=== PATIENT | female | born 1985 | race Caucasian/White ===

== ENCOUNTER → 2017-02-20 | Outpatient (REF) | payer MEDICARE ==
[~2017-02-20] MED LIST: /ADVA50050 INH; ADV100INH INH; ALBU17IN INH; ALBU17IN2 PO; ALBUPOW9 XX; AMIT50TA PO; BENA25TA4 PO; BENA25TA9 PO; BENEDRYL PO; CATA0.1T OR; CLON1TAB PO; COLA50CA3 PO; DILA2TAB PO; FERR325T3 PO; FOLITAB11 PO; GABA-283 PO; IBUP80TA PO; KLON1TAB PO; KLON2TAB PO; LASI20TA PO; LASI40TA PO; LYRI200C PO; METH40TA PO; MICO0.022 PV; MOM30SS PO; MULTTAB20 PO; ONDA4INJ4 IM; PREN1TAB11 PO; PRENATAL VITAMIN PO; PROSAC PO; PROZ20CA11 PO; ROPI2TAB PO; SUBO4MIS SL; SUBO8MIS SL; SYNT50TA OR; VICO5TAB PO; XANA0.25 OR; ZOFR20TA PO; [UNRECOGNIZED DRUG - OTHER] SL
== END ==
LOC: M LAB REF 12:23
PROVIDERS: ATTEND Surgery
DX: R30.0 Dysuria (principal)

== ENCOUNTER 2017-05-27 17:32 | Emergency (ER) | payer MEDICAID, MEDICARE ==
[~2017-05-27] VITALS: Ht 170.2 cm; Wt 65.1 kg
[~2017-05-27 17:32] MED LIST changes: +BENA25TA10 PO; -BENA25TA9 PO
[2017-05-27 18:34] LABS: CONTROL LINE UCG INT CTR LINE PRESENT
[2017-05-27 19:41] VITALS: BP 93/65
[2017-05-27 20:07] LABS: MEAN CORPUSCULAR HEMOGLOBIN 30.3 pg (27.0-33.0); MEAN CORPUSCULAR VOLUME 91.6 fl (80.0-96.0); WHITE BLOOD COUNT 4.2 K/mm3 (4.0-10.0)
[2017-05-27] MEDS ORDERED: IBUPROFEN 600 MG TAB PO ONE (20:15)
[2017-05-27 20:28] LABS: ALBUMIN 2.8 GM/DL (3.2-5.2); ALBUMIN/GLOBULIN RATIO 0.85 (1.00-1.93); ALKALINE PHOSPHATASE 75 U/L (45-117); ALT/SGPT 29 U/L (12-78); ANION GAP 14 MEQ/L (8-16); AST/SGOT 39 U/L (15-37); BILIRUBIN,DIRECT < 0.1 MG/DL (0.0-0.2); BILIRUBIN,TOTAL 0.5 MG/DL (0.2-1.0); BLOOD UREA NITROGEN 8 MG/DL (7-18); CALCIUM LEVEL 7.9 MG/DL (8.5-10.1); CARBON DIOXIDE LEVEL 14 MEQ/L (21-32); CHLORIDE LEVEL 112 MEQ/L (98-107); GLOMERULAR FILTRATION RATE > 60.0 (>60); GLUCOSE, FASTING 58 MG/DL (70-105); POTASSIUM SERUM 3.9 MEQ/L (3.5-5.1); SODIUM LEVEL 140 MEQ/L (136-145); TOTAL PROTEIN 6.1 GM/DL (6.4-8.2)
[2017-05-27] MEDS ORDERED: CIPR-249 PO (20:55)
[2017-05-27] MEDS ORDERED: LYRI200C PO (20:55)
[2017-05-27] MEDS ORDERED: GABA-283 PO (20:55)
[2017-05-27] MEDS ORDERED: CIPROFLOXACIN 500 MG TAB PO ONE (21:00)
[2017-05-27] MEDS ORDERED: CARISOPRODOL 350 MG TAB PO ONE (21:00)
== END 2017-05-27 21:21 | disposition home or self-care (01) ==
LOC: M ED 17:32
DX: N39.0 Urinary tract infection, site not specified (principal); J02.9 Acute pharyngitis, unspecified; R60.9 Edema, unspecified; F41.9 Anxiety disorder, unspecified; F17.210 Nicotine dependence, cigarettes, uncomplicated; Z88.1 Allergy status to other antibiotic agents; Z88.8 Allergy status to other drugs, medicaments and biological substances

== ENCOUNTER 2017-06-12 20:34 | Emergency (ER) | payer MEDICAID ==
[~2017-06-12] VITALS: Ht 170.2 cm; Wt 66.9 kg
[~2017-06-12 20:34] MED LIST changes: +CIPR-249 PO
[2017-06-12 21:26] VITALS: BP 118/73
[2017-06-12 21:35] LABS: BASO % 0.2 % (0.0-1.0); EOS # 0.1 K/mm3 (0.0-0.50); EOS % 2.5 % (0.0-3.0); LARGE UNSTAINED CELL # 0.1 K/mm3 (0.0-0.4); LARGE UNSTAINED CELL % 2.9 % (0.0-4.0); LYMPH # 0.6 K/mm3 (1.5-4.5); LYMPH % 19.1 % (24.0-44.0); MEAN CORPUSCULAR HEMOGLOBIN 29.8 pg (27.0-33.0); MEAN CORPUSCULAR HGB CONC 33.9 g/dl (32.0-36.5); MONO # 0.2 K/mm3 (0.0-0.8); MONO % 8.4 % (0.0-5.0); NEUTROPHILS # 1.9 K/mm3 (1.8-7.7); NEUTROPHILS % 66.9 % (36.0-66.0); PLATELET COUNT, AUTOMATED 292 k/mm3 (150-450); RED CELL DISTRIBUTION WIDTH 13.8 % (11.5-14.5); WHITE BLOOD COUNT 2.9 K/mm3 (4.0-10.0)
[2017-06-12] MEDS ORDERED: KETOROLAC 30 MG/ML VIAL (J1885) IV ONE (22:00)
[2017-06-12] MEDS ORDERED: KETOROLAC 60 MG/2 ML VIAL (J1885) IM ONE (22:00)
== END 2017-06-12 22:27 | disposition home or self-care (01) ==
LOC: M ED 20:34
DX: N92.0 Excessive and frequent menstruation with regular cycle (principal); J45.909 Unspecified asthma, uncomplicated; F32.9 Major depressive disorder, single episode, unspecified; G25.81 Restless legs syndrome; F17.200 Nicotine dependence, unspecified, uncomplicated; Z79.899 Other long term (current) drug therapy; Z88.1 Allergy status to other antibiotic agents; Z88.8 Allergy status to other drugs, medicaments and biological substances
CPT/HCPCS: 84702; 85025; 86901; 96374; 99283; J1885

== ENCOUNTER 2017-07-21 13:59 | Emergency (ER) | payer OTHER, MEDICAID ==
[~2017-07-21] VITALS: Ht 170.2 cm; Wt 66.8 kg
[2017-07-21] MEDS ORDERED: LYRI300C PO (14:12)
[2017-07-21] MEDS ORDERED: SERO1TAB PO (14:12)
[2017-07-21] MEDS ORDERED: KETOROLAC 30 MG/ML VIAL (J1885) IV ONE (16:30)
[2017-07-21] MEDS ORDERED: NS 500 ML IV ONE (16:30)
[2017-07-21 17:04] LABS: BASO % 0.2 % (0.0-1.0); EOS # 0.1 K/mm3 (0.0-0.50); EOS % 2.6 % (0.0-3.0); LARGE UNSTAINED CELL # 0.1 K/mm3 (0.0-0.4); LARGE UNSTAINED CELL % 1.4 % (0.0-4.0); LYMPH # 0.6 K/mm3 (1.5-4.5); LYMPH % 12.8 % (24.0-44.0); MEAN CORPUSCULAR HEMOGLOBIN 29.1 pg (27.0-33.0); MEAN CORPUSCULAR HGB CONC 33.6 g/dl (32.0-36.5); MEAN CORPUSCULAR VOLUME 86.5 fl (80.0-96.0); MONO # 0.2 K/mm3 (0.0-0.8); MONO % 5.6 % (0.0-5.0); NEUTROPHILS # 3.3 K/mm3 (1.8-7.7); NEUTROPHILS % 77.3 % (36.0-66.0); PLATELET COUNT, AUTOMATED 368 k/mm3 (150-450); RED CELL DISTRIBUTION WIDTH 13.8 % (11.5-14.5); WHITE BLOOD COUNT 4.2 K/mm3 (4.0-10.0)
[2017-07-21 17:58] LABS: CONTROL LINE HCG INT CTR LINE PRESENT
[2017-07-21] MEDS ORDERED: ISOVUE-370 76% 100ML VIAL (Q9967) As Ordered ONE (18:05)
[2017-07-21 18:10] LABS: ALBUMIN 2.2 GM/DL (3.2-5.2); ALBUMIN/GLOBULIN RATIO 1.05 (1.00-1.93); ALKALINE PHOSPHATASE 59 U/L (45-117); ALT/SGPT 18 U/L (12-78); ANION GAP 5 MEQ/L (8-16); AST/SGOT 26 U/L (15-37); BILIRUBIN,DIRECT < 0.1 MG/DL (0.0-0.2); BILIRUBIN,TOTAL 0.2 MG/DL (0.2-1.0); BLOOD UREA NITROGEN 7 MG/DL (7-18); CALCIUM LEVEL 7.4 MG/DL (8.5-10.1); CARBON DIOXIDE LEVEL 27 MEQ/L (21-32); CHLORIDE LEVEL 112 MEQ/L (98-107); CREATININE FOR GFR 0.39 MG/DL (0.55-1.02); GLOMERULAR FILTRATION RATE > 60.0 (>60); GLUCOSE, FASTING 77 MG/DL (70-105); SODIUM LEVEL 144 MEQ/L (136-145); TOTAL PROTEIN 4.3 GM/DL (6.4-8.2)
[2017-07-21 18:14] LABS: INR 0.96
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
[2017-07-21] MEDS ORDERED: MORPHINE 4 MG/ML 1ML SYRINGE IV ONE ×2 (18:45→20:15)
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
[2017-07-21 19:35] LABS: METHADONE URINE NEGATIVE (NEGATIVE)
[2017-07-21] MEDS ORDERED: DOXYCYCLINE HYCLATE 100 MG TAB PO ONE (20:30)
[2017-07-21] MEDS ORDERED: DOXY-278 PO (20:35)
[2017-07-21 20:47] VITALS: BP 103/68
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
== END 2017-07-21 21:03 | disposition home or self-care (01) ==
LOC: EDBD 13:59 → M ED 13:59
DX: S40.021A Contusion of right upper arm, initial encounter (principal); V43.62XA Car passenger injured in collision with other type car in traffic accident, initial encounter; Y92.410 Unspecified street and highway as the place of occurrence of the external cause; Y93.9 Activity, unspecified; Y99.9 Unspecified external cause status; R91.8 Other nonspecific abnormal finding of lung field; R93.5 Abnormal findings on diagnostic imaging of other abdominal regions, including retroperitoneum; K80.20 Calculus of gallbladder without cholecystitis without obstruction; F41.9 Anxiety disorder, unspecified; F32.9 Major depressive disorder, single episode, unspecified; F17.200 Nicotine dependence, unspecified, uncomplicated; F43.10 Post-traumatic stress disorder, unspecified; F19.10 Other psychoactive substance abuse, uncomplicated; Z86.19 Personal history of other infectious and parasitic diseases; G25.81 Restless legs syndrome; Q43.3 Congenital malformations of intestinal fixation; K90.49 Malabsorption due to intolerance, not elsewhere classified; Z79.899 Other long term (current) drug therapy; Z88.1 Allergy status to other antibiotic agents; Z88.8 Allergy status to other drugs, medicaments and biological substances
CPT/HCPCS: 36415; 70450; 70486; 71260; 72125; 73060; 73090; 73130; 74177; 80048; 80076; 80307; 81001; 84703; 85025; 85610; 85730; 93041; 94760; 96361; 96374; 96375; 96376; 99284; G0480; J1885; Q9967

== ENCOUNTER → 2017-11-01 | Outpatient (REF) | payer MEDICAID ==
[~2017-11-01] MED LIST changes: +DOXY-278 PO; +LYRI300C PO; +SERO1TAB PO
== END ==
LOC: M LAB REF 16:57
PROVIDERS: ATTEND Family Medicine Addiction Medicine
DX: F19.11 Other psychoactive substance abuse, in remission (principal)

== ENCOUNTER → 2017-11-10 | Outpatient (REF) | payer MEDICARE, MEDICAID | LOC: M LAB REF 13:02 | PROVIDERS: ATTEND Family Medicine Addiction Medicine | DX: F19.11 Other psychoactive substance abuse, in remission (principal) | CPT/HCPCS: 80307; G0480 ==

== ENCOUNTER → 2017-11-13 | Outpatient (REF) | payer MEDICARE, MEDICAID | LOC: M LAB REF 17:04 | PROVIDERS: ATTEND Family Medicine Addiction Medicine | DX: F19.11 Other psychoactive substance abuse, in remission (principal) | CPT/HCPCS: 80307; G0480 ==

== ENCOUNTER → 2017-11-17 | Outpatient (REF) | payer MEDICARE, MEDICAID | LOC: M LAB REF 11-18 09:35 | DX: F19.11 Other psychoactive substance abuse, in remission (principal); R30.0 Dysuria | CPT/HCPCS: G0480 ==

== ENCOUNTER → 2017-12-01 | Outpatient (REF) | payer MEDICARE, MEDICAID ==
[2017-12-11 14:11] LABS: AMPHETAMINE SCREEN, URINE Negative ng/mL (Cutoff=1000); BARBITURATES SCREEN, URINE Negative ng/mL (Cutoff=200); BENZODIAZEPINES, URINE SCREEN Negative ng/mL (Cutoff=200); CANNABINOID SCREEN, URINE Negative ng/mL (Cutoff=20); COCAINE SCREEN, URINE Negative ng/mL (Cutoff=300); CREATININE, URINE 77.2 mg/dL (20.0-300.0); FENTANYL URINE SCREEN Negative pg/mL (Cutoff=2000); METHADONE, URINE SCREEN Negative ng/mL (Cutoff=300); NALOXONE RESULT Positive (.); OPIATE SCREEN, URINE Negative ng/mL (Cutoff=300); OXYCODONE, SCREEN, URINE Negative ng/mL (Cutoff=100); PCP SCREEN, URINE Negative ng/mL (Cutoff=25); SPECIFIC GRAVITY, URINE 1.013 (.); URINE BUPRENORPHINE Positive (.); URINE BUPRENORPHINE Positive (Cutoff=10); URINE BUPRENORPHINE See Final Results ng/mL (Cutoff=10); URINE BUPRENORPHINE CONFIRM 198 ng/mL (Cutoff=10); URINE NORBUPRENORPHINE Positive (.); URINE NORBUPRENORPHINE CONFIRM 692 ng/mL (Cutoff=10); pH, URINE 8.2 (4.5-8.9)
== END ==
LOC: M LAB REF 16:21
DX: F19.11 Other psychoactive substance abuse, in remission (principal); B96.29 Other Escherichia coli [E. coli] as the cause of diseases classified elsewhere; R39.9 Unspecified symptoms and signs involving the genitourinary system
CPT/HCPCS: 87186

== ENCOUNTER 2017-12-12 13:56 | Emergency (ER) | payer MEDICARE, MEDICAID ==
[2017-12-12] MEDS: NS 1,000 ML IV (16:00)
[2017-12-12] MEDS: methylPREDNISolone INJ 125 MG/2 ML VIAL (J2930) IV (16:00)
[2017-12-12] MEDS ORDERED: ONDANSETRON 4MG/2ML VIAL (J2405) IV (16:00)
[2017-12-12] MEDS: ALBUTEROL SULFATE 2.5 MG/0.5 ML INH NEB SOLN NEB ×2 (16:18→21:50)
[2017-12-12 17:08] LABS: KETONE, URINE AUTO RFX NEGATIVE (NEGATIVE); LEUKOCYTE ESTERASE UR AUTO RFX NEGATIVE (NEGATIVE); MUCUS, URINE RFX SMALL (NEGATIVE); NITRITE, URINE AUTO RFX NEGATIVE (NEGATIVE); RBC, URINE AUTO RFX 3 /HPF (0-3); SPECIFIC GRAVITY UR AUTO RFX 1.016 (1.002-1.035); SQUAM EPITHELIAL CELL UR AURFX 0 /HPF (0-6); WBC, URINE AUTO RFX 0 /HPF (0-3)
[2017-12-12] MEDS: ONDANSETRON 4 MG ORAL DISINTEGRATING TAB (S0181) PO ×2 (17:30→23:29)
[2017-12-12 17:58] LABS: BASO % 0.2 % (0.0-1.0); HEMATOCRIT 49.5 % (36.0-47.0); HEMOGLOBIN 16.3 g/dl (12.0-16.0); IMMATURE GRANULOCYTE % 0.2 % (0-0); LYMPH # 0.4 10^3/uL (1.5-4.5); LYMPH % 9.3 % (24.0-44.0); MEAN CORPUSCULAR HEMOGLOBIN 25.8 pg (27.0-33.0); MEAN CORPUSCULAR HGB CONC 32.9 g/dl (32.0-36.5); MEAN CORPUSCULAR VOLUME 78.2 fl (80.0-96.0); MONO # 0.1 10^3/uL (0.0-0.8); MONO % 2.8 % (0.0-5.0); NEUTROPHILS # 3.8 10^3/uL (1.8-7.7); NEUTROPHILS % 87.5 % (36.0-66.0); PLATELET COUNT, AUTOMATED 586 10^3/uL (150-450); RED BLOOD COUNT 6.33 10^6/uL (4.00-5.40); RED CELL DISTRIBUTION WIDTH 16.3 % (11.5-14.5); WHITE BLOOD COUNT 4.3 10^3/uL (4.0-10.0)
[2017-12-12 18:12] LABS: CONTROL LINE HCG INT CTR LINE PRESENT; HCG, SERUM QUALITATIVE NEGATIVE (NEGATIVE)
[2017-12-12 18:22] LABS: ALBUMIN 3.3 GM/DL (3.2-5.2); ALBUMIN/GLOBULIN RATIO 1.03 (1.00-1.93); ALKALINE PHOSPHATASE 88 U/L (45-117); ALT/SGPT 16 U/L (12-78); ANION GAP 8 MEQ/L (8-16); AST/SGOT 19 U/L (7-37); BILIRUBIN,DIRECT < 0.1 MG/DL (0.0-0.2); BILIRUBIN,TOTAL 0.2 MG/DL (0.2-1.0); BLOOD UREA NITROGEN 8 MG/DL (7-18); CALCIUM LEVEL 8.3 MG/DL (8.5-10.1); CARBON DIOXIDE LEVEL 26 MEQ/L (21-32); CHLORIDE LEVEL 108 MEQ/L (98-107); GLOMERULAR FILTRATION RATE > 60.0 (>60); GLUCOSE, FASTING 95 MG/DL (70-105); POTASSIUM SERUM 4.7 MEQ/L (3.5-5.1); SODIUM LEVEL 142 MEQ/L (136-145); TOTAL PROTEIN 6.5 GM/DL (6.4-8.2)
[2017-12-12 18:25] LABS: LACTIC ACID SEPSIS PROTOCOL 0.9 MMOL/L (0.4-2.0)
[2017-12-12] MEDS: KETOROLAC 30 MG/ML VIAL (J1885) IV (23:15)
[2017-12-12] MEDS: QUEtiapine FUMARATE 100 MG TAB PO (23:45)
== END 2017-12-13 00:04 | disposition home or self-care (01) ==
LOC: M ED 12-13 00:04
DX: K52.9 Noninfective gastroenteritis and colitis, unspecified (principal); E86.0 Dehydration; F11.20 Opioid dependence, uncomplicated; J45.909 Unspecified asthma, uncomplicated; F17.210 Nicotine dependence, cigarettes, uncomplicated; Z79.899 Other long term (current) drug therapy; Z88.1 Allergy status to other antibiotic agents; Z88.8 Allergy status to other drugs, medicaments and biological substances
CPT/HCPCS: J1885

== ENCOUNTER → 2017-12-14 | Outpatient (REF) | payer MEDICARE, MEDICAID ==
[2017-12-25 14:12] LABS: ALPRAZOLAM, URINE Positive (.); ALPRAZOLAM, URINE CONFIRM 192 ng/mL (Cutoff=100); AMPHETAMINE SCREEN, URINE Negative ng/mL (Cutoff=1000); BARBITURATES SCREEN, URINE Negative ng/mL (Cutoff=200); BENZODIAZEPINES, URINE Positive ng/mL (Cutoff=100); BENZODIAZEPINES, URINE SCREEN See Final Results ng/mL (Cutoff=200); CANNABINOID SCREEN, URINE Negative ng/mL (Cutoff=20); CLONAZEPAM, URINE Negative (Cutoff=100); COCAINE SCREEN, URINE Negative ng/mL (Cutoff=300); CREATININE, URINE 161.8 mg/dL (20.0-300.0); FENTANYL URINE SCREEN Negative pg/mL (Cutoff=2000); FLURAZEPAM, URINE Negative (Cutoff=100); LORAZEPAM, URINE Negative (Cutoff=100); METHADONE, URINE SCREEN Negative ng/mL (Cutoff=300); MIDAZOLAM, URINE Negative (Cutoff=100); NORDIAZEPAM, URINE Negative (Cutoff=100); OPIATE SCREEN, URINE Negative ng/mL (Cutoff=300); OXAZEPAM, URINE Negative (Cutoff=100); OXYCODONE, SCREEN, URINE Negative ng/mL (Cutoff=100); PCP SCREEN, URINE Negative ng/mL (Cutoff=25); SPECIFIC GRAVITY, URINE 1.017 (.); TEMAZEPAM, URINE Negative (Cutoff=100); TRIAZOLAM, URINE Negative (Cutoff=100); URINE BUPRENORPHINE Positive (.); URINE BUPRENORPHINE Positive (Cutoff=10); URINE BUPRENORPHINE See Final Results ng/mL (Cutoff=10); URINE BUPRENORPHINE CONFIRM 40 ng/mL (Cutoff=10); URINE NORBUPRENORPHINE Positive (.); URINE NORBUPRENORPHINE CONFIRM 428 ng/mL (Cutoff=10); pH, URINE 5.6 (4.5-8.9)
== END ==
LOC: M LAB REF 11:58
DX: F19.11 Other psychoactive substance abuse, in remission (principal)
CPT/HCPCS: G0480

== ENCOUNTER → 2017-12-15 | Outpatient (REF) | payer MEDICARE, MEDICAID ==
[2017-12-25 08:06] LABS: ALPRAZOLAM, URINE Negative (Cutoff=100); AMPHETAMINE SCREEN, URINE Negative ng/mL (Cutoff=1000); BARBITURATES SCREEN, URINE Negative ng/mL (Cutoff=200); BENZODIAZEPINES, URINE Positive ng/mL (Cutoff=100); BENZODIAZEPINES, URINE SCREEN See Final Results ng/mL (Cutoff=200); CANNABINOID SCREEN, URINE Negative ng/mL (Cutoff=20); CLONAZEPAM, URINE Positive (.); CLONAZEPAM, URINE CONFIRM 464 ng/mL (Cutoff=100); COCAINE SCREEN, URINE Negative ng/mL (Cutoff=300); CREATININE, URINE 138.7 mg/dL (20.0-300.0); FENTANYL URINE SCREEN Negative pg/mL (Cutoff=2000); FLURAZEPAM, URINE Negative (Cutoff=100); LORAZEPAM, URINE Negative (Cutoff=100); METHADONE, URINE SCREEN Negative ng/mL (Cutoff=300); MIDAZOLAM, URINE Negative (Cutoff=100); NALOXONE RESULT Positive (.); NORDIAZEPAM, URINE Negative (Cutoff=100); OPIATE SCREEN, URINE Negative ng/mL (Cutoff=300); OXAZEPAM, URINE Negative (Cutoff=100); OXYCODONE, SCREEN, URINE Negative ng/mL (Cutoff=100); PCP SCREEN, URINE Negative ng/mL (Cutoff=25); SPECIFIC GRAVITY, URINE 1.023 (.); TEMAZEPAM, URINE Negative (Cutoff=100); TRIAZOLAM, URINE Negative (Cutoff=100); URINE BUPRENORPHINE Positive (.); URINE BUPRENORPHINE Positive (Cutoff=10); URINE BUPRENORPHINE See Final Results ng/mL (Cutoff=10); URINE BUPRENORPHINE CONFIRM 76 ng/mL (Cutoff=10); URINE NORBUPRENORPHINE Positive (.); URINE NORBUPRENORPHINE CONFIRM 348 ng/mL (Cutoff=10)
== END ==
LOC: M LAB REF 16:21
DX: F19.11 Other psychoactive substance abuse, in remission (principal)
CPT/HCPCS: G0480

== ENCOUNTER → 2017-12-22 | Outpatient (REF) | payer MEDICARE, MEDICAID ==
[2018-01-02 14:16] LABS: ALPRAZOLAM, URINE Negative (Cutoff=100); AMPHETAMINE SCREEN, URINE Negative ng/mL (Cutoff=1000); BARBITURATES SCREEN, URINE Negative ng/mL (Cutoff=200); BENZODIAZEPINES, URINE Positive ng/mL (Cutoff=100); BENZODIAZEPINES, URINE SCREEN See Final Results ng/mL (Cutoff=200); CANNABINOID SCREEN, URINE Negative ng/mL (Cutoff=20); CLONAZEPAM, URINE Positive (.); CLONAZEPAM, URINE CONFIRM 562 ng/mL (Cutoff=100); COCAINE SCREEN, URINE Negative ng/mL (Cutoff=300); CREATININE, URINE 92.8 mg/dL (20.0-300.0); FENTANYL URINE SCREEN Negative pg/mL (Cutoff=2000); FLURAZEPAM, URINE Negative (Cutoff=100); LORAZEPAM, URINE Negative (Cutoff=100); METHADONE, URINE SCREEN Negative ng/mL (Cutoff=300); MIDAZOLAM, URINE Negative (Cutoff=100); NORDIAZEPAM, URINE Negative (Cutoff=100); OPIATE SCREEN, URINE Negative ng/mL (Cutoff=300); OXAZEPAM, URINE Negative (Cutoff=100); OXYCODONE, SCREEN, URINE Negative ng/mL (Cutoff=100); PCP SCREEN, URINE Negative ng/mL (Cutoff=25); SPECIFIC GRAVITY, URINE 1.019 (.); TEMAZEPAM, URINE Negative (Cutoff=100); TRIAZOLAM, URINE Negative (Cutoff=100); URINE BUPRENORPHINE Positive (.); URINE BUPRENORPHINE Positive (Cutoff=10); URINE BUPRENORPHINE See Final Results ng/mL (Cutoff=10); URINE BUPRENORPHINE CONFIRM 334 ng/mL (Cutoff=10); URINE NORBUPRENORPHINE Positive (.); URINE NORBUPRENORPHINE CONFIRM 750 ng/mL (Cutoff=10); pH, URINE 5.2 (4.5-8.9)
== END ==
LOC: M LAB REF 18:32
DX: F19.11 Other psychoactive substance abuse, in remission (principal)
CPT/HCPCS: G0480

== ENCOUNTER → 2017-12-28 | Outpatient (REF) | payer MEDICARE, MEDICAID | LOC: M LAB REF 12-29 12:13 | DX: F19.11 Other psychoactive substance abuse, in remission (principal) | CPT/HCPCS: G0480 ==

== ENCOUNTER 2018-06-25 01:00 | Emergency (ER) | payer MEDICARE, MEDICAID ==
[2018-06-25] MEDS: NS 1,000 ML IV ×2 (02:30)
[2018-06-25 02:48] LABS: EOS # 0.1 10^3/uL (0.0-0.50); EOS % 3.1 % (0.0-3.0); HEMATOCRIT 42.8 % (36.0-47.0); HEMOGLOBIN 13.8 g/dl (12.0-15.5); IMMATURE GRANULOCYTE % 0.3 % (0-3.0); LYMPH # 0.7 10^3/uL (1.5-4.5); LYMPH % 17.5 % (24.0-44.0); MEAN CORPUSCULAR HEMOGLOBIN 25.5 pg (27.0-33.0); MEAN CORPUSCULAR HGB CONC 32.2 g/dl (32.0-36.5); MEAN CORPUSCULAR VOLUME 79.1 fl (80.0-96.0); MONO # 0.4 10^3/uL (0.0-0.8); MONO % 10.5 % (0.0-5.0); NEUTROPHILS # 2.6 10^3/uL (1.8-7.7); NEUTROPHILS % 68.6 % (36.0-66.0); PLATELET COUNT, AUTOMATED 319 10^3/uL (150-450); RED BLOOD COUNT 5.41 10^6/uL (4.00-5.40); RED CELL DISTRIBUTION WIDTH 16.7 % (11.5-14.5); WHITE BLOOD COUNT 3.8 10^3/uL (4.0-10.0)
[2018-06-25 02:54] LABS: APPEARANCE, URINE HAZY (CLEAR); BACTERIA, URINE AUTO NEGATIVE (NEGATIVE); BILIRUBIN, URINE AUTO 1+ (NEGATIVE); BLOOD, URINE BLOOD NEGATIVE (NEGATIVE); COLOR, URINE AMBER (YELLOW); GLUCOSE, URINE (UA) AUTO NEGATIVE (NEGATIVE); KETONE, URINE AUTO TRACE mg/dL (NEGATIVE); LEUKOCYTE ESTERASE, URINE AUTO TRACE (NEGATIVE); MUCUS, URINE LARGE (NEGATIVE); NITRITE, URINE AUTO NEGATIVE (NEGATIVE); PROTEIN, URINE AUTO 1+ mg/dL (NEGATIVE); RBC, URINE AUTO 2 /HPF (0-3); SPECIFIC GRAVITY URINE AUTO 1.034 (1.002-1.035); SQUAMOUS EPITHELIAL CELL UR AU 2 /HPF (0-6); WBC, URINE AUTO 3 /HPF (0-3)
[2018-06-25] MEDS: METOCLOPRAMIDE INJ 10MG/2ML VIAL (J2765) IV ×2 (03:00)
[2018-06-25 03:10] LABS: ALBUMIN 1.5 GM/DL (3.2-5.2); ALBUMIN/GLOBULIN RATIO 0.75 (1.00-1.93); ALKALINE PHOSPHATASE 64 U/L (45-117); ALT/SGPT 12 U/L (12-78); ANION GAP 5 MEQ/L (8-16); AST/SGOT 14 U/L (7-37); BILIRUBIN,DIRECT < 0.1 MG/DL (0.0-0.2); BILIRUBIN,TOTAL 0.2 MG/DL (0.2-1.0); BLOOD UREA NITROGEN 9 MG/DL (7-18); CARBON DIOXIDE LEVEL 32 MEQ/L (21-32); CHLORIDE LEVEL 110 MEQ/L (98-107); CREATININE FOR GFR 0.51 MG/DL (0.55-1.30); GLOMERULAR FILTRATION RATE > 60.0 (>60); GLUCOSE, FASTING 72 MG/DL (70-100); LIPASE 55 U/L (73-393); POTASSIUM SERUM 3.5 MEQ/L (3.5-5.1); SODIUM LEVEL 147 MEQ/L (136-145); TOTAL PROTEIN 3.5 GM/DL (6.4-8.2)
[2018-06-25 03:11] LABS: CONTROL LINE HCG INT CTR LINE PRESENT; HCG, SERUM QUALITATIVE NEGATIVE (NEGATIVE)
[2018-06-25 04:22] LABS: CHLAMYDIA DNA AMPLIFICATION NEGATIVE (NEGATIVE); GC DNA AMPLIFICATION NEGATIVE (NEGATIVE)
== END 2018-06-25 04:01 | disposition home or self-care (01) ==
LOC: M ED 01:00
DX: K52.9 Noninfective gastroenteritis and colitis, unspecified (principal); N76.0 Acute vaginitis; F19.10 Other psychoactive substance abuse, uncomplicated; F17.200 Nicotine dependence, unspecified, uncomplicated; Z88.1 Allergy status to other antibiotic agents; Z88.8 Allergy status to other drugs, medicaments and biological substances; Z79.899 Other long term (current) drug therapy
CPT/HCPCS: J2765

== ENCOUNTER 2018-07-25 17:04 | Inpatient (IN) | payer MEDICARE, MEDICAID ==
[2018-07-25 19:14] LABS: BASO % 0.2 % (0.0-1.0); EOS # 0.2 10^3/uL (0.0-0.50); HEMATOCRIT 43.8 % (36.0-47.0); HEMOGLOBIN 13.8 g/dl (12.0-15.5); IMMATURE GRANULOCYTE % 0.2 % (0-3.0); LYMPH # 0.6 10^3/uL (1.5-4.5); LYMPH % 14.4 % (24.0-44.0); MEAN CORPUSCULAR HEMOGLOBIN 25.7 pg (27.0-33.0); MEAN CORPUSCULAR HGB CONC 31.5 g/dl (32.0-36.5); MEAN CORPUSCULAR VOLUME 81.4 fl (80.0-96.0); MONO # 0.4 10^3/uL (0.0-0.8); MONO % 8.7 % (0.0-5.0); NEUTROPHILS # 3.1 10^3/uL (1.8-7.7); NEUTROPHILS % 72.5 % (36.0-66.0); PLATELET COUNT, AUTOMATED 266 10^3/uL (150-450); RED BLOOD COUNT 5.38 10^6/uL (4.00-5.40); RED CELL DISTRIBUTION WIDTH 17.8 % (11.5-14.5); WHITE BLOOD COUNT 4.3 10^3/uL (4.0-10.0)
[2018-07-25 19:16] LABS: CONTROL LINE HCG INT CTR LINE PRESENT; HCG, SERUM QUALITATIVE NEGATIVE (NEGATIVE)
[2018-07-25 19:21] LABS: ALBUMIN 0.9 GM/DL (3.2-5.2); ALBUMIN/GLOBULIN RATIO 0.31 (1.00-1.93); ALKALINE PHOSPHATASE 71 U/L (45-117); ALT/SGPT 14 U/L (12-78); ANION GAP 4 MEQ/L (8-16); AST/SGOT 20 U/L (7-37); BILIRUBIN,DIRECT < 0.1 MG/DL (0.0-0.2); BILIRUBIN,TOTAL 0.1 MG/DL (0.2-1.0); BLOOD UREA NITROGEN 11 MG/DL (7-18); CALCIUM LEVEL 6.9 MG/DL (8.5-10.1); CARBON DIOXIDE LEVEL 33 MEQ/L (21-32); CHLORIDE LEVEL 108 MEQ/L (98-107); CREATININE FOR GFR 0.53 MG/DL (0.55-1.30); GLOMERULAR FILTRATION RATE > 60.0 (>60); GLUCOSE, FASTING 75 MG/DL (70-100); LIPASE 94 U/L (73-393); POTASSIUM SERUM 4.5 MEQ/L (3.5-5.1); SODIUM LEVEL 145 MEQ/L (136-145); TOTAL PROTEIN 3.8 GM/DL (6.4-8.2)
[2018-07-25] MEDS ORDERED: ISOVUE-370 76% 100ML VIAL (Q9967) As Ordered (19:27)
[2018-07-25 19:45] LABS: LACTIC ACID SEPSIS PROTOCOL 0.7 MMOL/L (0.4-2.0)
[2018-07-25 20:18] LABS: AMPHETAMINES LEVEL URINE NEGATIVE (NEGATIVE); BARBITURATES URINE NEGATIVE (NEGATIVE); BENZODIAZEPINES URINE NEGATIVE (NEGATIVE); CANNABINOIDS URINE NEGATIVE (NEGATIVE); COCAINE METABOLITE URINE NEGATIVE (NEGATIVE); METHADONE URINE NEGATIVE (NEGATIVE); OPIATES URINE NEGATIVE (NEGATIVE); PHENCYCLIDINE URINE NEGATIVE (NEGATIVE)
[2018-07-25 21:38] LABS: TYPE AND SCREEN 1 1
[2018-07-26] MEDS: cefTRIAXone SOD 2 GM in D5W MINI-BAG PLUS 50 ML IV (00:23)
[2018-07-26] MEDS: QUEtiapine FUMARATE 200 MG TAB PO ×2 (00:23→21:57)
[2018-07-26] MEDS: clonazePAM 1 MG TAB PO ×4 (00:23→21:57)
[2018-07-26] MEDS: GABAPENTIN 400 MG CAP PO ×4 (00:24→21:57)
[2018-07-26] MEDS: PREGABALIN 100 MG CAP (LYRICA) PO ×4 (00:24→21:57)
[2018-07-26] MEDS ORDERED: POLYVINYL ALCOHOL OPHTH SOLN 15 ML(LIQUITEARS) OD (01:45)
[2018-07-26] MEDS: methylPREDNISolone INJ 125 MG/2 ML VIAL (J2930) IV ×3 (02:00→18:56)
[2018-07-26] MEDS: HEPARIN SOD (PORCINE) 5000 UNITS/ML VIAL SC ×3 (05:49→21:57)
[2018-07-26 07:50] LABS: HEMATOCRIT 41.6 % (36.0-47.0); HEMOGLOBIN 13.3 g/dl (12.0-15.5); MEAN CORPUSCULAR VOLUME 80.2 fl (80.0-96.0); RED BLOOD COUNT 5.19 10^6/uL (4.00-5.40); WHITE BLOOD COUNT 4.1 10^3/uL (4.0-10.0)
[2018-07-26 07:51] LABS: EOS % 0.2 % (0.0-3.0); IMMATURE GRANULOCYTE % 0.5 % (0-3.0); LYMPH # 0.4 10^3/uL (1.5-4.5); LYMPH % 8.6 % (24.0-44.0); MEAN CORPUSCULAR HEMOGLOBIN 25.6 pg (27.0-33.0); MONO # 0.1 10^3/uL (0.0-0.8); MONO % 1.5 % (0.0-5.0); NEUTROPHILS # 3.6 10^3/uL (1.8-7.7); NEUTROPHILS % 89.2 % (36.0-66.0); PLATELET COUNT, AUTOMATED 264 10^3/uL (150-450); RED CELL DISTRIBUTION WIDTH 17.4 % (11.5-14.5)
[2018-07-26 08:16] LABS: ALBUMIN 1.2 GM/DL (3.2-5.2); ALBUMIN/GLOBULIN RATIO 0.52 (1.00-1.93); ALKALINE PHOSPHATASE 74 U/L (45-117); ALT/SGPT 14 U/L (12-78); ANION GAP 6 MEQ/L (8-16); AST/SGOT 17 U/L (7-37); BILIRUBIN,TOTAL < 0.1 MG/DL (0.2-1.0); BLOOD UREA NITROGEN 10 MG/DL (7-18); CALCIUM LEVEL 7.1 MG/DL (8.5-10.1); CARBON DIOXIDE LEVEL 29 MEQ/L (21-32); CHLORIDE LEVEL 109 MEQ/L (98-107); CHOLESTEROL LEVEL 80 MG/DL (<200); GLOMERULAR FILTRATION RATE > 60.0 (>60); GLUCOSE, FASTING 153 MG/DL (70-100); HDL CHOLESTEROL 20 MG/DL (>40); MAGNESIUM LEVEL 1.9 MG/DL (1.8-2.4); NON-HDL-C 60 MG/DL; POTASSIUM SERUM 4.7 MEQ/L (3.5-5.1); SODIUM LEVEL 144 MEQ/L (136-145); TOTAL PROTEIN 3.5 GM/DL (6.4-8.2); TRIGLYCERIDES LEVEL 65 MG/DL (<150)
[2018-07-26] MEDS: BUPRENORPHINE/NALOXONE 2-0.5MG SUBLINGUAL TABLET(SUBOXONE) SL ×3 (11:29→21:57)
[2018-07-26] MEDS: SLF 3 ML SYR IV ×3 (16:14→21:58)
[2018-07-26] MEDS: FUROSEMIDE 40 MG/4 ML VIAL (J1940) IV (18:50)
[2018-07-26 20:44] LABS: TYPE AND SCREEN 1
[2018-07-27] MEDS: methylPREDNISolone INJ 125 MG/2 ML VIAL (J2930) IV ×3 (01:54→18:00)
[2018-07-27] MEDS: HEPARIN SOD (PORCINE) 5000 UNITS/ML VIAL SC ×3 (05:21→21:14)
[2018-07-27] MEDS: FUROSEMIDE 40 MG/4 ML VIAL (J1940) IV ×2 (05:21→23:18)
[2018-07-27] MEDS: SLF 3 ML SYR IV ×3 (05:22→21:15)
[2018-07-27 05:40] LABS: TYPE AND SCREEN 1
[2018-07-27 05:53] LABS: HEMATOCRIT 38.1 % (36.0-47.0); HEMOGLOBIN 12.5 g/dl (12.0-15.5); IMMATURE GRANULOCYTE % 0.4 % (0-3.0); LYMPH # 0.4 10^3/uL (1.5-4.5); LYMPH % 6.1 % (24.0-44.0); MEAN CORPUSCULAR HGB CONC 32.8 g/dl (32.0-36.5); MEAN CORPUSCULAR VOLUME 79.2 fl (80.0-96.0); MONO # 0.1 10^3/uL (0.0-0.8); MONO % 1.5 % (0.0-5.0); NEUTROPHILS # 6.3 10^3/uL (1.8-7.7); PLATELET COUNT, AUTOMATED 334 10^3/uL (150-450); RED BLOOD COUNT 4.81 10^6/uL (4.00-5.40); RED CELL DISTRIBUTION WIDTH 17.5 % (11.5-14.5); WHITE BLOOD COUNT 6.9 10^3/uL (4.0-10.0)
[2018-07-27 06:09] LABS: ALBUMIN 1.5 GM/DL (3.2-5.2); ALBUMIN/GLOBULIN RATIO 0.56 (1.00-1.93); ALKALINE PHOSPHATASE 60 U/L (45-117); ALT/SGPT 12 U/L (12-78); ANION GAP 6 MEQ/L (8-16); AST/SGOT 12 U/L (7-37); BILIRUBIN,TOTAL < 0.1 MG/DL (0.2-1.0); BLOOD UREA NITROGEN 14 MG/DL (7-18); CALCIUM LEVEL 7.3 MG/DL (8.5-10.1); CARBON DIOXIDE LEVEL 31 MEQ/L (21-32); CHLORIDE LEVEL 108 MEQ/L (98-107); CREATININE FOR GFR 0.58 MG/DL (0.55-1.30); GLOMERULAR FILTRATION RATE > 60.0 (>60); GLUCOSE, FASTING 152 MG/DL (70-100); MAGNESIUM LEVEL 1.9 MG/DL (1.8-2.4); POTASSIUM SERUM 4.1 MEQ/L (3.5-5.1); SODIUM LEVEL 145 MEQ/L (136-145); TOTAL PROTEIN 4.2 GM/DL (6.4-8.2)
[2018-07-27] MEDS: clonazePAM 1 MG TAB PO ×3 (08:18→21:14)
[2018-07-27] MEDS: GABAPENTIN 400 MG CAP PO ×3 (08:18→21:14)
[2018-07-27] MEDS: PREGABALIN 100 MG CAP (LYRICA) PO ×3 (08:18→21:14)
[2018-07-27] MEDS: BUPRENORPHINE/NALOXONE 2-0.5MG SUBLINGUAL TABLET(SUBOXONE) SL ×3 (08:19→21:14)
[2018-07-27 12:14] LABS: HEPATITIS B SURFACE ANTIGEN NEGATIVE (NEGATIVE)
[2018-07-27 12:25] LABS: HIV 1&2 SCREEN CENTAUR NEGATIVE (NEGATIVE)
[2018-07-27 12:34] LABS: HEPATITIS B CORE ANTIBODY IGM NEGATIVE (NEGATIVE)
[2018-07-27 12:36] LABS: HEPATITIS A ANTIBODY IGM NEGATIVE (NEGATIVE)
[2018-07-27 12:43] LABS: HEPATITIS C VIRUS ABY INDEX > 11.0 INDEX (<0.8)
[2018-07-27 18:57] LABS: TYPE AND SCREEN 1
[2018-07-27] MEDS: ONDANSETRON 4 MG TAB (S0181) PO (21:14)
[2018-07-27] MEDS: QUEtiapine FUMARATE 200 MG TAB PO (21:14)
[2018-07-27] MEDS: ACETAMINOPHEN TAB 650MG DOSE (2X325MG) PO (22:54)
[2018-07-28] MEDS: methylPREDNISolone INJ 125 MG/2 ML VIAL (J2930) IV ×3 (02:00→17:58)
[2018-07-28] MEDS: HEPARIN SOD (PORCINE) 5000 UNITS/ML VIAL SC ×3 (05:11→21:15)
[2018-07-28] MEDS: FUROSEMIDE 40 MG/4 ML VIAL (J1940) IV (06:00)
[2018-07-28 06:16] LABS: BASO % 0.2 % (0.0-1.0); EOS # 0.1 10^3/uL (0.0-0.50); EOS % 1.4 % (0.0-3.0); HEMATOCRIT 38.5 % (36.0-47.0); IMMATURE GRANULOCYTE % 0.6 % (0-3.0); LYMPH # 0.6 10^3/uL (1.5-4.5); MEAN CORPUSCULAR HEMOGLOBIN 25.7 pg (27.0-33.0); MEAN CORPUSCULAR HGB CONC 31.2 g/dl (32.0-36.5); MEAN CORPUSCULAR VOLUME 82.4 fl (80.0-96.0); MONO # 0.4 10^3/uL (0.0-0.8); MONO % 7.5 % (0.0-5.0); NEUTROPHILS % 79.3 % (36.0-66.0); PLATELET COUNT, AUTOMATED 370 10^3/uL (150-450); RED BLOOD COUNT 4.67 10^6/uL (4.00-5.40); WHITE BLOOD COUNT 5.1 10^3/uL (4.0-10.0)
[2018-07-28 06:37] LABS: ALBUMIN 1.4 GM/DL (3.2-5.2); ALBUMIN/GLOBULIN RATIO 0.61 (1.00-1.93); ALKALINE PHOSPHATASE 44 U/L (45-117); ALT/SGPT 19 U/L (12-78); ANION GAP 8 MEQ/L (8-16); AST/SGOT 16 U/L (7-37); BILIRUBIN,TOTAL < 0.1 MG/DL (0.2-1.0); BLOOD UREA NITROGEN 20 MG/DL (7-18); CALCIUM LEVEL 7.1 MG/DL (8.5-10.1); CARBON DIOXIDE LEVEL 29 MEQ/L (21-32); CHLORIDE LEVEL 113 MEQ/L (98-107); CREATININE FOR GFR 0.48 MG/DL (0.55-1.30); GLOMERULAR FILTRATION RATE > 60.0 (>60); GLUCOSE, FASTING 90 MG/DL (70-100); POTASSIUM SERUM 3.7 MEQ/L (3.5-5.1); SODIUM LEVEL 150 MEQ/L (136-145); TOTAL PROTEIN 3.7 GM/DL (6.4-8.2)
[2018-07-28 06:45] LABS: TYPE AND SCREEN 1
[2018-07-28] MEDS: SLF 3 ML SYR IV ×3 (07:42→21:15)
[2018-07-28] MEDS: clonazePAM 1 MG TAB PO ×3 (09:00→21:14)
[2018-07-28] MEDS: BUPRENORPHINE/NALOXONE 2-0.5MG SUBLINGUAL TABLET(SUBOXONE) SL ×3 (09:18→21:14)
[2018-07-28] MEDS: PREGABALIN 100 MG CAP (LYRICA) PO ×3 (09:18→21:14)
[2018-07-28] MEDS: GABAPENTIN 400 MG CAP PO ×3 (09:19→21:14)
[2018-07-28] MEDS: FUROSEMIDE 20 MG/2 ML VIAL (J1940) IV ×2 (09:19→21:15)
[2018-07-28] MEDS: MIRALAX *UNIT DOSE* 17GM PACKET PO (13:47)
[2018-07-28 18:14] LABS: TYPE AND SCREEN 1
[2018-07-28] MEDS: QUEtiapine FUMARATE 200 MG TAB PO (21:14)
[2018-07-28] MEDS: ACETAMINOPHEN TAB 650MG DOSE (2X325MG) PO (21:20)
[2018-07-29] MEDS: ONDANSETRON 4 MG TAB (S0181) PO ×2 (00:08→20:12)
[2018-07-29] MEDS: methylPREDNISolone INJ 125 MG/2 ML VIAL (J2930) IV ×2 (02:05→10:19)
[2018-07-29] MEDS: HEPARIN SOD (PORCINE) 5000 UNITS/ML VIAL SC ×3 (05:27→22:00)
[2018-07-29 05:46] LABS: BASO % 0.1 % (0.0-1.0); HEMATOCRIT 39.2 % (36.0-47.0); HEMOGLOBIN 12.4 g/dl (12.0-15.5); IMMATURE GRANULOCYTE % 0.6 % (0-3.0); LYMPH # 0.4 10^3/uL (1.5-4.5); LYMPH % 4.7 % (24.0-44.0); MEAN CORPUSCULAR HEMOGLOBIN 25.6 pg (27.0-33.0); MEAN CORPUSCULAR HGB CONC 31.6 g/dl (32.0-36.5); MONO # 0.2 10^3/uL (0.0-0.8); MONO % 2.7 % (0.0-5.0); NEUTROPHILS # 8.2 10^3/uL (1.8-7.7); NEUTROPHILS % 91.9 % (36.0-66.0); PLATELET COUNT, AUTOMATED 458 10^3/uL (150-450); RED BLOOD COUNT 4.84 10^6/uL (4.00-5.40); RED CELL DISTRIBUTION WIDTH 17.7 % (11.5-14.5); WHITE BLOOD COUNT 8.9 10^3/uL (4.0-10.0)
[2018-07-29 05:59] LABS: TYPE AND SCREEN 1
[2018-07-29 06:01] LABS: ALBUMIN 1.8 GM/DL (3.2-5.2); ALBUMIN/GLOBULIN RATIO 0.72 (1.00-1.93); ALKALINE PHOSPHATASE 43 U/L (45-117); ALT/SGPT 28 U/L (12-78); ANION GAP 4 MEQ/L (8-16); AST/SGOT 21 U/L (7-37); BILIRUBIN,TOTAL < 0.1 MG/DL (0.2-1.0); BLOOD UREA NITROGEN 23 MG/DL (7-18); CALCIUM LEVEL 7.3 MG/DL (8.5-10.1); CARBON DIOXIDE LEVEL 34 MEQ/L (21-32); CHLORIDE LEVEL 105 MEQ/L (98-107); CREATININE FOR GFR 0.47 MG/DL (0.55-1.30); GLOMERULAR FILTRATION RATE > 60.0 (>60); GLUCOSE, FASTING 121 MG/DL (70-100); MAGNESIUM LEVEL 2.1 MG/DL (1.8-2.4); POTASSIUM SERUM 4.5 MEQ/L (3.5-5.1); SODIUM LEVEL 143 MEQ/L (136-145); TOTAL PROTEIN 4.3 GM/DL (6.4-8.2)
[2018-07-29] MEDS: clonazePAM 1 MG TAB PO ×3 (08:33→20:11)
[2018-07-29] MEDS: GABAPENTIN 400 MG CAP PO ×3 (08:34→20:09)
[2018-07-29] MEDS: PREGABALIN 100 MG CAP (LYRICA) PO ×3 (08:34→20:10)
[2018-07-29] MEDS: BUPRENORPHINE/NALOXONE 2-0.5MG SUBLINGUAL TABLET(SUBOXONE) SL ×3 (08:34→20:10)
[2018-07-29] MEDS: MIRALAX *UNIT DOSE* 17GM PACKET PO (08:41)
[2018-07-29] MEDS: FUROSEMIDE 100 MG/10 ML VIAL (J1940) IV ×2 (08:44→17:00)
[2018-07-29] MEDS: SLF 3 ML SYR IV ×3 (08:45→22:33)
[2018-07-29 19:26] LABS: TYPE AND SCREEN 1
[2018-07-29] MEDS: QUEtiapine FUMARATE 200 MG TAB PO (20:10)
[2018-07-29] MEDS: ACETAMINOPHEN TAB 650MG DOSE (2X325MG) PO (20:11)
[2018-07-29] MEDS: FUROSEMIDE 40 MG/4 ML VIAL (J1940) IV (22:33)
[2018-07-29] MEDS ORDERED: ALBUTEROL SULFATE 2.5 MG/0.5 ML INH NEB SOLN NEB (23:00)
[2018-07-29] MEDS: METOCLOPRAMIDE INJ 10MG/2ML VIAL (J2765) IV (23:06)
[2018-07-30 05:23] LABS: BEDSIDE GLUCOSE 102 MG/DL (70-105)
[2018-07-30] MEDS: NS 250 ML IV ×2 (05:35→06:40)
[2018-07-30] MEDS: HEPARIN SOD (PORCINE) 5000 UNITS/ML VIAL SC ×3 (05:45→22:00)
[2018-07-30] MEDS: SLF 3 ML SYR IV ×3 (05:45→22:00)
[2018-07-30] MEDS: ONDANSETRON 4 MG TAB (S0181) PO ×3 (06:16→22:06)
[2018-07-30 06:36] LABS: ALBUMIN 2.3 GM/DL (3.2-5.2); ALBUMIN/GLOBULIN RATIO 0.77 (1.00-1.93); ALKALINE PHOSPHATASE 56 U/L (45-117); ALT/SGPT 61 U/L (12-78); ANION GAP 7 MEQ/L (8-16); AST/SGOT 46 U/L (7-37); BILIRUBIN,TOTAL 0.2 MG/DL (0.2-1.0); BLOOD UREA NITROGEN 29 MG/DL (7-18); CALCIUM LEVEL 7.6 MG/DL (8.5-10.1); CARBON DIOXIDE LEVEL 27 MEQ/L (21-32); CHLORIDE LEVEL 107 MEQ/L (98-107); CREATININE FOR GFR 0.62 MG/DL (0.55-1.30); GLOMERULAR FILTRATION RATE > 60.0 (>60); GLUCOSE, FASTING 84 MG/DL (70-100); MAGNESIUM LEVEL 2.1 MG/DL (1.8-2.4); POTASSIUM SERUM 4.3 MEQ/L (3.5-5.1); SODIUM LEVEL 141 MEQ/L (136-145); TOTAL PROTEIN 5.3 GM/DL (6.4-8.2)
[2018-07-30] MEDS: BUPRENORPHINE/NALOXONE 2-0.5MG SUBLINGUAL TABLET(SUBOXONE) SL ×4 (08:36→22:05)
[2018-07-30] MEDS: clonazePAM 1 MG TAB PO ×3 (08:37→22:06)
[2018-07-30] MEDS: GABAPENTIN 400 MG CAP PO ×3 (08:37→22:07)
[2018-07-30] MEDS: PREGABALIN 100 MG CAP (LYRICA) PO ×3 (08:37→22:06)
[2018-07-30 08:43] LABS: TYPE AND SCREEN 1
[2018-07-30 09:18] LABS: BASO % 0.2 % (0.0-1.0); EOS # 0.1 10^3/uL (0.0-0.50); EOS % 0.8 % (0.0-3.0); HEMATOCRIT 46.5 % (36.0-47.0); IMMATURE GRANULOCYTE % 0.4 % (0-3.0); LYMPH # 0.6 10^3/uL (1.5-4.5); LYMPH % 6.4 % (24.0-44.0); MEAN CORPUSCULAR HGB CONC 31.8 g/dl (32.0-36.5); MEAN CORPUSCULAR VOLUME 81.7 fl (80.0-96.0); MONO # 0.7 10^3/uL (0.0-0.8); NEUTROPHILS # 8.6 10^3/uL (1.8-7.7); NEUTROPHILS % 85.2 % (36.0-66.0); PLATELET COUNT, AUTOMATED 327 10^3/uL (150-450); RED BLOOD COUNT 5.69 10^6/uL (4.00-5.40)
[2018-07-30 09:28] LABS: HEMOGLOBIN 14.8 g/dl (12.0-15.5)
[2018-07-30] MEDS: ACETAMINOPHEN TAB 650MG DOSE (2X325MG) PO (16:02)
[2018-07-30] MEDS: FUROSEMIDE 20 MG/2 ML VIAL (J1940) IV (16:04)
[2018-07-30 18:11] LABS: TYPE AND SCREEN 1
[2018-07-30] MEDS: QUEtiapine FUMARATE 200 MG TAB PO (22:07)
[2018-07-31] MEDS: HEPARIN SOD (PORCINE) 5000 UNITS/ML VIAL SC ×5 (05:14→22:00)
[2018-07-31 05:41] LABS: BASO % 0.1 % (0.0-1.0); EOS # 0.1 10^3/uL (0.0-0.50); EOS % 1.8 % (0.0-3.0); HEMATOCRIT 41.4 % (36.0-47.0); HEMOGLOBIN 13.4 g/dl (12.0-15.5); IMMATURE GRANULOCYTE % 0.5 % (0-3.0); LYMPH # 0.7 10^3/uL (1.5-4.5); LYMPH % 8.4 % (24.0-44.0); MEAN CORPUSCULAR HEMOGLOBIN 25.9 pg (27.0-33.0); MEAN CORPUSCULAR HGB CONC 32.4 g/dl (32.0-36.5); MEAN CORPUSCULAR VOLUME 79.9 fl (80.0-96.0); MONO # 0.6 10^3/uL (0.0-0.8); MONO % 7.7 % (0.0-5.0); NEUTROPHILS # 6.3 10^3/uL (1.8-7.7); NEUTROPHILS % 81.5 % (36.0-66.0); PLATELET COUNT, AUTOMATED 360 10^3/uL (150-450); RED BLOOD COUNT 5.18 10^6/uL (4.00-5.40); RED CELL DISTRIBUTION WIDTH 18.5 % (11.5-14.5); WHITE BLOOD COUNT 7.8 10^3/uL (4.0-10.0)
[2018-07-31 05:54] LABS: TYPE AND SCREEN 1
[2018-07-31] MEDS: SLF 3 ML SYR IV ×3 (06:00→20:45)
[2018-07-31 06:09] LABS: ALBUMIN 2.1 GM/DL (3.2-5.2); ALBUMIN/GLOBULIN RATIO 0.88 (1.00-1.93); ALKALINE PHOSPHATASE 49 U/L (45-117); ALT/SGPT 50 U/L (12-78); ANION GAP 6 MEQ/L (8-16); AST/SGOT 31 U/L (7-37); BILIRUBIN,TOTAL 0.2 MG/DL (0.2-1.0); BLOOD UREA NITROGEN 18 MG/DL (7-18); CARBON DIOXIDE LEVEL 25 MEQ/L (21-32); CHLORIDE LEVEL 110 MEQ/L (98-107); CREATININE FOR GFR 0.56 MG/DL (0.55-1.30); GLOMERULAR FILTRATION RATE > 60.0 (>60); GLUCOSE, FASTING 73 MG/DL (70-100); MAGNESIUM LEVEL 1.7 MG/DL (1.8-2.4); POTASSIUM SERUM 3.5 MEQ/L (3.5-5.1); SODIUM LEVEL 141 MEQ/L (136-145); TOTAL PROTEIN 4.5 GM/DL (6.4-8.2)
[2018-07-31] MEDS: FUROSEMIDE 20 MG/2 ML VIAL (J1940) IV ×2 (08:00→20:00)
[2018-07-31] MEDS: BUPRENORPHINE/NALOXONE 2-0.5MG SUBLINGUAL TABLET(SUBOXONE) SL ×3 (08:28→20:44)
[2018-07-31] MEDS: clonazePAM 1 MG TAB PO ×3 (08:29→20:45)
[2018-07-31] MEDS: ONDANSETRON 4 MG TAB (S0181) PO ×3 (08:29→20:47)
[2018-07-31] MEDS: GABAPENTIN 400 MG CAP PO ×3 (08:29→20:44)
[2018-07-31] MEDS: PREGABALIN 100 MG CAP (LYRICA) PO ×3 (08:29→20:45)
[2018-07-31] MEDS: ACETAMINOPHEN TAB 650MG DOSE (2X325MG) PO ×2 (08:30→17:28)
[2018-07-31 14:09] LABS: HCV RNA NAA QUALITATIVE Positive (Negative)
[2018-07-31 17:53] LABS: TYPE AND SCREEN 1
[2018-07-31] MEDS: QUEtiapine FUMARATE 200 MG TAB PO (20:44)
[2018-08-01 00:07] LABS: ALPHA 2-MACROGLOBULIN 79 mg/dL (110-276); ALT 11 IU/L (0-40); APOLIPOPROTEIN A-1 68 mg/dL (116-209); FIBROSIS SCORE 0.01 (0.00-0.21); GGT 4 IU/L (0-60); HAPTOGLOBIN 190 mg/dL (34-200); HEPATITIS C QUANTITATION 343230 IU/mL (.); HEPATITIS C VIRUS GENOTYPE 3 (.); NECROINFLAM SCORE 0.02 (0.00-0.17); NECROINFLAMM GRADE A0-No activity (.); TOTAL BILIRUBIN <0.1 mg/dL (0.0-1.2)
[2018-08-01 05:31] LABS: BASO % 0.2 % (0.0-1.0); EOS # 0.1 10^3/uL (0.0-0.50); EOS % 1.2 % (0.0-3.0); HEMATOCRIT 37.5 % (36.0-47.0); HEMOGLOBIN 12.2 g/dl (12.0-15.5); IMMATURE GRANULOCYTE % 0.5 % (0-3.0); LYMPH # 0.6 10^3/uL (1.5-4.5); LYMPH % 8.5 % (24.0-44.0); MEAN CORPUSCULAR HEMOGLOBIN 25.6 pg (27.0-33.0); MEAN CORPUSCULAR HGB CONC 32.5 g/dl (32.0-36.5); MEAN CORPUSCULAR VOLUME 78.8 fl (80.0-96.0); MONO # 0.5 10^3/uL (0.0-0.8); NEUTROPHILS # 5.3 10^3/uL (1.8-7.7); NEUTROPHILS % 81.6 % (36.0-66.0); PLATELET COUNT, AUTOMATED 277 10^3/uL (150-450); RED BLOOD COUNT 4.76 10^6/uL (4.00-5.40); WHITE BLOOD COUNT 6.5 10^3/uL (4.0-10.0)
[2018-08-01 05:46] LABS: ALBUMIN 1.8 GM/DL (3.2-5.2); ALKALINE PHOSPHATASE 45 U/L (45-117); ALT/SGPT 34 U/L (12-78); ANION GAP 6 MEQ/L (8-16); AST/SGOT 19 U/L (7-37); BILIRUBIN,TOTAL 0.1 MG/DL (0.2-1.0); BLOOD UREA NITROGEN 15 MG/DL (7-18); CALCIUM LEVEL 7.1 MG/DL (8.5-10.1); CARBON DIOXIDE LEVEL 27 MEQ/L (21-32); CHLORIDE LEVEL 108 MEQ/L (98-107); CREATININE FOR GFR 0.43 MG/DL (0.55-1.30); GLOMERULAR FILTRATION RATE > 60.0 (>60); GLUCOSE, FASTING 102 MG/DL (70-100); MAGNESIUM LEVEL 1.7 MG/DL (1.8-2.4); POTASSIUM SERUM 3.3 MEQ/L (3.5-5.1); SODIUM LEVEL 141 MEQ/L (136-145); TOTAL PROTEIN 3.8 GM/DL (6.4-8.2)
[2018-08-01] MEDS: SLF 3 ML SYR IV ×3 (06:00→20:50)
[2018-08-01] MEDS: FUROSEMIDE 20 MG/2 ML VIAL (J1940) IV ×2 (08:00→13:28)
[2018-08-01] MEDS: GABAPENTIN 400 MG CAP PO ×3 (08:56→20:49)
[2018-08-01] MEDS: MAG SULF 1GM/100ML (MAG RUN) 1 GM in APPROPRIATE DILUENT 1 EA IV ×2 (08:57→13:29)
[2018-08-01] MEDS: POTASSIUM CHLORIDE 10 MEQ SR TABLET PO (08:57)
[2018-08-01] MEDS: BUPRENORPHINE/NALOXONE 2-0.5MG SUBLINGUAL TABLET(SUBOXONE) SL ×3 (08:58→20:49)
[2018-08-01] MEDS: clonazePAM 1 MG TAB PO ×3 (08:58→20:49)
[2018-08-01] MEDS: PREGABALIN 100 MG CAP (LYRICA) PO ×3 (08:58→20:49)
[2018-08-01] MEDS: ACETAMINOPHEN TAB 650MG DOSE (2X325MG) PO (09:01)
[2018-08-01] MEDS: ONDANSETRON 4 MG TAB (S0181) PO (09:01)
[2018-08-01 10:36] LABS: TYPE AND SCREEN 1
[2018-08-01] MEDS ORDERED: MAGNESIUM SULFATE 1 GM/100 ML D5W BAG (10MG/ML) (J3475) As Ordered (13:24)
[2018-08-01] MEDS: HEPARIN SOD (PORCINE) 5000 UNITS/ML VIAL SC ×2 (13:29→20:49)
[2018-08-01] MEDS ORDERED: MIDAZOLAM INJ 2 MG/2 ML VIAL (J2250) As Ordered ×3 (20:09)
[2018-08-01] MEDS ORDERED: FLUMAZENIL 0.5 MG/5 ML VIAL As Ordered (20:09)
[2018-08-01] MEDS ORDERED: LIDOCAINE 1% MDV 20ML VIAL As Ordered (20:10)
[2018-08-01] MEDS: QUEtiapine FUMARATE 200 MG TAB PO (20:49)
[2018-08-01 21:27] LABS: TYPE AND SCREEN 1
[2018-08-02] MEDS: FUROSEMIDE 20 MG/2 ML VIAL (J1940) IV ×3 (00:17→20:17)
[2018-08-02] MEDS: HEPARIN SOD (PORCINE) 5000 UNITS/ML VIAL SC ×3 (05:57→21:09)
[2018-08-02] MEDS: SLF 3 ML SYR IV ×3 (05:57→21:09)
[2018-08-02 06:26] LABS: BASO % 0.2 % (0.0-1.0); EOS # 0.1 10^3/uL (0.0-0.50); EOS % 1.2 % (0.0-3.0); HEMATOCRIT 34.9 % (36.0-47.0); HEMOGLOBIN 11.1 g/dl (12.0-15.5); IMMATURE GRANULOCYTE % 0.7 % (0-3.0); LYMPH # 0.5 10^3/uL (1.5-4.5); LYMPH % 11.4 % (24.0-44.0); MEAN CORPUSCULAR HEMOGLOBIN 25.7 pg (27.0-33.0); MEAN CORPUSCULAR HGB CONC 31.8 g/dl (32.0-36.5); MEAN CORPUSCULAR VOLUME 80.8 fl (80.0-96.0); MONO # 0.4 10^3/uL (0.0-0.8); MONO % 9.6 % (0.0-5.0); NEUTROPHILS # 3.1 10^3/uL (1.8-7.7); NEUTROPHILS % 76.9 % (36.0-66.0); PLATELET COUNT, AUTOMATED 244 10^3/uL (150-450); RED BLOOD COUNT 4.32 10^6/uL (4.00-5.40); RED CELL DISTRIBUTION WIDTH 18.1 % (11.5-14.5); WHITE BLOOD COUNT 4.1 10^3/uL (4.0-10.0)
[2018-08-02 06:31] LABS: ALBUMIN 1.9 GM/DL (3.2-5.2); ALKALINE PHOSPHATASE 48 U/L (45-117); ALT/SGPT 26 U/L (12-78); ANION GAP 7 MEQ/L (8-16); AST/SGOT 14 U/L (7-37); BILIRUBIN,TOTAL 0.1 MG/DL (0.2-1.0); BLOOD UREA NITROGEN 13 MG/DL (7-18); CALCIUM LEVEL 7.1 MG/DL (8.5-10.1); CARBON DIOXIDE LEVEL 30 MEQ/L (21-32); CHLORIDE LEVEL 106 MEQ/L (98-107); GLOMERULAR FILTRATION RATE > 60.0 (>60); GLUCOSE, FASTING 77 MG/DL (70-100); MAGNESIUM LEVEL 2.2 MG/DL (1.8-2.4); POTASSIUM SERUM 3.5 MEQ/L (3.5-5.1); SODIUM LEVEL 143 MEQ/L (136-145)
[2018-08-02] MEDS: BUPRENORPHINE/NALOXONE 2-0.5MG SUBLINGUAL TABLET(SUBOXONE) SL ×3 (09:45→20:18)
[2018-08-02] MEDS: GABAPENTIN 400 MG CAP PO ×3 (09:46→20:19)
[2018-08-02] MEDS: clonazePAM 1 MG TAB PO ×3 (09:46→20:20)
[2018-08-02] MEDS: PREGABALIN 100 MG CAP (LYRICA) PO ×3 (09:46→20:20)
[2018-08-02] MEDS: QUEtiapine FUMARATE 200 MG TAB PO (20:17)
[2018-08-02] MEDS: ACETAMINOPHEN TAB 650MG DOSE (2X325MG) PO (20:19)
[2018-08-02] MEDS: ONDANSETRON 4 MG TAB (S0181) PO (20:19)
[2018-08-03] MEDS: HEPARIN SOD (PORCINE) 5000 UNITS/ML VIAL SC ×2 (05:48→13:56)
[2018-08-03] MEDS: SLF 3 ML SYR IV (05:51)
[2018-08-03] MEDS: FUROSEMIDE 20 MG/2 ML VIAL (J1940) IV (10:06)
[2018-08-03] MEDS: BUPRENORPHINE/NALOXONE 2-0.5MG SUBLINGUAL TABLET(SUBOXONE) SL (10:10)
[2018-08-03] MEDS: PREGABALIN 100 MG CAP (LYRICA) PO (10:11)
[2018-08-03] MEDS: GABAPENTIN 400 MG CAP PO (10:11)
[2018-08-03] MEDS: clonazePAM 1 MG TAB PO (10:11)
== END 2018-08-03 15:40 | disposition home or self-care (01) | DRG 607 ==
LOC: M ED INP 07-26 01:12 → M PCU 07-26 01:45 → M ED 17:04
DX: I89.0 Lymphedema, not elsewhere classified (principal); R18.8 Other ascites; K90.49 Malabsorption due to intolerance, not elsewhere classified; J45.909 Unspecified asthma, uncomplicated; F41.9 Anxiety disorder, unspecified; F32.9 Major depressive disorder, single episode, unspecified; B18.2 Chronic viral hepatitis C; F43.10 Post-traumatic stress disorder, unspecified; Z79.899 Other long term (current) drug therapy; Z88.0 Allergy status to penicillin; Z88.8 Allergy status to other drugs, medicaments and biological substances; F17.210 Nicotine dependence, cigarettes, uncomplicated

== ENCOUNTER → 2018-11-30 | Outpatient (REF) | payer MEDICARE, MEDICAID ==
[~2018-11-30] MED LIST changes: -CLON1TAB PO; +CLON1TAB8 PO; -DOXY-278 PO; +DOXY-350 PO; +FLAG500T PO; -GABA-283 PO; +GABA-845 PO; +GABA800T4 PO; +LASI20TA3 PO; -LASI40TA PO; +LASI40TA9 PO; +SERO400T PO; +SUBO8MIS; -ZOFR20TA PO; +ZOFR4TAB14 PO; +ZOFR4TAB16 PO
== END ==
LOC: M LABDRWAD 12:34
PROVIDERS: ATTEND Family Medicine Addiction Medicine
DX: R30.0 Dysuria (principal)

== ENCOUNTER 2019-02-18 18:45 | Inpatient (IN) | payer MEDICARE, MEDICAID ==
[~2019-02-18] VITALS: Ht 172.7 cm; Wt 65.1 kg
[~2019-02-18 18:45] MED LIST changes: -/ADVA50050 INH; +ADVA1AER2 INH
[2019-02-18] MEDS ORDERED: ONDANSETRON 4MG/2ML VIAL (J2405) IV ONE (20:30)
[2019-02-18] MEDS ORDERED: IPRATROPIUM 0.5MG/ALBUTEROL 2.5MG INH SOL UD 3ML (DUONEB)(J7620) NEB PRN (20:45)
[2019-02-18 20:57] LABS: BASO % 0.3 % (0.0-1.0); EOS # 0.1 10^3/uL (0.0-0.50); EOS % 1.5 % (0.0-3.0); HEMATOCRIT 46.4 % (36.0-47.0); HEMOGLOBIN 14.2 g/dl (12.0-15.5); LYMPH # 0.6 10^3/uL (1.5-4.5); LYMPH % 16.5 % (24.0-44.0); MEAN CORPUSCULAR HEMOGLOBIN 25.3 pg (27.0-33.0); MEAN CORPUSCULAR HGB CONC 30.6 g/dl (32.0-36.5); MEAN CORPUSCULAR VOLUME 82.6 fl (80.0-96.0); MONO # 0.3 10^3/uL (0.0-0.8); MONO % 8.5 % (0.0-5.0); NEUTROPHILS # 2.8 10^3/uL (1.8-7.7); NEUTROPHILS % 72.7 % (36.0-66.0); PLATELET COUNT, AUTOMATED 377 10^3/uL (150-450); RED BLOOD COUNT 5.62 10^6/uL (4.00-5.40); WHITE BLOOD COUNT 3.9 10^3/uL (4.0-10.0)
[2019-02-18 21:02] LABS: APPEARANCE, URINE HAZY (CLEAR); BACTERIA, URINE AUTO NEGATIVE (NEGATIVE); BILIRUBIN, URINE AUTO NEGATIVE (NEGATIVE); BLOOD, URINE BLOOD NEGATIVE (NEGATIVE); COLOR, URINE YELLOW (YELLOW); GLUCOSE, URINE (UA) AUTO NEGATIVE (NEGATIVE); KETONE, URINE AUTO NEGATIVE (NEGATIVE); LEUKOCYTE ESTERASE, URINE AUTO NEGATIVE (NEGATIVE); MUCUS, URINE SMALL (NEGATIVE); NITRITE, URINE AUTO NEGATIVE (NEGATIVE); PROTEIN, URINE AUTO NEGATIVE (NEGATIVE); RBC, URINE AUTO 1 /HPF (0-3); SPECIFIC GRAVITY URINE AUTO 1.021 (1.002-1.035); SQUAMOUS EPITHELIAL CELL UR AU 2 /HPF (0-6); WBC, URINE AUTO 1 /HPF (0-3)
[2019-02-18 21:17] LABS: ALT/SGPT 19 U/L (12-78); BILIRUBIN,DIRECT < 0.1 MG/DL (0.0-0.2); BILIRUBIN,TOTAL 0.1 MG/DL (0.2-1.0); BLOOD UREA NITROGEN 13 MG/DL (7-18); CALCIUM LEVEL 7.8 MG/DL (8.5-10.1); CARBON DIOXIDE LEVEL 31 MEQ/L (21-32); CHLORIDE LEVEL 111 MEQ/L (98-107); CREATININE FOR GFR 0.44 MG/DL (0.55-1.30); GLOMERULAR FILTRATION RATE > 60.0 (>60); GLUCOSE, FASTING 73 MG/DL (70-100); LIPASE 85 U/L (73-393); POTASSIUM SERUM 4.1 MEQ/L (3.5-5.1); SODIUM LEVEL 146 MEQ/L (136-145); TOTAL PROTEIN 4.8 GM/DL (6.4-8.2)
--- NOTE | 2019-02-18 21:24 | REP ---
Clinical: Acute chest pain . Comparison: 12/12/2017 . Technique: PA and lateral. Findings: The mediastinum and cardiac silhouette are normal. The lung chavira are clear and without acute consolidation, effusion, or pneumothorax. The skeletal structures are intact and normal. Impression: 1. No acute cardiopulmonary process. Electronically Signed by Larry Payton MD 02/18/2019 09:15 P
[2019-02-18] MEDS ORDERED: ISOVUE-370 76% 125ML VIAL (Q9967 PER ML) As Ordered ONE (23:43)
[2019-02-19] VITALS (25 sets, daily range): BP systolic 81–99; BP diastolic 50–68; O2SAT 84–99
[2019-02-19] MEDS ORDERED: SERO400T PO (00:35)
[2019-02-19] MEDS ORDERED: CLON1TAB8 PO (00:35)
[2019-02-19] MEDS ORDERED: SUBO8MIS SL (00:35)
--- NOTE | 2019-02-19 01:26 | REPVR ---
EXAM: CT Abdomen and Pelvis With Contrast EXAM DATE/TIME: 02/18/2019 10:48 PM CLINICAL HISTORY: 34 years old, female; Abdominal pain; Generalized TECHNIQUE: Imaging protocol: Axial computed tomography images of the abdomen and pelvis with intravenous contrast. Coronal and sagittal reformatted images were created and reviewed. Radiation optimization: All CT scans at this facility use at least one of these dose optimization techniques: automated exposure control; mA and/or kV adjustment per patient size (includes targeted exams where dose is matched to clinical indication); or iterative reconstruction. Contrast material: iso Contrast volume: 100 ml Contrast route: ac COMPARISON: CT ABD PELVIS W/O CONTRAST 08/01/2018 2:59:30 PM GALLBLADDER US 08/01/2018 8:28:[address] ABD/PEL W/IV CONTRAST ONLY 07/25/2018 7:26 PM FINDINGS: Lower thorax: There is a small region of nodular opacification in the posterior inferior aspect of the right lower lobe, which has decreased in size compared to the prior CT abdomen and pelvis on 08/01/2018 and may represent a region of atelectasis. ABDOMEN: Liver: The liver is unremarkable. No liver lesion is seen. The contour of the liver is smooth. No hepatomegaly is noted. Gallbladder and bile ducts: No calcified gallstones are seen. No gallbladder wall thickening, pericholecystic fluid, or pericholecystic inflammatory changes are identified. No dilation of the intrahepatic or extrahepatic bile ducts is noted. Pancreas: Normal. No ductal dilation. Spleen: The spleen is heterogeneous in appearance, which is likely secondary to the arterial timing of the contrast bolus. No splenomegaly. Adrenals: Normal. No mass. Kidneys and ureters: There is mild scarring of the inferior pole cortex of the right kidney. The kidneys are otherwise unremarkable. No stones are noted in the kidneys or ureters. There is no hydronephrosis or hydroureter. No renal lesion is identified. Stomach and bowel: There are several dilated loops of small bowel measuring up to 3.9 cm in diameter without an obvious transition point. There is also thickening of the wall of several loops of jejunum and ileum with associated mesenteric edema. Appendix: The retrocecal appendix is normal. There is no evidence for appendicitis. PELVIS: Bladder: The distended urinary bladder is normal in appearance. No stones or masses are seen in the bladder. The contour of the bladder is normal. Reproductive: The uterus is anteverted. The ovaries are unremarkable. Incidental note is made of a 2 cm follicular cyst in the left ovary. ABDOMEN and PELVIS: Intraperitoneal space: There is a small amount of ascites in the abdomen and pelvis, which has decreased compared to the prior CT scan on 08/01/2018. There is no intraperitoneal free air or intra-abdominal abscess. Bones/joints: The imaged bony structures are intact. There is no suspicious osteolytic or osteoblastic lesion. There are several synovial herniation pits in the anterior aspect of the right femoral head neck junction. Soft tissues: There is edema in the subcutaneous tissues in the anterior abdominal wall, most prominent around the umbilicus. No hernia is noted. Vasculature: The abdominal aorta is normal in caliber and patent. The iliac arteries, common femoral arteries, renal arteries, celiac artery, superior mesenteric artery, and inferior mesenteric artery are patent. Lymph nodes: Normal. No enlarged lymph nodes. IMPRESSION: Persistent small bowel wall thickening with several dilated loops of small bowel with associated mesenteric edema, which was also present on the prior CT scan on 08/01/2018. Differential diagnostic considerations include an infectious small bowel enteritis, celiac sprue disease, intestinal angioedema, and intestinal lymphangiectasia. Small amount of ascites, which has decreased compared to the prior CT abdomen and pelvis on 08/01/2018. Electronically signed by: Baljit Lozano On 02/19/2019 01:25:40 AM
--- NOTE | 2019-02-19 01:26 | REPVR ---
EXAM: CT Angiography Chest With Contrast EXAM DATE/TIME: 02/18/2019 10:31 PM CLINICAL HISTORY: 34 years old, female; Hemoptysis TECHNIQUE: Imaging protocol: Axial computed tomographic angiography images of the chest with intravenous contrast using CT angiography protocol. Coronal and sagittal reformatted images were created and reviewed. 3D rendering: MIP reconstructed images were created and reviewed. Radiation optimization: All CT scans at this facility use at least one of these dose optimization techniques: automated exposure control; mA and/or kV adjustment per patient size (includes targeted exams where dose is matched to clinical indication); or iterative reconstruction. Contrast material: iso Contrast volume: 175 ml Contrast route: ac COMPARISON: CT ABD PELVIS W/O CONTRAST 08/01/2018 2:59:30 PM SR - CT Chest with contrast 07/21/2017 6:18:56 PM FINDINGS: Pulmonary arteries: No pulmonary embolism is identified. Aorta: There is no thoracic aortic aneurysm, pseudoaneurysm, penetrating atherosclerotic ulcer, or dissection. Lungs: There has been development of tree in bud opacities in the inferior lingula since the prior CT abdomen and pelvis on 08/01/2018. Ground glass opacities and tree in bud opacities are also noted in the right upper lobe. There is a small region of nodular opacification in the posterior inferior aspect of the right lower lobe, which has decreased in size compared to the prior CT abdomen and pelvis on 08/01/2018 and may represent a region of atelectasis. Pleural space: Normal. No pneumothorax. No pleural effusion. Heart: No cardiomegaly. No pericardial effusion. The ratio of the diameter of the right ventricle to the diameter of the left ventricle measures less than 1, which is within normal limits and there is no evidence for a right ventricular strain. Mediastinum: No mediastinal mass, hemorrhage, or pneumomediastinum is noted. Lymph nodes: There is subcarinal and bilateral hilar lymphadenopathy. For example, there is a 15 mm right hilar lymph node, a 15 mm left hilar lymph node, and a 14 mm subcarinal lymph node. Bones/joints: The imaged bony structures are intact. There is no suspicious osteolytic or osteoblastic lesion. Soft tissues: Unremarkable. IMPRESSION: 1. No pulmonary embolism. 2. Tree in bud opacities in the right upper lobe and inferior lingula, which may indicate an infectious bronchiolitis, aspiration bronchiolitis, or follicular bronchiolitis. 3. Subcarinal and bilateral hilar lymphadenopathy, which may be reactive in nature. Electronically signed by: Baljit Lozano On 02/19/2019 01:25:51 AM
[2019-02-19 02:21] LABS: AMPHETAMINES LEVEL URINE NEGATIVE (NEGATIVE); BARBITURATES URINE NEGATIVE (NEGATIVE); BENZODIAZEPINES URINE POSITIVE (NEGATIVE); CANNABINOIDS URINE NEGATIVE (NEGATIVE); COCAINE METABOLITE URINE NEGATIVE (NEGATIVE); METHADONE URINE NEGATIVE (NEGATIVE); OPIATES URINE NEGATIVE (NEGATIVE); PHENCYCLIDINE URINE NEGATIVE (NEGATIVE)
[2019-02-19] MEDS ORDERED: IPRATROPIUM 0.5MG/ALBUTEROL 2.5MG INH SOL UD 3ML (DUONEB)(J7620) NEB PRN (03:00)
[2019-02-19] MEDS ORDERED: methylPREDNISolone INJ 40 MG/1 ML VIAL (J2920) IV SCH (04:00)
[2019-02-19 04:11] LABS: ABG BASE EXCESS 0.2 (-2.0-2.0); ABG O2 SATURATION 92.7 % (95.0-99.0); ABG PARTIAL PRESSURE CO2 52.2 mmHg (35.0-45.0); ABG STANDARD HCO3 24.6 MEQ/L (22.0-26.0); ABG TOTAL CO2 28.6 MEQ/L (22.0-29.0); ABG pH (ARTERIAL) 7.331 UNITS (7.350-7.450)
[2019-02-19 04:38] LABS: URINE PREG TEST NEGATIVE (NEGATIVE)
[2019-02-19] MEDS ORDERED: ALBUTEROL SULFATE 2.5 MG/0.5 ML INH NEB SOLN NEB PRN (04:45)
[2019-02-19 04:56] LABS: BASO % 0.4 % (0.0-1.0); EOS # 0.1 10^3/uL (0.0-0.50); HEMATOCRIT 42.4 % (36.0-47.0); LYMPH # 0.5 10^3/uL (1.5-4.5); LYMPH % 19.9 % (24.0-44.0); MEAN CORPUSCULAR HEMOGLOBIN 25.2 pg (27.0-33.0); MEAN CORPUSCULAR HGB CONC 30.7 g/dl (32.0-36.5); MEAN CORPUSCULAR VOLUME 82.3 fl (80.0-96.0); MONO # 0.3 10^3/uL (0.0-0.8); MONO % 9.6 % (0.0-5.0); NEUTROPHILS # 1.8 10^3/uL (1.8-7.7); NEUTROPHILS % 67.1 % (36.0-66.0); PLATELET COUNT, AUTOMATED 353 10^3/uL (150-450); RED BLOOD COUNT 5.15 10^6/uL (4.00-5.40); WHITE BLOOD COUNT 2.7 10^3/uL (4.0-10.0)
[2019-02-19 05:28] LABS: BLOOD UREA NITROGEN 10 MG/DL (7-18); CALCIUM LEVEL 7.2 MG/DL (8.5-10.1); CARBON DIOXIDE LEVEL 31 MEQ/L (21-32); CHLORIDE LEVEL 110 MEQ/L (98-107); CREATININE FOR GFR 0.45 MG/DL (0.55-1.30); GLOMERULAR FILTRATION RATE > 60.0 (>60); GLUCOSE, FASTING 90 MG/DL (70-100); MAGNESIUM LEVEL 1.7 MG/DL (1.8-2.4); POTASSIUM SERUM 4.2 MEQ/L (3.5-5.1); SODIUM LEVEL 144 MEQ/L (136-145)
--- NOTE | 2019-02-19 06:30 | HPEPDOC ---
[facility] Medical History & Physical Date of Admission Feb 19, 2019 History and Physical CHIEF COMPLAINT: [DYSPNEA AND HEMOPTYSIS ] HISTORY OF PRESENT ILLNESS: This is a 34 yo female with multiple pmhx listed below, who presented to the ed for progressive sob for the past few weeks and hemoptysis for the past few days. She complained of chills and feeling of low grade fever, but no recorded fever. She denied chest pain, headache, blurry vision, dysuria, hematuria, sick contact or recent travel. ROS - all 14 point review of system is negative except for whats listed in HPI Allergies Coded Allergies: Erythromycin (Verified Allergy, Intermediate, NV,BLOATING,DIARRHEA, 02/27/13) Azithromycin (Unverified Allergy, Unknown, SWELLING, 09/15/16) Promethazine (Verified Adverse Reaction, Intermediate, NIGHT TERRORS, 02/27/13) Past Medical History Medical History 1. 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 History of Hepatitis C 3. PTSD 4. Depression 5. Anxiety 6. Asthma 7. History of IVDU Surgical History 1. History of 2. Intestinal biopsies 3. Feeding tube placement as a child Family History Significant Family History: No pertinent family hx Social History Smoker: current smoker (1P/day), cigarettes Alcohol: Denies Drugs: denies Recent Travel/Sick Contacts: Denies: Recent travel, Recent sick contacts Psychosocial History: Anxiety, Depression, PTSD Physical exam Gen: NAD, healthy appearing , generalized weakness HEENT: normocephalic, atraumatic, no discharge from ears or nose, no oropharyngeal erythema or exudate, neck is supple, no lymphadenopathy, trachea midline CVS: RRR, normal S1n S2, no murmur, rubs, or gallops, no edema, no jvd Resp: scattered wheezes and left lower - mid lung field with crackles and rhonchi Abd : soft, diffuse uncomfortable to palpation, distended, normal bowel sounds, no rebound tenderness or guarding MSK: no swelling, full range of motion, strength 5/5 Neuro: AOAx3, no confusion, no focal deficit Psych: normal mood and affect, good judgment LABORATORY DATA: See below. IMAGING: CT ABD AND PELVIS IMPRESSION: Persistent small bowel wall thickening with several dilated loops of small bowel with associated mesenteric edema, which was also present on the prior CT scan on 08/01/2018. Differential diagnostic considerations include an infectious small bowel enteritis, celiac sprue disease, intestinal angioedema, and intestinal lymphangiectasia. Small amount of ascites, which has decreased compared to the prior CT abdomen and pelvis on 08/01/2018. CTA IMPRESSION: 1. No pulmonary embolism. 2. Tree in bud opacities in the right upper lobe and inferior lingula, which may indicate an infectious bronchiolitis, aspiration bronchiolitis, or follicular bronchiolitis. 3. Subcarinal and bilateral hilar lymphadenopathy, which may be reactive in nature. MICROBIOLOGY: Please see below. ASSESSMENT AND PLAN copd//asthma exacerbation on ventimask but still desaturating to the mid 80s no sign of resp distress some wheezes and rhonchi in her lungs will start levaquin given her long history of smoking duonerb q4h prn symbicort bid methylpred 40mg q8h f/u sputum gs and cx f/u legionella ag in urine resp panel negative incentive spirometer Dr. Moore - pulm consulted - will see patient this morning hemoptysis - patient said she noticed it twice when she cough and expectorated, said it was bright red blood and she could feel it spraying in her throat-mouth - no more episodes since she she has been to the hospital - CT chest not revealing - on protonix Bladder Prolapse - patient c/o bladder prolapse and urinary incontinence -UA negative for uti -can consider surgery consult c/w home meds dvt ppx gi ppx full code, from home no svc Vital Signs Vital Signs Date Time Temp Pulse Resp B/P (MAP) Pulse Ox O2 Delivery O2 Flow Rate FiO2 02/19/19 06:00 91 96/60 (72) 90 60 02/19/19 05:32 Aerosol Mask 10.0 02/19/19 04:48 18 02/19/19 03:30 98.4 Laboratory Data Labs 24H Laboratory Tests 2 02/18/19 20:28: D-Dimer, Quantitative 692.80H 02/18/19 20:38: Immature Granulocyte % (Auto) 0.5, White Blood Count 3.9L, Red Blood Count 5.62 H, Hemoglobin 14.2, Hematocrit 46.4, Mean Corpuscular Volume 82.6, Mean Corpuscular Hemoglobin 25.3L, Mean Corpuscular Hemoglobin Concent 30.6L, Red Cell Distribution Width 20.0H, Platelet Count 377, Neutrophils (%) (Auto) 72.7H, Lymphocytes (%) (Auto) 16.5L, Monocytes (%) (Auto) 8.5H, Eosinophils (%) (Auto) 1.5, Basophils (%) (Auto) 0.3, Neutrophils # (Auto) 2.8, Lymphocytes # (Auto) 0.6L, Monocytes # (Auto) 0.3, Eosinophils # (Auto) 0.1, Basophils # (Auto) 0.0, Nucleated Red Blood Cells % (auto) 0.0, Urine Appearance HAZY, Urine Color YELLOW, Urine pH 6.0, Urine Specific [place] 1.021, Urine Protein NEGATIVE, Urine Glucose (UA) NEGATIVE, Urine Ketones NEGATIVE, Urine Urobilinogen 2.0H, Urine Bilirubin NEGATIVE, Urine Leukocyte Esterase NEGATIVE, Urine Blood NEGATIVE, Urine Nitrite NEGATIVE, Urine WBC (Auto) 1, Urine RBC (Auto) 1, Urine Hyaline Casts (Auto) 0, Urine Bacteria (Auto) NEGATIVE, Urine Squamous Epithelial Cells 2, Urine Mucus (Auto) SMALL, Urine Sperm (Auto) , Anion Gap 4L, Glomerular Filtration Rate > 60.0, Calcium Level 7.8L, Aspartate Amino Transf (AST/SGOT) 28, Alanine Aminotransferase (ALT/SGPT) 19, Alkaline Phosphatase 60, Total Bilirubin 0.1L, Direct Bilirubin < 0.1, Total Protein 4.8L, Albumin 2.0L, Albumin/Globulin Ratio 0.71L, Lipase 85 02/19/19 01:39: Urine Test NEGATIVE, Urine Amphetamines Screen NEGATIVE, Urine Benzodiazepines Screen POSITIVEH, Urine Opiates Screen NEGATIVE, Urine Methadone Screen NEGATIVE, Urine Barbiturates Screen NEGATIVE, Urine Phencyclidine Screen NEGATIVE, Urine Cocaine Metabolite Screen NEGATIVE, Urine Cannabinoids Screen NEGATIVE 02/19/19 03:50: Blood Gas Bicarbonate Standard 24.6, Arterial Blood pH 7.331L, Arterial Blood Partial Pressure CO2 52.2H, Arterial Blood Partial Pressure O2 69.0L, Arterial Blood Total CO2 28.6, Arterial Blood HCO3 27.0H, Arterial Blood Base Excess 0.2, Arterial Blood Oxygen Saturation 92.7L 02/19/19 04:39: Immature Granulocyte % (Auto) 0.0, White Blood Count 2.7L, Red Blood Count 5.15, Hemoglobin 13.0, Hematocrit 42.4, Mean Corpuscular Volume 82.3, Mean Corpuscular Hemoglobin 25.2L, Mean Corpuscular Hemoglobin Concent 30.7L, Red Cell Distribution Width 19.5H, Platelet Count 353, Neutrophils (%) (Auto) 67.1H, Lym phocytes (%) (Auto) 19.9L, Monocytes (%) (Auto) 9.6H, Eosinophils (%) (Auto) 3.0, Basophils (%) (Auto) 0.4, Neutrophils # (Auto) 1.8, Lymphocytes # (Auto) 0.5L, Monocytes # (Auto) 0.3, Eosinophils # (Auto) 0.1, Basophils # (Auto) 0.0, Nucleated Red Blood Cells % (auto) 0.0, Anion Gap 3L, Glomerular Filtration Rate > 60.0, Blood Urea Nitrogen 10, Creatinine 0.45L, Sodium Level 144, Potassium Level 4.2, Chloride Level 110H, Carbon Dioxide Level 31, Calcium Level 7.2L, Magnesium Level 1.7L, Thyroid Stimulating Hormone (TSH) 2.080 CBC/BMP Laboratory Tests 02/18/19 20:38 Red Blood Count 5.62 H, Mean Corpuscular Volume 82.6, Mean Corpuscular Hemoglobin 25.3 L, Mean Corpuscular Hemoglobin Concent 30.6 L, Red Cell Distribution Width 20.0 H, Neutrophils (%) (Auto) 72.7 H, Lymphocytes (%) (Auto) 16.5 L, Monocytes (%) (Auto) 8.5 H, Eosinophils (%) (Auto) 1.5, Basophils (%) (Auto) 0.3, Neutrophils # (Auto) 2.8, Lymphocytes # (Auto) 0.6 L, Monocytes # (Auto) 0.3, Eosinophils # (Auto) 0.1, Basophils # (Auto) 0.0 02/19/19 04:39 Red Blood Count 5.15, Mean Corpuscular Volume 82.3, Mean Corpuscular Hemoglobin 25.2 L, Mean Corpuscular Hemoglobin Concent 30.7 L, Red Cell Distribution Width 19.5 H, Neutrophils (%) (Auto) 67.1 H, Lymphocytes (%) (Auto) 19.9 L, Monocytes (%) (Auto) 9.6 H, Eosinophils (%) (Auto) 3.0, Basophils (%) (Auto) 0.4, Neutrophils # (Auto) 1.8, Lymphocytes # (Auto) 0.5 L, Monocytes # (Auto) 0.3, Eosinophils # (Auto) 0.1, Basophils # (Auto) 0.0, Calcium Level 7.2 L Microbiology Microbiology 02/19/19 Respiratory Virus Panel (PCR) (JEFFY) - Final, Complete 02/19/19 Gram Stain, Received Pending 02/19/19 Sputum Culture, Received Pending Home Medications Scheduled Buprenorphine/Naloxone (Suboxone 8-2 mg) 1 Mis Mis, 1 STRIP SL BID Clonazepam (Clonazepam) 1 Mg Tab, 1 MG PO TID Gabapentin (Gabapentin) 800 Mg Tab, 800 MG PO TID Pregabalin (Lyrica) 300 Mg Cap, 300 MG PO TID Quetiapine Fumerate (Seroquel) 400 Mg Tab, 400 MG PO QHS Allergies Coded Allergies: MS - Erythromycin (Verified Allergy, Intermediate, NV,BLOATING,DIARRHEA, 02/27/13) MS - Azithromycin (Unverified Allergy, Unknown, SWELLING, 09/15/16) MS - Promethazine (Verified Adverse Reaction, Intermediate, NIGHT TERRORS, 02/27/13) REE DEVINE MD Feb 19, 2019 06:30
--- NOTE | 2019-02-19 06:56 | ECGEPIP ---
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
[2019-02-19] MEDS ORDERED: LevoFLOXacin IV 750 MG in APPROPRIATE DILUENT 1 EA IV SCH (08:00)
[2019-02-19] MEDS: IPRATROPIUM 0.5MG/ALBUTEROL 2.5MG INH SOL UD 3ML (DUONEB)(J7620) NEB SCH ×4 (08:00→20:00)
[2019-02-19] MEDS: ENOXAPARIN 40 MG/0.4 ML SYRINGE (J1650) SC SCH (09:00)
[2019-02-19] MEDS: PANTOPRAZOLE 40MG TAB (PROTONIX) PO SCH (09:12)
[2019-02-19] MEDS: PREGABALIN 100 MG CAP (LYRICA) PO SCH ×3 (09:12→20:06)
[2019-02-19] MEDS: GABAPENTIN 400 MG CAP PO SCH ×3 (09:12→20:06)
[2019-02-19] MEDS: SYMBICORT 80/4.5MCG INHALER 6GM INH SCH ×2 (09:20→20:45)
[2019-02-19] MEDS: BUPRENORPHINE/NALOXONE 8-2MG SUBLINGUAL TABLET(SUBOXONE) SL SCH ×2 (10:37→20:06)
[2019-02-19] MEDS: methylPREDNISolone INJ 40 MG/1 ML VIAL (J2920) IV SCH ×2 (12:00→20:06)
[2019-02-19] MEDS ORDERED: ALPRAZolam 0.5 MG TAB PO PRN (15:15)
[2019-02-19] MEDS: clonazePAM 0.5 MG TAB PO PRN ×2 (15:25→23:22)
--- NOTE | 2019-02-19 16:00 | CR ---
DATE OF CONSULTATION: 02/19/2019 ATTENDING PHYSICIAN: Gilbert Saeed MD REASON FOR CONSULTATION: Hypoxemia. HISTORY OF PRESENT ILLNESS: Ms. Mendoza is a 34-year-old female who is a suboptimal historian. She gives vague and evasive answers to all questions. As near as I can put together she is a longstanding tobacco abuser. She gives a history of probable asthma. She has been on prednisone in the past for breathing issues. She does take only albuterol at home she reports. Her main issue is with short gut syndrome for which she gets admitted for albumin and Lasix. She presented yesterday with shortness of breath. She was hypoxic. She is more hypoxic at night. Currently, she is being weaned on a comfort flow and when awakened and conversant saturation goes to 97-99% on the comfort flow. When she is sleeping it is closer to 92-93%. Blood gas done at 0350 hours had a pH of 7.331, pCO2 of 52.2, pO2 of 69 and an unknown oxygen flow. ALLERGIES: Listed is AZITHROMYCIN and PROMETHAZINE. MEDICATIONS: At home: - Suboxone - clonazepam - gabapentin - Lyrica - Seroquel - albuterol PAST MEDICAL HISTORY: 1. Significant for intestinal lymphangiectasia with protein losing enteropathy. 2. History of hepatitis C. 3. Posttraumatic stress. 4. Anxiety and depression. 5. Question of asthma. 6. Prior history of IV drug use. SURGICAL HISTORY: She has multiple intestinal biopsies, previous feeding tube placement, and sections. SOCIAL HISTORY: Lives here in the [facility]. Smokes at least a half a pack or more a day. FAMILY HISTORY: Noncontributory. REVIEW OF SYSTEMS: As per the history of present illness (HPI), though: CONSTITUTIONAL: Unremarkable recently for any fevers or chills. HEENT: Unremarkable for double vision or blurry vision. PULMONARY: As per HPI. CARDIAC: Unremarkable for angina. GASTROINTESTINAL (GI): Significant for her short gut syndrome. GENITOURINARY (): Unremarkable for any recent dysuria or urgency. NEUROLOGIC: Unremarkable for seizures or strokes. ENDOCRINE: Unremarkable for diabetes or thyroid disease. MUSCULOSKELETAL: Significant for some chronic pain syndromes. IMMUNOLOGIC: Unremarkable. PSYCHIATRIC: Significant for anxiety and depression. PHYSICAL EXAMINATION: Reveals a sedate female lying in bed. She is arousable, does answer some questions of her choosing. Temperature of 98.4, blood pressure 100 systolic, Respiratory rate about 16 and unlabored, heart rate 80 with a sinus mechanism. HEENT: Shows multiple piercings. Pupils react. The sclerae are clear. Mucous membranes of nose and mouth are moist. Dentition in good repair. Trachea is in the midline. CHEST: Shows diminished but symmetric expansion. There is inspiratory and expiratory squeak and wheezes throughout. No focal adventitious breath sounds are identified. CARDIAC EXAM: Regular without any murmur or gallop. Peripheral pulses palpable. No edema. ABDOMEN: Mildly obese, I do believe there is some ascites. Scars consistent with her previous above issues. EXTREMITIES: Without cyanosis or clubbing. NEUROLOGIC: She is sedate but arousable, does answer questions, moves all extremities. PSYCHIATRIC EXAM: With somewhat of a flat affect. AVAILABLE LABORATORIES: ABG as outlined above. White blood cell count 2.7, hemoglobin 13.0, platelet count 353,000, 16% segmented neutrophils, no bands. Sodium 144, potassium 4.2, chloride 110, CO2 31, BUN 10, creatinine 0.45. CT scan is done, shows suboptimal inspiratory effort. There is some concern over some vague peripheral infiltrates, but cannot discount what appears to be maybe some bronchiolitis. IMPRESSION: 1. Hypoxemic hypercapnic respiratory failure acute on chronic. 2. Abnormal CT scan, suspect bronchiolitis. 3. Exam consistent with exacerbation of underlying airway disease. 4. Continued tobacco abuse. 5. Protein losing enteropathy. 6. History of drug abuse. 7. Multiple sedating medications. At this point, her exam clearly suggests airway edema and dysfunction. We will increase her steroids. We will augment her inspiratory efforts with EzPAP. I believe she would much benefit as well from decreasing her sedatives and getting her out of bed. Smoking cessation is paramount but I am not optimistic after discussing it with her. At this point, will proceed as outlined above. The situation is complicated not only by her smoking but her sedating medications. Further recommendations will be made in the progress records as new information becomes available.
[2019-02-19] MEDS: QUEtiapine FUMARATE 200 MG TAB PO SCH (20:06)
[2019-02-20] VITALS (14 sets, daily range): BP systolic 81–99; BP diastolic 52–63; O2SAT 92
[2019-02-20] MEDS: IPRATROPIUM 0.5MG/ALBUTEROL 2.5MG INH SOL UD 3ML (DUONEB)(J7620) NEB SCH ×7 (01:03→23:30)
[2019-02-20] MEDS: methylPREDNISolone INJ 40 MG/1 ML VIAL (J2920) IV SCH ×3 (04:36→20:07)
[2019-02-20] MEDS: SYMBICORT 80/4.5MCG INHALER 6GM INH SCH ×2 (08:52→19:55)
[2019-02-20] MEDS: ENOXAPARIN 40 MG/0.4 ML SYRINGE (J1650) SC SCH (09:00)
[2019-02-20 09:16] LABS: HEMATOCRIT 44.7 % (36.0-47.0); HEMOGLOBIN 13.9 g/dl (12.0-15.5); MEAN CORPUSCULAR HEMOGLOBIN 25.7 pg (27.0-33.0); MEAN CORPUSCULAR HGB CONC 31.1 g/dl (32.0-36.5); MEAN CORPUSCULAR VOLUME 82.6 fl (80.0-96.0); PLATELET COUNT, AUTOMATED 370 10^3/uL (150-450); RED BLOOD COUNT 5.41 10^6/uL (4.00-5.40); WHITE BLOOD COUNT 7.7 10^3/uL (4.0-10.0)
[2019-02-20] MEDS: PREGABALIN 100 MG CAP (LYRICA) PO SCH ×3 (09:26→20:08)
[2019-02-20] MEDS: clonazePAM 0.5 MG TAB PO PRN ×2 (09:26→16:09)
[2019-02-20] MEDS: PANTOPRAZOLE 40MG TAB (PROTONIX) PO SCH (09:26)
[2019-02-20] MEDS: GABAPENTIN 400 MG CAP PO SCH ×3 (09:27→20:09)
[2019-02-20] MEDS: BUPRENORPHINE/NALOXONE 8-2MG SUBLINGUAL TABLET(SUBOXONE) SL SCH ×2 (09:31→20:50)
[2019-02-20 09:36] LABS: BLOOD UREA NITROGEN 20 MG/DL (7-18); CALCIUM LEVEL 7.6 MG/DL (8.5-10.1); CARBON DIOXIDE LEVEL 29 MEQ/L (21-32); CHLORIDE LEVEL 110 MEQ/L (98-107); CREATININE FOR GFR 0.58 MG/DL (0.55-1.30); GLOMERULAR FILTRATION RATE > 60.0 (>60); GLUCOSE, FASTING 147 MG/DL (70-100); MAGNESIUM LEVEL 1.9 MG/DL (1.8-2.4); POTASSIUM SERUM 4.2 MEQ/L (3.5-5.1); SODIUM LEVEL 145 MEQ/L (136-145)
[2019-02-20] MEDS: LevoFLOXacin IV 500 MG in APPROPRIATE DILUENT 1 EA IV SCH (11:20)
[2019-02-20] MEDS: ACETAMINOPHEN TAB 650MG DOSE (2X325MG) PO PRN ×2 (12:45→20:09)
--- NOTE | 2019-02-20 13:44 | IPNPDOC ---
Subjective Date Seen The patient was seen on 02/20/19. Subjective Chief Complaint/HPI Patient seen and examined at the bedside. Reports that her respiratory status is slowly improving, and she has been down titrated to 4 L of oxygen compared to 15 L yesterday. No acute overnight events noted. Objective Physical Examination General Exam: Positive: Alert, Cooperative, No Acute Distress ENT Exam: Positive: Atraumatic, Mucous membr. moist/pink Chest Exam: Positive: Diminished Heart Exam: Positive: Rate Normal, Normal S1, Normal S2 Abdomen Exam: Positive: Soft; Negative: Tenderness Extremity Exam: Positive: Swelling (trace pitting edema in the L/E B/L); Negative: Tenderness Psych Exam: Positive: Oriented x 3 Assessment /Plan Plan/VTE VTE Prophylaxis Ordered?: Yes Plan Hypoxic, Hypercarbic Respiratory Failure 2/2 Bronchiolitis in a patient with Hx of Asthma CT Chest noted Resp panel negative IV Steroids, Levaquin, Inhaler therapy, and Serial Nebs as ordered Supplemental Oxygen therapy has been down titrated from 15L yesterday to 4L this morning Pulmonary input appreciated We will cont to monitor 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 CT Abd/Pel noted on admission with no acute changes when compared to 08/01/2018 Patient tolerating a PO diet and states that her appetite is "the best it has ever been." Chronic abdominal pain well controlled, and at baseline Patient has yet to have a BM but passing flatus--we will cont to monitor Patient encouraged to intake a high protein diet History of hepatitis C. History of IVDU. Patient has had no treatment in the past. HIV negative. Hep A and B are negative from 06/2018 admission Follow up as outpatient for treatment once medically stable Anxiety/depression Cont Seroquel. Clonazepam TID has been cut in half 2/ #1, and concerns with the patient's drowsiness History of IV drug use On Suboxone. Bladder Prolapse Patient states Hx of Bladder Prolapse She denies any c/o increased urinary frequency, incontinence, or suprapubic pain Patient counseled to f/u with Surgery as outpatient We will consider surgical consultation here if the patient becomes symptomatic History of post-traumatic stress disorder (PTSD). Deep vein thrombosis (DVT) prophylaxis Lovenox SC Dispo--pending clinical improvement. VS, I&O, 24H, Fishbone Vital Signs/I&O Vital Signs Date Time Temp Pulse Resp B/P (MAP) Pulse Ox O2 Delivery O2 Flow Rate FiO2 02/20/19 12:00 97.6 87 12 81/53 (62) 90 4.0 02/20/19 08:52 Nasal Cannula 02/19/19 08:00 98 I&O- Last 24 Hours up to 6 AM 02/20/19 06:00 Intake Total 1020 ml Output Total 400 ml Balance 620 ml Laboratory Data 24H LABS Laboratory Tests 2 02/20/19 08:51: Nucleated Red Blood Cells % (auto) 0.0, Anion Gap 6L, Glomerular Filtration Rate > 60.0, Blood Urea Nitrogen 20#H, Creatinine 0.58, Sodium Level 145, Potassium Level 4.2, Chloride Level 110H, Carbon Dioxide Level 29, Calcium Level 7.6L, Magnesium Level 1.9 CBC/BMP Laboratory Tests 02/20/19 08:51 Red Blood Count 5.41 H, Mean Corpuscular Volume 82.6, Mean Corpuscular Hemoglobin 25.7 L, Mean Corpuscular Hemoglobin Concent 31.1 L, Red Cell Distribution Width 19.8 H, Calcium Level 7.6 L Microbiology Microbiology 02/19/19 Respiratory Virus Panel (PCR) (JEFFY) - Final, Complete 02/19/19 Gram Stain - Final, Resulted 02/19/19 Sputum Culture, Resulted Pending ANNABEL FOSTER MD Feb 20, 2019 13:44
[2019-02-20] MEDS ORDERED: clonazePAM 0.5 MG TAB PO ONE (15:15)
[2019-02-20] MEDS: QUEtiapine FUMARATE 200 MG TAB PO SCH (20:08)
[2019-02-21] VITALS (14 sets, daily range): BP systolic 94–117; BP diastolic 56–78
[2019-02-21] MEDS: IPRATROPIUM 0.5MG/ALBUTEROL 2.5MG INH SOL UD 3ML (DUONEB)(J7620) NEB SCH ×5 (03:00→20:00)
[2019-02-21] MEDS: methylPREDNISolone INJ 40 MG/1 ML VIAL (J2920) IV SCH ×3 (05:12→20:59)
[2019-02-21] MEDS: SYMBICORT 80/4.5MCG INHALER 6GM INH SCH ×2 (07:20→20:31)
[2019-02-21] MEDS: PANTOPRAZOLE 40MG TAB (PROTONIX) PO SCH (08:10)
[2019-02-21] MEDS: PREGABALIN 100 MG CAP (LYRICA) PO SCH ×3 (08:10→20:59)
[2019-02-21] MEDS: BUPRENORPHINE/NALOXONE 8-2MG SUBLINGUAL TABLET(SUBOXONE) SL SCH ×2 (08:10→20:59)
[2019-02-21] MEDS: clonazePAM 0.5 MG TAB PO PRN ×3 (08:10→20:59)
[2019-02-21] MEDS: GABAPENTIN 400 MG CAP PO SCH ×3 (08:11→20:59)
[2019-02-21] MEDS: ENOXAPARIN 40 MG/0.4 ML SYRINGE (J1650) SC SCH (08:11)
[2019-02-21 09:01] LABS: ABG HCO3 25.6 MEQ/L (22.0-26.0); ABG O2 SATURATION 88.6 % (95.0-99.0); ABG PARTIAL PRESSURE CO2 45.4 mmHg (35.0-45.0); ABG PARTIAL PRESSURE O2 59.3 mmHg (75.0-100.0); ABG STANDARD HCO3 24.3 MEQ/L (22.0-26.0); ABG pH (ARTERIAL) 7.369 UNITS (7.350-7.450)
[2019-02-21] MEDS: FUROSEMIDE 20 MG/2 ML VIAL (J1940) IV SCH (11:28)
[2019-02-21] MEDS: LevoFLOXacin IV 500 MG in APPROPRIATE DILUENT 1 EA IV SCH (11:28)
[2019-02-21] MEDS: QUEtiapine FUMARATE 200 MG TAB PO SCH (20:59)
[2019-02-21] MEDS: ACETAMINOPHEN TAB 650MG DOSE (2X325MG) PO PRN ×2 (21:06→21:09)
--- NOTE | 2019-02-21 23:28 | IPNPDOC ---
Subjective Date Seen The patient was seen on 02/21/19. Subjective Chief Complaint/HPI Complains of worsening abdominal bloating and pain, though says has been eating ok. She is upset as i reduced her gabapentin and her clonazepam is only prn. Explained about her high CO2 levels which she did understand and accepted the reduction. Also complaining of urinary incontinance. Said she was told in the ED that she has bladder prolapse. She also complains of very irregular menstrual periods and often goes months without any. She was insiting on seeing a Gynaecologist and urologist. I explained that these are her chronic issues and nothing that needs to be or can be treated immediately. She will need full work up with urodynamic study, full gynaecologic work up which can be done as outpatient. I have said that i will set up referrals with [facility] and urologist on discharge. Objective Physical Examination General Exam: Positive: Alert, Cooperative, No Acute Distress ENT Exam: Positive: Atraumatic, Mucous membr. moist/pink Chest Exam: Positive: Diminished Heart Exam: Positive: Rate Normal, Normal S1, Normal S2 Abdomen Exam: Positive: Soft; Negative: Tenderness Extremity Exam: Positive: Swelling (trace pitting edema in the L/E B/L); Negative: Tenderness Psych Exam: Positive: Oriented x 3 Assessment /Plan Assessment Hypoxic, Hypercarbic Respiratory Failure 2/2 Bronchiolitis in a patient with Hx of Asthma and being on chronic narcotics, benzos and sedatives CT Chest noted Resp panel negative IV Steroids, Levaquin, Inhaler therapy, and Serial Nebs as ordered Supplemental Oxygen therapy to be weaned as tolerated. Have reduced her clonazepam and gabapentin. 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 CT Abd/Pel noted on admission with no acute changes when compared to 08/01/2018 Patient tolerating a PO diet however states that she feels bloated and swollen. Chronic abdominal pain well controlled, and at baseline Patient has yet to have a BM but passing flatus however refusing bowel meds. Her albumin better than usual at 2.0 Insists that she is having a worsening of her disease which happens whenevere she is sick. will give 2 days of lasix and albumin for diuresis. Patient encouraged to intake a high protein diet History of hepatitis C. History of IVDU. Patient has had no treatment in the past. HIV negative. Hep A and B are negative from 06/2018 admission Follow up as outpatient for treatment once medically stable Anxiety/depression Cont Seroquel. Clonazepam TID has been cut in half 12/29 #1, and concerns with the patient's dr aguilar History of IV drug use On Suboxone. Bladder Prolapse Patient states Hx of Bladder Prolapse She denies any c/o increased urinary frequency, incontinence, or suprapubic pain Patient counseled to f/u with Surgery as outpatient We will consider surgical consultation here if the patient becomes symptomatic History of post-traumatic stress disorder (PTSD). Deep vein thrombosis (DVT) prophylaxis Lovenox SC Dispo--pending clinical improvement. Plan/VTE VTE Prophylaxis Ordered?: Yes VS, I&O, 24H, Fishbone Vital Signs/I&O Vital Signs Date Time Temp Pulse Resp B/P (MAP) Pulse Ox O2 Delivery O2 Flow Rate FiO2 02/21/19 21:45 97.2 87 16 102/62 (75) 92 2.0 02/20/19 08:52 Nasal Cannula 02/19/19 08:00 98 I&O- Last 24 Hours up to 6 AM 02/21/19 06:00 Intake Total 1300 ml Output Total 950 ml Balance 350 ml Laboratory Data 24H LABS Laboratory Tests 2 02/21/19 08:54: Blood Gas Bicarbonate Standard 24.3, Arterial Blood pH 7.369, Arterial Blood Partial Pressure CO2 45.4H, Arterial Blood Partial Pressure O2 59.3L, Arterial Blood Total CO2 27.0, Arterial Blood HCO3 25.6, Arterial Blood Base Excess 0.0, Arterial Blood Oxygen Saturation 88.6L Microbiology Microbiology 02/19/19 Respiratory Virus Panel (PCR) (JEFFY) - Final, Complete 02/19/19 Gram Stain - Final, Complete 02/19/19 Sputum Culture - Final, Complete Yeast Like Organism OZ GUERRERO MD Feb 21, 2019 23:28
[2019-02-22] VITALS (10 sets, daily range): BP systolic 87–117; BP diastolic 53–70
[2019-02-22] MEDS: FUROSEMIDE 20 MG/2 ML VIAL (J1940) IV SCH ×2 (00:07→12:14)
[2019-02-22] MEDS: IPRATROPIUM 0.5MG/ALBUTEROL 2.5MG INH SOL UD 3ML (DUONEB)(J7620) NEB SCH ×7 (03:48→23:02)
[2019-02-22 04:59] LABS: HEMATOCRIT 42.9 % (36.0-47.0); HEMOGLOBIN 13.2 g/dl (12.0-15.5); MEAN CORPUSCULAR HEMOGLOBIN 24.9 pg (27.0-33.0); MEAN CORPUSCULAR HGB CONC 30.8 g/dl (32.0-36.5); MEAN CORPUSCULAR VOLUME 80.9 fl (80.0-96.0); PLATELET COUNT, AUTOMATED 376 10^3/uL (150-450); WHITE BLOOD COUNT 7.5 10^3/uL (4.0-10.0)
[2019-02-22] MEDS: methylPREDNISolone INJ 40 MG/1 ML VIAL (J2920) IV SCH (05:10)
[2019-02-22 05:26] LABS: BLOOD UREA NITROGEN 23 MG/DL (7-18); CALCIUM LEVEL 7.8 MG/DL (8.5-10.1); CARBON DIOXIDE LEVEL 31 MEQ/L (21-32); CHLORIDE LEVEL 107 MEQ/L (98-107); CREATININE FOR GFR 0.68 MG/DL (0.55-1.30); GLOMERULAR FILTRATION RATE > 60.0 (>60); GLUCOSE, FASTING 120 MG/DL (70-100); POTASSIUM SERUM 4.4 MEQ/L (3.5-5.1); SODIUM LEVEL 144 MEQ/L (136-145)
[2019-02-22] MEDS: SYMBICORT 80/4.5MCG INHALER 6GM INH SCH ×2 (08:30→19:48)
[2019-02-22] MEDS: PANTOPRAZOLE 40MG TAB (PROTONIX) PO SCH (09:10)
[2019-02-22] MEDS: PREGABALIN 100 MG CAP (LYRICA) PO SCH ×3 (09:10→21:57)
[2019-02-22] MEDS: BUPRENORPHINE/NALOXONE 8-2MG SUBLINGUAL TABLET(SUBOXONE) SL SCH ×2 (09:10→21:00)
[2019-02-22] MEDS: GABAPENTIN 400 MG CAP PO SCH ×3 (09:10→21:57)
[2019-02-22] MEDS: ENOXAPARIN 40 MG/0.4 ML SYRINGE (J1650) SC SCH (09:11)
[2019-02-22] MEDS: ACETAMINOPHEN TAB 650MG DOSE (2X325MG) PO PRN ×3 (09:17→22:58)
[2019-02-22] MEDS: clonazePAM 0.5 MG TAB PO PRN (09:17)
[2019-02-22 10:06] LABS: ALBUMIN 2.5 GM/DL (3.2-5.2); ALT/SGPT 29 U/L (12-78); BILIRUBIN,DIRECT < 0.1 MG/DL (0.0-0.2); BILIRUBIN,TOTAL 0.2 MG/DL (0.2-1.0); TOTAL PROTEIN 5.1 GM/DL (6.4-8.2)
[2019-02-22] MEDS: LevoFLOXacin IV 500 MG in APPROPRIATE DILUENT 1 EA IV SCH (10:20)
--- NOTE | 2019-02-22 12:00 | CCN ---
DATE OF SERVICE: 02/22/2019 Ms. Mendoza is seen in the intensive care unit (ICU). She reports no new issues. She has been afebrile. She is currently on supplemental oxygen at 2 liters. 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 She states that she feels that she has had frequent illnesses and infections over the last several years at least. She also is a smoker. Dr. Prieto and I reviewed the patient's chest CT from 02/18/2019 and we measured a right lower lobe pleural based nodule at 15 mm and also could not rule out bronchiectasis on CT. Vitals: Temperature 96.5, pulse 75, respiratory rate 18, blood pressure is 110/63, oxygen saturation 92% on 2 liters. General: The patient is alert and oriented and speaks in complete sentences. HEENT: Head is normocephalic, atraumatic. Very poor dentition. Moist mucous membranes. Tongue is midline. Neck: Neck is supple. No cervical lymphadenopathy. No jugular venous distention (JVD). Trachea is midline. Chest: The patient has scattered rhonchi bilaterally. Heart: Regular rate and rhythm. S1 and S2. No murmurs. Abdomen: Positive bowel sounds. Soft, nontender. No rebound or guarding. Extremities: No edema. LABORATORY DATA: WBC 7.5, hemoglobin 13.2, hematocrit 42.9, platelets 376. Sodium is 144, potassium 4.4, chloride 107, carbon dioxide 31, BUN 23, creatinine 0.68, glucose 120, calcium 7.8, total bilirubin 0.2, direct bilirubin less than 0.1, AST is 37, ALT is 29, alkaline phosphatase 46, total protein 5.1, albumin 2.5. ASSESSMENT/PLAN: 1. Hypoxic respiratory failure. The patient is still requiring supplemental oxygen with nasal cannula. Continue with DuoNebs and will discontinue Solu-Medrol and change to oral prednisone. The patient is also on Symbicort. She will require outpatient workup with full pulmonary function testing after being discharged from hospital. 2. Bronchiolitis/bronchiectasis. Suspect bronchiectasis based on chest CT. We discussed smoking cessation with the patient. Could consider combo therapy with nicotine patches and something like Wellbutrin. Will continue to advise aggressive pulmonary toilet and continue DuoNebs. The patient is on Solu-Medrol currently and plan is to change her to oral prednisone and stop the Solu-Medrol. We will check alpha-1 antitrypsin deficiency labs. Would consider checking immunoglobulins down the road as an outpatient. Would avoid checking immunoglobulins at the present time because of the patient's acute illness, but these should be checked in the future. Once she is discharged from the hospital, she should followup with pulmonary. 3. Lung nodule. The patient does have a lung nodule on chest CT from 02/18/2019. The lung nodule is in the right lower lobe and measures 15 mm and is pleural-based. This was not present on prior chest CT from July 21, 2017. On that July 21, 2017 study, there was a right middle lobe opacity/nodule that has resolved compared to the new chest CT. At any rate, the new right lower lobe nodule should be followed closely and the patient should have a repeat chest CT done in a month's time. 4. Tobacco use. Discussion with the patient concerning tobacco cessation. The patient states that she tried quitting in the past, but has been unable to quit smoking over the last several years. We talked about the medical options including a combo therapy with something like Wellbutrin and nicotine patch.
[2019-02-22] MEDS: clonazePAM 1 MG TAB PO SCH ×2 (16:50→21:57)
--- NOTE | 2019-02-22 21:23 | IPNPDOC ---
Subjective Date Seen The patient was seen on 02/22/19. Subjective Chief Complaint/HPI Continues to have SOB and still needing oxygen. Says still feels unwell. Continues to complain of urinary incontinence. Denies any abdominal pain today. Says feels very anxious and agitated, wants her clonazepam and gabapentin dosage increased to home dosage. Objective Physical Examination General Exam: Positive: Alert, Cooperative, No Acute Distress Eye Exam: Positive: PERRLA ENT Exam: Positive: Atraumatic, Mucous membr. 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 She was found to have acute hypoxic hypercarbic respiratory failure thought to be due to Bronchiolitis / bronchiectasis with asthma exacerbation. Acute Hypoxic, Hypercarbic Respiratory Failure 2/2 Bronchiolitis / bronchiectasis in a patient with Hx of Asthma and being on chronic narcotics, benzos and sedatives CT Chest noted Resp panel negative Prednisone, Levaquin, Inhaler therapy, and Serial Nebs as ordered Supplemental Oxygen therapy to be weaned as tolerated. Pulmonary input appreciated We will cont to monitor Bronchiolitis/ Bronchiectasis Will need further work up as outpatient follow up with pulmonary. Pulmonary nodule with hilar lymphadenopathy follow up with pulmonary as outpatient. Congenital Intestinal lymphangiectasia with complex enteric protein-losing ente ropathy. CT Abd/Pel noted on admission with no acute changes when compared to 08/01/2018 Patient tolerating a PO diet however states that she feels bloated and swollen. Chronic abdominal pain well controlled, and at baseline Patient has yet to have a BM but passing flatus however refusing bowel meds. Her albumin better than usual at 2.0 Insists that she is having a worsening of her disease which happens when ever she is sick. will give 2 days of lasix and albumin for diuresis. Patient encouraged to intake a high protein diet History of hepatitis C. History of IVDU. Patient has had no treatment in the past. HIV negative. Hep A and B are negative from 06/2018 admission Follow up as outpatient for treatment once medically stable Anxiety/depression Cont Seroquel. continue clonazepam and gabapentin. History of IV drug use On Suboxone for 8 years. 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 History of post-traumatic stress disorder (PTSD). continue home meds. Smoking cessation discussed with patient. Deep vein thrombosis (DVT) prophylaxis Lovenox SC Dispo--pending clinical improvement. Plan/VTE VTE Prophylaxis Ordered?: Yes VS, I&O, 24H, Fishbone Vital Signs/I&O Vital Signs Date Time Temp Pulse Resp B/P (MAP) Pulse Ox O2 Delivery O2 Flow Rate FiO2 02/22/19 16:00 2.0 02/22/19 15:45 97.5 96 18 103/63 (76) 92 02/20/19 08:52 Nasal Cannula 02/19/19 08:00 98 I&O- Last 24 Hours up to 6 AM 02/22/19 06:00 Intake Total 2510 ml Output Total 6750 ml Balance -4240 ml Laboratory Data 24H LABS Laboratory Tests 2 02/22/19 04:18: Nucleated Red Blood Cells % (auto) 0.0, Anion Gap 6L, Glomerular Filtration Rate > 60.0, Calcium Level 7.8L, Aspartate Amino Transf (AST/SGOT) 37, Alanine Aminot ransferase (ALT/SGPT) 29, Alkaline Phosphatase 46, Total Bilirubin 0.2, Direct Bilirubin < 0.1, Total Protein 5.1L, Albumin 2.5L, Albumin/Globulin Ratio 0.96L CBC/BMP Laboratory Tests 02/22/19 04:18 Red Blood Count 5.30, Mean Corpuscular Volume 80.9, Mean Corpuscular Hemoglobin 24.9 L, Mean Corpuscular Hemoglobin Concent 30.8 L, Red Cell Distribution Width 20.3 H Microbiology Microbiology 02/19/19 Respiratory Virus Panel (PCR) ([facility]) - Final, Complete 02/19/19 Gram Stain - Final, Complete 02/19/19 Sputum Culture - Final, Complete Yeast Like Organism OZ GUERRERO MD Feb 22, 2019 21:23
[2019-02-22] MEDS: QUEtiapine FUMARATE 200 MG TAB PO SCH (21:57)
[2019-02-23] MEDS: FUROSEMIDE 20 MG/2 ML VIAL (J1940) IV SCH (00:28)
[2019-02-23] MEDS: IPRATROPIUM 0.5MG/ALBUTEROL 2.5MG INH SOL UD 3ML (DUONEB)(J7620) NEB SCH ×6 (03:01→23:03)
[2019-02-23] MEDS: LevoFLOXacin 500 MG TABLET PO SCH (05:38)
[2019-02-23] MEDS: ACETAMINOPHEN TAB 650MG DOSE (2X325MG) PO PRN (05:44)
[2019-02-23 06:00] VITALS: BP 98/62
[2019-02-23 06:32] LABS: BLOOD UREA NITROGEN 31 MG/DL (7-18); CALCIUM LEVEL 7.7 MG/DL (8.5-10.1); CARBON DIOXIDE LEVEL 29 MEQ/L (21-32); CHLORIDE LEVEL 110 MEQ/L (98-107); CREATININE FOR GFR 0.61 MG/DL (0.55-1.30); GLOMERULAR FILTRATION RATE > 60.0 (>60); GLUCOSE, FASTING 94 MG/DL (70-100); POTASSIUM SERUM 3.8 MEQ/L (3.5-5.1); SODIUM LEVEL 147 MEQ/L (136-145)
[2019-02-23] MEDS: SYMBICORT 80/4.5MCG INHALER 6GM INH SCH ×2 (07:04→19:52)
[2019-02-23] MEDS: BUPRENORPHINE/NALOXONE 8-2MG SUBLINGUAL TABLET(SUBOXONE) SL SCH ×2 (08:45→21:42)
[2019-02-23] MEDS: PREGABALIN 100 MG CAP (LYRICA) PO SCH ×3 (08:45→21:42)
[2019-02-23] MEDS: PANTOPRAZOLE 40MG TAB (PROTONIX) PO SCH (08:46)
[2019-02-23] MEDS: predniSONE 10 MG TAB PO SCH (08:46)
[2019-02-23] MEDS: GABAPENTIN 400 MG CAP PO SCH ×3 (08:46→21:42)
[2019-02-23] MEDS: clonazePAM 1 MG TAB PO SCH ×3 (08:46→21:42)
[2019-02-23] MEDS: ENOXAPARIN 40 MG/0.4 ML SYRINGE (J1650) SC SCH (08:47)
[2019-02-23 08:51] LABS: ALBUMIN 2.5 GM/DL (3.2-5.2)
[2019-02-23 14:00] VITALS: BP 89/51
[2019-02-23] MEDS ORDERED: DOCUSATE SODIUM 100 MG CAP PO ONE (21:00)
[2019-02-23] MEDS: QUEtiapine FUMARATE 200 MG TAB PO SCH (21:42)
[2019-02-23] MEDS: SENNA 8.6 MG TAB (SENOKOT) PO PRN (21:43)
--- NOTE | 2019-02-23 23:23 | IPNPDOC ---
Subjective Date Seen The patient was seen on 02/23/19. Subjective Chief Complaint/HPI Says has been sick for several months and goes out of the house about twice a month. Has extreme anxiety when she goes out and feels everyone is watching her that makes her panic so cannot go out of the house. She is concerned that she does not have regular menstrual periods . She wants to have a baby so wants to know if there is anything wrong so wants to see a tooler. I spoke with Dr Griffith from urology regarding her urinary incontinence issues and possibility of bladder prolapse. She reviewed her chart and said there is no obvious problem that she could detect full examination of her problem can only been done in the office. I will refer her to the urologic office. 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 Will try to set up referrals to both SAUSAGE INSPECTOR and Urology on discharge. Objective Physical Examination General Exam: Positive: Alert, Cooperative, No Acute Distress Eye Exam: Positive: PERRLA ENT Exam: Positive: Atraumatic, Mucous membr. moist/pink Chest Exam: Positive: Rales, Wheezing, Diminished, Other (coarse breath sounds. 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 She was found to have acute hypoxic hypercarbic respiratory failure thought to be due to Bronchiolitis / bronchiectasis with asthma exacerbation. Acute Hypoxic, Hypercarbic Respiratory Failure 2/2 Bronchiolitis / bronchiectas is in a patient with Hx of Asthma and being on chronic narcotics, benzos and sedatives CT Chest noted Resp panel negative Prednisone, Levaquin, Inhaler therapy, and Serial Nebs as ordered Supplemental Oxygen therapy to be weaned as tolerated. Pulmonary input appreciated We will cont to monitor Bronchiolitis/ Bronchiectasis Will need further work up as outpatient follow up with pulmonary. Pulmonary nodule with hilar lymphadenopathy follow up with pulmonary as outpatient. Congenital Intestinal lymphangiectasia with complex enteric protein-losing enteropathy. CT Abd/Pel noted on admission with no acute changes when compared to 08/01/2018 Patient tolerating a PO diet however states that she feels bloated and swollen. Chronic abdominal pain well controlled, and at baseline Patient has yet to have a BM but passing flatus however refusing bowel meds. Her albumin better than usual at 2.0 Insists that she is having a worsening of her disease which happens when ever she is sick. will give 2 days of lasix and albumin for diuresis. Patient encouraged to intake a high protein diet History of hepatitis C. History of IVDU. Patient has had no treatment in the past. HIV negative. Hep A and B are negative from 06/2018 admission Follow up as outpatient for treatment once medically stable Anxiety/depression Cont Seroquel. continue clonazepam and gabapentin. History of IV drug use On Suboxone for 8 years. urinary incontinence/Bladder Prolapse Patient states Hx of Bladder Prolapse will give outpatient referral to urology . Discussed with Dr Griffith. History of post-traumatic stress disorder (PTSD). continue home meds. Smoking cessation discussed with patient. Deep vein thrombosis (DVT) prophylaxis Lovenox SC Dispo--pending clinical improvement. Plan/VTE VTE Prophylaxis Ordered?: Yes VS, I&O, 24H, Fishbone Vital Signs/I&O Vital Signs Date Time Temp Pulse Resp B/P (MAP) Pulse Ox O2 Delivery O2 Flow Rate FiO2 02/23/19 14:00 96.6 104 18 89/51 (64) 91 02/23/19 09:40 1.0 02/20/19 08:52 Nasal Cannula 02/19/19 08:00 98 I&O- Last 24 Hours up to 6 AM 02/23/19 06:00 Intake Total 740 ml Output Total 2400 ml Balance -1660 ml Laboratory Data 24H LABS Laboratory Tests 2 02/23/19 05:32: Anion Gap 8, Glomerular Filtration Rate > 60.0, Blood Urea Nitrogen 31H, Creatinine 0.61, Sodium Level 147H, Potassium Level 3.8, Chloride Level 110H, Carbon Dioxide Level 29, Calcium Level 7.7L, Albumin 2.5L CBC/BMP Laboratory Tests 02/23/19 05:32 Calcium Level 7.7 L Microbiology Microbiology 02/19/19 Respiratory Virus Panel (PCR) ([facility]) - Final, Complete 02/19/19 Gram Stain - Final, Complete 02/19/19 Sputum Culture - Final, Complete Yeast Like Organism OZ GUERRERO MD Feb 23, 2019 23:23
[2019-02-24] MEDS: IPRATROPIUM 0.5MG/ALBUTEROL 2.5MG INH SOL UD 3ML (DUONEB)(J7620) NEB SCH ×5 (03:57→20:00)
[2019-02-24 06:00] VITALS: BP 101/56
[2019-02-24] MEDS: LevoFLOXacin 500 MG TABLET PO SCH (06:10)
[2019-02-24] MEDS: ACETAMINOPHEN TAB 650MG DOSE (2X325MG) PO PRN ×2 (06:11→13:09)
[2019-02-24 06:47] LABS: BLOOD UREA NITROGEN 25 MG/DL (7-18); CALCIUM LEVEL 7.2 MG/DL (8.5-10.1); CARBON DIOXIDE LEVEL 24 MEQ/L (21-32); CHLORIDE LEVEL 107 MEQ/L (98-107); CREATININE FOR GFR 0.55 MG/DL (0.55-1.30); GLOMERULAR FILTRATION RATE > 60.0 (>60); GLUCOSE, FASTING 80 MG/DL (70-100); POTASSIUM SERUM 5.1 MEQ/L (3.5-5.1); SODIUM LEVEL 138 MEQ/L (136-145)
[2019-02-24] MEDS: SYMBICORT 80/4.5MCG INHALER 6GM INH SCH ×2 (07:42→21:31)
[2019-02-24] MEDS: ENOXAPARIN 40 MG/0.4 ML SYRINGE (J1650) SC SCH (08:22)
[2019-02-24] MEDS: clonazePAM 1 MG TAB PO SCH ×3 (08:26→20:14)
[2019-02-24] MEDS: predniSONE 10 MG TAB PO SCH (08:26)
[2019-02-24] MEDS: BUPRENORPHINE/NALOXONE 8-2MG SUBLINGUAL TABLET(SUBOXONE) SL SCH ×2 (08:26→20:14)
[2019-02-24] MEDS: PANTOPRAZOLE 40MG TAB (PROTONIX) PO SCH (08:26)
[2019-02-24] MEDS: PREGABALIN 100 MG CAP (LYRICA) PO SCH ×3 (08:27→20:14)
[2019-02-24] MEDS: GABAPENTIN 400 MG CAP PO SCH ×3 (08:27→20:14)
[2019-02-24] MEDS ORDERED: MAGNESIUM CITRATE 300 ML BTL PO ONE (13:00)
[2019-02-24 14:00] VITALS: BP 110/59
[2019-02-24] MEDS: QUEtiapine FUMARATE 200 MG TAB PO SCH (20:14)
[2019-02-24] MEDS: SENNA 8.6 MG TAB (SENOKOT) PO PRN (20:14)
--- NOTE | 2019-02-24 20:51 | IPNPDOC ---
Subjective Date Seen The patient was seen on 02/24/19. Subjective Chief Complaint/HPI Patient continues to complain of not feeling well. Says having severe body aches and malaise since yesterday. Also says has not had a bowel movement for several days and feeling tight. She did take mag citrate without any result yet. Continues to complain of chest tightness and wheezing. Says did walk around but only in the room. Has not been doing the incentive spirometry. Objective Physical Examination General Exam: Positive: Alert, Cooperative, No Acute Distress Eye Exam: Positive: PERRLA ENT Exam: Positive: Atraumatic, Mucous membr. moist/pink Chest Exam: Positive: Rales, Wheezing, Diminished, Other (coarse breath sounds. 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 She was found to have acute hypoxic hypercarbic respiratory failure thought to be due to Bronchiolitis / bronchiectasis with asthma exacerbation. Acute Hypoxic, Hypercarbic Respiratory Failure 2/2 Bronchiolitis / bronchiectasis in a patient with Hx of Asthma and being on chronic narcotics, benzos and sedatives CT Chest noted Resp panel negative Prednisone, Levaquin, Inhaler therapy, and Serial Nebs as ordered Pulmonary input appreciated We will cont to monitor Has been weaned off oxygen Bronchiolitis/ Bronchiectasis Will need further work up as outpatient follow up with pulmonary. Pulmonary nodule with hilar lymphadenopathy follow up with pulmonary as outpatient. Congenital Intestinal lymphangiectasia with complex enteric protein-losing enteropathy. CT Abd/Pel noted on admission with no acute changes when compared to 08/01/2018 Patient tolerating a PO diet however states that she feels bloated and swollen. Chronic abdominal pain well controlled, and at baseline Patient has yet to have a BM but passing flatus however refusing bowel meds. Her albumin better than usual at 2.0 Insists that she is having a worsening of her disease which happens when ever she is sick. will give 2 days of lasix and albumin for diuresis. Patient encouraged to intake a high protein diet History of hepatitis C. History of IVDU. Patient has had no treatment in the past. HIV negative. Hep A and B are negative from 06/2018 admission Follow up as outpatient for treatment once medically stable Anxiety/depression Cont Seroquel. continue clonazepam and gabapentin. History of IV drug use On Suboxone for 8 years. urinary incontinence/Bladder Prolapse Patient states Hx of Bladder Prolapse will give outpatient referral to urology . Discussed with Dr Griffith. History of post-traumatic stress disorder (PTSD). continue home meds. Smoking cessation discussed with patient. Deep vein thrombosis (DVT) prophylaxis Lovenox SC Dispo--pending clinical improvement. Plan/VTE VTE Prophylaxis Ordered?: Yes VS, I&O, 24H, Fishbone Vital Signs/I&O Vital Signs Date Time Temp Pulse Resp B/P (MAP) Pulse Ox O2 Delivery O2 Flow Rate FiO2 02/24/19 14:00 96.0 92 18 110/59 (76) 92 02/24/19 06:00 1.0 02/20/19 08:52 Nasal Cannula 02/19/19 08:00 98 I&O- Last 24 Hours up to 6 AM 02/24/19 06:00 Intake Total 805 ml Output Total 400 ml Balance 405 ml Laboratory Data 24H LABS Laboratory Tests 2 02/24/19 05:53: Anion Gap 7L, Glomerular Filtration Rate > 60.0, Blood Urea Nitrogen 25H, Creatinine 0.55, Sodium Level 138#, Potassium Level 5.1#, Chloride Level 107, Carbon Dioxide Level 24, Calcium Level 7.2L CBC/BMP Laboratory Tests 02/24/19 05:53 Calcium Level 7.2 L Microbiology Microbiology 02/19/19 Respiratory Virus Panel (PCR) ([facility]) - Final, Complete 02/19/19 Gram Stain - Final, Complete 02/19/19 Sputum Culture - Final, Complete Yeast Like Organism OZ GUERRERO MD Feb 24, 2019 20:51
[2019-02-24 22:00] VITALS: BP 108/62
[2019-02-24] MEDS: MOM 30ML SUSPENSION UDC PO SCH (23:13)
[2019-02-24] MEDS: MIRALAX *UNIT DOSE* 17GM PACKET PO SCH (23:13)
[2019-02-25] MEDS: IPRATROPIUM 0.5MG/ALBUTEROL 2.5MG INH SOL UD 3ML (DUONEB)(J7620) NEB SCH ×6 (04:00→20:00)
[2019-02-25] MEDS: LevoFLOXacin 500 MG TABLET PO SCH (05:38)
[2019-02-25 06:00] VITALS: BP 115/70
[2019-02-25 06:06] LABS: HEMATOCRIT 44.1 % (36.0-47.0); HEMOGLOBIN 13.9 g/dl (12.0-15.5); MEAN CORPUSCULAR HEMOGLOBIN 25.3 pg (27.0-33.0); MEAN CORPUSCULAR HGB CONC 31.5 g/dl (32.0-36.5); MEAN CORPUSCULAR VOLUME 80.3 fl (80.0-96.0); PLATELET COUNT, AUTOMATED 338 10^3/uL (150-450); RED BLOOD COUNT 5.49 10^6/uL (4.00-5.40); WHITE BLOOD COUNT 8.7 10^3/uL (4.0-10.0)
[2019-02-25 06:34] LABS: BLOOD UREA NITROGEN 22 MG/DL (7-18); CALCIUM LEVEL 7.7 MG/DL (8.5-10.1); CARBON DIOXIDE LEVEL 30 MEQ/L (21-32); CHLORIDE LEVEL 106 MEQ/L (98-107); CREATININE FOR GFR 0.59 MG/DL (0.55-1.30); GLOMERULAR FILTRATION RATE > 60.0 (>60); GLUCOSE, FASTING 100 MG/DL (70-100); POTASSIUM SERUM 4.2 MEQ/L (3.5-5.1); SODIUM LEVEL 141 MEQ/L (136-145)
[2019-02-25] MEDS: SYMBICORT 80/4.5MCG INHALER 6GM INH SCH ×2 (07:38→20:28)
[2019-02-25] MEDS: ENOXAPARIN 40 MG/0.4 ML SYRINGE (J1650) SC SCH (09:00)
[2019-02-25] MEDS: MOM 30ML SUSPENSION UDC PO SCH ×2 (09:41→20:23)
[2019-02-25] MEDS: clonazePAM 1 MG TAB PO SCH ×3 (09:42→20:23)
[2019-02-25] MEDS: GABAPENTIN 400 MG CAP PO SCH ×3 (09:42→20:23)
[2019-02-25] MEDS: MIRALAX *UNIT DOSE* 17GM PACKET PO SCH ×2 (09:42→20:23)
[2019-02-25] MEDS: PREGABALIN 100 MG CAP (LYRICA) PO SCH ×3 (09:42→20:23)
[2019-02-25] MEDS: PANTOPRAZOLE 40MG TAB (PROTONIX) PO SCH (09:43)
[2019-02-25] MEDS: predniSONE 10 MG TAB PO SCH (09:43)
[2019-02-25] MEDS: BUPRENORPHINE/NALOXONE 8-2MG SUBLINGUAL TABLET(SUBOXONE) SL SCH ×2 (10:10→20:23)
[2019-02-25 14:00] VITALS: BP 110/51
[2019-02-25] MEDS ORDERED: FLEET ENEMA PR PRN (14:00)
[2019-02-25] MEDS: QUEtiapine FUMARATE 200 MG TAB PO SCH (20:23)
[2019-02-25] MEDS: ACETAMINOPHEN TAB 650MG DOSE (2X325MG) PO PRN (20:24)
[2019-02-25] MEDS: IBUPROFEN 400 MG TAB PO PRN (21:43)
[2019-02-25 22:00] VITALS: BP 108/56
--- NOTE | 2019-02-25 22:50 | IPNPDOC ---
Subjective Date Seen The patient was seen on 02/25/19. Subjective Chief Complaint/HPI Complains of abdominal pain and distension. Has not had any bowel movements for 2 weeks as per pateint. She has not had any since admission. She feels very bloated and uncomfortable. Started on aggressive bowel regimensince yesterday. Hopefully will have good results today. Still has cough and wheezing. No fever or chills, no hemoptysis. Says her appetite has really improved in the hospital. Objective Physical Examination General Exam: Positive: Alert, Cooperative, No Acute Distress Eye Exam: Positive: PERRLA ENT Exam: Positive: Atraumatic, Mucous membr. moist/pink Chest Exam: Positive: Rales, Wheezing, Diminished, Other (coarse breath sounds. ) Heart Exam: Positive: Rate Normal, Normal S1, Normal S2 Abdomen Exam: Positive: BS Hyperactive, Soft, Tenderness (there is diffuse tenderness present but no guarding or rigidity. 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 She was found to have acute hypoxic hypercarbic respiratory failure thought to be due to Bronchiolitis / bronchiectasis with asthma exacerbation. Acute Hypoxic, Hypercarbic Respiratory Failure 2/2 Bronchiolitis / bronchiectasis in a patient with Hx of Asthma and being on chronic narcotics, benzos and sedatives CT Chest noted Resp panel negative Prednisone, Levaquin, Inhaler therapy, and Serial Nebs as ordered Pulmonary input appreciated We will cont to monitor Has been weaned off oxygen Bronchiolitis/ Bronchiectasis Will need further work up as outpatient follow up with pulmonary. Pulmonary nodule with hilar lymphadenopathy follow up with pulmonary as outpatient. Congenital Intestinal lymphangiectasia with complex enteric protein-losing enteropathy. CT Abd/Pel noted on admission with no acute changes when compared to 08/01/2018 Patient tolerating a PO diet however states that she feels bloated and swollen. Chronic abdominal pain well controlled, and at baseline Patient has yet to have a BM but passing flatus however refusing bowel meds. Her albumin better than usual at 2.0 Insists that she is having a worsening of her disease which happens when ever she is sick. will give 2 days of lasix and albumin for diuresis. Patient encouraged to intake a high protein diet History of hepatitis C. History of IVDU. Patient has had no treatment in the past. HIV negative. Hep A and B are negative from 06/2018 admission Follow up as outpatient for treatment once medically stable Anxiety/depression Cont Seroquel. continue clonazepam and gabapentin. History of IV drug use On Suboxone for 8 years. urinary incontinence/Bladder Prolapse Patient states Hx of Bladder Prolapse will give outpatient referral to urology . Discussed with Dr Griffith. History of post-traumatic stress disorder (PTSD). continue home meds. Smoking cessation discussed with patient. Constipation No bowel movement for 2 weeks will start aggressive bowel regimen Deep vein thrombosis (DVT) prophylaxis Lovenox SC Dispo--pending clinical improvement. Plan/VTE VTE Prophylaxis Ordered?: Yes VS, I&O, 24H, Fishbone Vital Signs/I&O Vital Signs Date Time Temp Pulse Resp B/P (MAP) Pulse Ox O2 Delivery O2 Flow Rate FiO2 02/25/19 22:00 98.1 96 20 108/56 (73) 92 02/24/19 06:00 1.0 02/20/19 08:52 Nasal Cannula 02/19/19 08:00 98 I&O- Last 24 Hours up to 6 AM 02/25/19 06:00 Intake Total 1190 ml Output Total 2100 ml Balance -910 ml Laboratory Data 24H LABS Laboratory Tests 2 02/25/19 05:54: Nucleated Red Blood Cells % (auto) 0.0, Anion Gap 5L, Glomerular Filtration Rate > 60.0, Blood Urea Nitrogen 22H, Creatinine 0.59, Sodium Level 141, Potassium Level 4.2, Chloride Level 106, Carbon Dioxide Level 30, Calcium Level 7.7L CBC/BMP Laboratory Tests 02/25/19 05:54 Red Blood Count 5.49 H, Mean Corpuscular Volume 80.3, Mean Corpuscular Hemoglobin 25.3 L, Mean Corpuscular Hemoglobin Concent 31.5 L, Red Cell Distr ibution Width 19.9 H, Calcium Level 7.7 L Microbiology Microbiology 02/19/19 Respiratory Virus Panel (PCR) ([facility]) - Final, Complete 02/19/19 Gram Stain - Final, Complete 02/19/19 Sputum Culture - Final, Complete Yeast Like Organism OZ GUERRERO MD Feb 25, 2019 22:50
[2019-02-26] MEDS: IPRATROPIUM 0.5MG/ALBUTEROL 2.5MG INH SOL UD 3ML (DUONEB)(J7620) NEB SCH ×6 (02:07→20:59)
[2019-02-26] MEDS: LevoFLOXacin 500 MG TABLET PO SCH (05:32)
[2019-02-26] MEDS: IBUPROFEN 400 MG TAB PO PRN ×3 (05:32→20:30)
[2019-02-26 06:00] VITALS: BP 102/55
[2019-02-26 07:02] LABS: BLOOD UREA NITROGEN 23 MG/DL (7-18); CALCIUM LEVEL 7.2 MG/DL (8.5-10.1); CARBON DIOXIDE LEVEL 29 MEQ/L (21-32); CHLORIDE LEVEL 106 MEQ/L (98-107); GLOMERULAR FILTRATION RATE > 60.0 (>60); GLUCOSE, FASTING 95 MG/DL (70-100); POTASSIUM SERUM 4.3 MEQ/L (3.5-5.1); SODIUM LEVEL 141 MEQ/L (136-145)
[2019-02-26] MEDS: SYMBICORT 80/4.5MCG INHALER 6GM INH SCH ×2 (07:21→20:00)
[2019-02-26] MEDS: MOM 30ML SUSPENSION UDC PO SCH ×2 (08:26→20:30)
[2019-02-26] MEDS: clonazePAM 1 MG TAB PO SCH ×3 (08:26→20:30)
[2019-02-26] MEDS: MIRALAX *UNIT DOSE* 17GM PACKET PO SCH ×2 (08:26→20:30)
[2019-02-26] MEDS: GABAPENTIN 400 MG CAP PO SCH ×3 (08:26→20:30)
[2019-02-26] MEDS: PREGABALIN 100 MG CAP (LYRICA) PO SCH ×3 (08:26→20:30)
[2019-02-26] MEDS: ENOXAPARIN 40 MG/0.4 ML SYRINGE (J1650) SC SCH (08:27)
[2019-02-26] MEDS: BUPRENORPHINE/NALOXONE 8-2MG SUBLINGUAL TABLET(SUBOXONE) SL SCH ×2 (08:27→20:29)
[2019-02-26] MEDS: predniSONE 20 MG TAB PO SCH (08:27)
[2019-02-26] MEDS: PANTOPRAZOLE 40MG TAB (PROTONIX) PO SCH (08:27)
[2019-02-26] MEDS: SENNA 8.6 MG TAB (SENOKOT) PO PRN (08:34)
[2019-02-26] MEDS: ACETAMINOPHEN TAB 650MG DOSE (2X325MG) PO PRN ×2 (08:35→15:28)
--- NOTE | 2019-02-26 10:54 | IPNPDOC ---
Date Seen The patient was seen on 02/26/19. Progress Note Subjective Chief Complaint/HPI: does not ambulate outside the room due to her xenophobia. Complains of abdominal pain and distension. had small bm yesterday solid, but requesint more .She has not had any since admission. She feels very bloated and uncomfortable.Still has cough and wheezing. No fever or chills, no hemoptysis. Says her appetite has really improved in the hospital. Objective Objective Physical Examination vitals: pls see below General Exam: Positive: Alert, Cooperative, No Acute Distress Eye Exam: Positive: PERRLA ENT Exam: Positive: Atraumatic, Mucous membr. moist/pink Chest Exam: Positive: Rales, Wheezing, Diminished, Other (coarse breath sounds. ) Heart Exam: Positive: Rate Normal, Normal S1, Normal S2 Abdomen Exam: Positive: BS Hyperactive, Soft, Tenderness (there is diffuse tenderness present but no guarding or rigidity. 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 She was found to have acute hypoxic hypercarbic respiratory failure thought to be due to Bronchiolitis / bronchiectasis with asthma exacerbation. Acute Hypoxic, Hypercarbic Respiratory Failure 2/2 Bronchiolitis / bronchiectasis in a patient with Hx of Asthma and being on chronic narcotics, benzos and sedatives CT Chest noted Resp panel negative Prednisone, Levaquin, Inhaler therapy, and Serial Nebs as ordered Pulmonary input appreciated We will cont to monitor Has been weaned off oxygen Bronchiolitis/ Bronchiectasis Will need further work up as outpatient follow up with pulmonary. Pulmonary nodule with hilar lymphadenopathy follow up with pulmonary as outpatient. Congenital Intestinal lymphangiectasia with complex enteric protein-losing enter opathy. CT Abd/Pel noted on admission with no acute changes when compared to 08/01/2018 Patient tolerating a PO diet however states that she feels bloated and swollen. Chronic abdominal pain well controlled, and at baseline Patient has yet to have a BM but passing flatus however refusing bowel meds. Her albumin better than usual at 2.0 Insists that she is having a worsening of her disease which happens when ever she is sick. will give 2 days of lasix and albumin for diuresis. Patient encouraged to intake a high protein diet GI Dr. Goldberg consulted. History of hepatitis C. History of IVDU. Patient has had no treatment in the past. HIV negative. Hep A and B are negative from 06/2018 admission Follow up as outpatient for treatment once medically stable Anxiety/depression Cont Seroquel. continue clonazepam and gabapentin. History of IV drug use On Suboxone for 8 years. urinary incontinence/Bladder Prolapse Patient states Hx of Bladder Prolapse will give outpatient referral to urology . Discussed with Dr Griffith. History of post-traumatic stress disorder (PTSD). continue home meds. Smoking cessation discussed with patient. Constipation No bowel movement for 2 weeks will start aggressive bowel regimen Deep vein thrombosis (DVT) prophylaxis Lovenox SC Dispo--pending clinical improvement. Plan/VTE VTE Prophylaxis Ordered?: Yes disposition: pending clinical improvement. await GI consult recommendations. VS, I&O, 24H, Fishbone Vital Signs/I&O Vital Signs Date Time Temp Pulse Resp B/P (MAP) Pulse Ox O2 Delivery O2 Flow Rate FiO2 02/26/19 06:00 98.6 110 19 102/55 (71) 91 02/24/19 06:00 1.0 02/20/19 08:52 Nasal Cannula I&O- Last 24 Hours up to 6 AM 02/26/19 06:00 Intake Total 1550 ml Output Total 1240 ml Balance 310 ml Laboratory Data 24H LABS Laboratory Tests 2 02/26/19 05:50: Anion Gap 6L, Glomerular Filtration Rate > 60.0, Blood Urea Nitrogen 23H, Creatinine 0.70, Sodium Level 141, Potassium Level 4.3, Chloride Level 106, Carbon Dioxide Level 29, Calcium Level 7.2L CBC/BMP Laboratory Tests 02/26/19 05:50 Calcium Level 7.2 L Microbiology Microbiology 02/19/19 Respiratory Virus Panel (PCR) ([facility]) - Final, Complete 02/19/19 Gram Stain - Final, Complete 02/19/19 Sputum Culture - Final, Complete Yeast Like Organism ALINE HOEP MD Feb 26, 2019 10:54
[2019-02-26] MEDS ORDERED: MAGNESIUM CITRATE 300 ML BTL PO ONE (11:00)
--- NOTE | 2019-02-26 11:27 | REP ---
KUB: Single view. History: Abdomen distension. Comparison study: November 25, 2013. Findings: There is a large amount of formed stool throughout the colon including distally consistent with obstipation. Umbilical jewelry is noted. Psoas margins are symmetric. No pathologic calcification or organomegaly is seen. Impression: Large amount of formed stool throughout the colon. Constipation pattern. Electronically Signed by Ariel Rodriges MD 02/26/2019 01:20 P
[2019-02-26] MEDS: SENOKOT S TAB PO SCH ×2 (12:09→20:29)
[2019-02-26 14:00] VITALS: BP 89/52
[2019-02-26] MEDS: QUEtiapine FUMARATE 200 MG TAB PO SCH (20:30)
[2019-02-26 22:00] VITALS: BP 93/55
[2019-02-27] MEDS: ACETAMINOPHEN TAB 650MG DOSE (2X325MG) PO PRN ×2 (01:37→21:02)
[2019-02-27] MEDS: IPRATROPIUM 0.5MG/ALBUTEROL 2.5MG INH SOL UD 3ML (DUONEB)(J7620) NEB SCH ×6 (03:57→20:00)
[2019-02-27] MEDS: LevoFLOXacin 500 MG TABLET PO SCH (05:52)
[2019-02-27 06:00] VITALS: BP 101/57
[2019-02-27] MEDS: SYMBICORT 80/4.5MCG INHALER 6GM INH SCH ×2 (07:46→20:30)
[2019-02-27] MEDS: ENOXAPARIN 40 MG/0.4 ML SYRINGE (J1650) SC SCH ×2 (09:00→09:58)
[2019-02-27] MEDS: PREGABALIN 100 MG CAP (LYRICA) PO SCH ×3 (09:56→21:00)
[2019-02-27] MEDS: MOM 30ML SUSPENSION UDC PO SCH ×2 (09:57→21:02)
[2019-02-27] MEDS: MIRALAX *UNIT DOSE* 17GM PACKET PO SCH ×2 (09:57→21:02)
[2019-02-27] MEDS: SENOKOT S TAB PO SCH ×2 (09:57→21:00)
[2019-02-27] MEDS: predniSONE 20 MG TAB PO SCH (09:57)
[2019-02-27] MEDS: BUPRENORPHINE/NALOXONE 8-2MG SUBLINGUAL TABLET(SUBOXONE) SL SCH ×2 (09:57→21:02)
[2019-02-27] MEDS: PANTOPRAZOLE 40MG TAB (PROTONIX) PO SCH (09:57)
[2019-02-27] MEDS: GABAPENTIN 400 MG CAP PO SCH ×3 (09:57→21:00)
[2019-02-27] MEDS: clonazePAM 1 MG TAB PO SCH ×3 (09:57→21:01)
--- NOTE | 2019-02-27 11:54 | IPNPDOC ---
Date Seen The patient was seen on 02/27/19. Progress Note Subjective: c/o constipation. repeat axr: moderate stool/constipation. pt requesting enema and higher dose of mg citrate, and open to golytely if no bm. does not ambulate outside the room due to her xenophobia. Complains of abdominal pain and distension. Objective Objective Physical Examination vitals: pls see below General Exam: Positive: Alert, Cooperative, No Acute Distress Eye Exam: Positive: PERRLA ENT Exam: Positive: Atraumatic, Mucous membr. moist/pink Chest Exam: Positive: Rales, Wheezing, Diminished, Other (coarse breath sounds. ) Heart Exam: Positive: Rate Normal, Normal S1, Normal S2 Abdomen Exam: Positive: BS Hyperactive, Soft, Tenderness (there is diffuse tenderness present but no guarding or rigidity. 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 She was found to have acute hypoxic hypercarbic respiratory failure thought to be due to Bronchiolitis / bronchiectasis with asthma exacerbation. Acute Hypoxic, Hypercarbic Respiratory Failure 2/2 Bronchiolitis / bronchiectasis in a patient with Hx of Asthma and being on chronic narcotics, benzos and sedatives CT Chest noted Resp panel negative Prednisone, Levaquin, Inhaler therapy, and Serial Nebs as ordered Pulmonary input appreciated We will cont to monitor Has been weaned off oxygen Bronchiolitis/ Bronchiectasis Will need further work up as outpatient follow up with pulmonary. Pulmonary nodule with hilar lymphadenopathy follow up with pulmonary as outpatient. Congenital Intestinal lymphangiectasia with complex enteric protein-losing enteropathy. CT Abd/Pel noted on admission with no acute changes when compared to 08/01/2018 Patient tolerating a PO diet however states that she feels bloated and swollen. Chronic abdominal pain well controlled, and at baseline Patient has yet to have a BM but passing flatus however refusing bowel meds. Her albumin better than usual at 2.0 Insists that she is having a worsening of her disease which happens when ever she is sick. will give 2 days of lasix and albumin for diuresis. Patient encouraged to intake a high protein diet GI Dr. Goldberg consulted. Fecal impaction/chronic constipation mg citrate senokot fleet History of hepatitis C. History of IVDU. Patient has had no treatment in the past. HIV negative. Hep A and B are negative from 06/2018 admission Follow up as outpatient for treatment once medically stable Anxiety/depression Cont Seroquel. continue clonazepam and gabapentin. History of IV drug use On Suboxone for 8 years. urinary incontinence/Bladder Prolapse Patient states Hx of Bladder Prolapse will give outpatient referral to urology . Discussed with Dr Griffith. History of post-traumatic stress disorder (PTSD). continue home meds. Smoking cessation discussed with patient. Constipation No bowel movement for 2 weeks will start aggressive bowel regimen Deep vein thrombosis (DVT) prophylaxis Lovenox SC Dispo--pending clinical improvement. Plan/VTE VTE Prophylaxis Ordered?: Yes disposition: pending clinical improvement. await GI consult recommendations. VS, I&O, 24H, Fishbone Vital Signs/I&O Vital Signs Date Time Temp Pulse Resp B/P (MAP) Pulse Ox O2 Delivery O2 Flow Rate FiO2 02/27/19 06:00 97.8 107 19 101/57 (72) 92 02/24/19 06:00 1.0 I&O- Last 24 Hours up to 6 AM 02/27/19 06:00 Intake Total 1370 ml Output Total 1220 ml Balance 150 ml Laboratory Data Microbiology Microbiology 02/19/19 Respiratory Virus Panel (PCR) ([facility]) - Final, Complete 02/19/19 Gram Stain - Final, Complete 02/19/19 Sputum Culture - Final, Complete Yeast Like Organism ALINE HOPE MD Feb 27, 2019 11:05
[2019-02-27] MEDS ORDERED: FLEET ENEMA PR ONE (12:00)
[2019-02-27] MEDS ORDERED: MAGNESIUM CITRATE 300 ML BTL PO ONE (12:00)
[2019-02-27] MEDS ORDERED: GOLYTELY SOLN 4000 ML BTL PO ONE (13:00)
[2019-02-27 14:00] VITALS: BP 95/60
[2019-02-27] MEDS: QUEtiapine FUMARATE 200 MG TAB PO SCH (21:01)
[2019-02-27 22:00] VITALS: BP 112/69
[2019-02-28] MEDS: IPRATROPIUM 0.5MG/ALBUTEROL 2.5MG INH SOL UD 3ML (DUONEB)(J7620) NEB SCH ×6 (03:08→18:22)
[2019-02-28] MEDS: LevoFLOXacin 500 MG TABLET PO SCH (05:25)
[2019-02-28 06:00] VITALS: BP 104/66
[2019-02-28] MEDS: ENOXAPARIN 40 MG/0.4 ML SYRINGE (J1650) SC SCH (07:22)
[2019-02-28] MEDS: SYMBICORT 80/4.5MCG INHALER 6GM INH SCH ×2 (07:28→18:23)
[2019-02-28] MEDS: clonazePAM 1 MG TAB PO SCH ×3 (09:02→21:36)
[2019-02-28] MEDS: IBUPROFEN 400 MG TAB PO PRN (09:02)
[2019-02-28] MEDS: predniSONE 20 MG TAB PO SCH (09:02)
[2019-02-28] MEDS: BUPRENORPHINE/NALOXONE 8-2MG SUBLINGUAL TABLET(SUBOXONE) SL SCH ×2 (09:02→23:31)
[2019-02-28] MEDS: SENOKOT S TAB PO SCH ×2 (09:08→21:40)
[2019-02-28] MEDS: MIRALAX *UNIT DOSE* 17GM PACKET PO SCH ×2 (09:08→21:40)
[2019-02-28] MEDS: PANTOPRAZOLE 40MG TAB (PROTONIX) PO SCH (09:08)
[2019-02-28] MEDS: MOM 30ML SUSPENSION UDC PO SCH ×2 (09:08→21:40)
[2019-02-28] MEDS: PREGABALIN 100 MG CAP (LYRICA) PO SCH ×3 (09:08→21:36)
[2019-02-28] MEDS: GABAPENTIN 400 MG CAP PO SCH ×3 (09:08→21:00)
--- NOTE | 2019-02-28 09:26 | REP ---
KUB ABDOMEN AND PELVIS: Two KUB films of abdomen and pelvis performed. Mild air is seen throughout the colon with decreased amount of fecal material. There is mild distension of multiple small bowel loops in the abdomen with associated mucosal fold thickening. There is no evidence of small bowel obstruction. No abnormal calcifications are seen. Visualized osseous structures are unremarkable. IMPRESSION: Decreased amount of fecal material. Mild dilatation of multiple small bowel loops which also demonstrate mucosal fold thickening. No evidence of obstruction. Electronically Signed by Aleks Velarde MD 02/28/2019 03:11 P
[2019-02-28 10:32] LABS: BASO % 0.2 % (0.0-1.0); EOS # 0.1 10^3/uL (0.0-0.50); EOS % 1.2 % (0.0-3.0); HEMATOCRIT 39.2 % (36.0-47.0); HEMOGLOBIN 12.3 g/dl (12.0-15.5); LYMPH # 0.7 10^3/uL (1.5-4.5); LYMPH % 11.2 % (24.0-44.0); MEAN CORPUSCULAR HEMOGLOBIN 25.8 pg (27.0-33.0); MEAN CORPUSCULAR HGB CONC 31.4 g/dl (32.0-36.5); MEAN CORPUSCULAR VOLUME 82.2 fl (80.0-96.0); MONO # 0.7 10^3/uL (0.0-0.8); MONO % 10.1 % (0.0-5.0); NEUTROPHILS # 4.9 10^3/uL (1.8-7.7); NEUTROPHILS % 76.2 % (36.0-66.0); PLATELET COUNT, AUTOMATED 286 10^3/uL (150-450); RED BLOOD COUNT 4.77 10^6/uL (4.00-5.40); WHITE BLOOD COUNT 6.5 10^3/uL (4.0-10.0)
[2019-02-28 10:42] LABS: C REACTIVE PROTEIN QUANTITATIV 0.84 MG/DL (0.00-0.30); MAGNESIUM LEVEL 2.1 MG/DL (1.8-2.4)
[2019-02-28 10:54] LABS: ERYTHROCYTE SEDIMENTATION RATE 2 mm/hr (0-20)
[2019-02-28] MEDS ORDERED: MAGNESIUM CITRATE 300 ML BTL PO ONE (11:00)
[2019-02-28] MEDS ORDERED: FLEET OIL RETENTION ENEMA PR ONE (11:00)
[2019-02-28 11:12] LABS: ALBUMIN 1.9 GM/DL (3.2-5.2); ALT/SGPT 101 U/L (12-78); BILIRUBIN,TOTAL < 0.1 MG/DL (0.2-1.0); BLOOD UREA NITROGEN 19 MG/DL (7-18); CARBON DIOXIDE LEVEL 29 MEQ/L (21-32); CHLORIDE LEVEL 109 MEQ/L (98-107); CREATININE FOR GFR 0.51 MG/DL (0.55-1.30); GLOMERULAR FILTRATION RATE > 60.0 (>60); GLUCOSE, FASTING 108 MG/DL (70-100); SODIUM LEVEL 143 MEQ/L (136-145); TOTAL PROTEIN 3.8 GM/DL (6.4-8.2)
[2019-02-28] MEDS ORDERED: MILK120011 PO (12:27)
[2019-02-28] MEDS ORDERED: PEG1POW PO (12:27)
[2019-02-28] MEDS ORDERED: FLEEENE4 PR (12:27)
[2019-02-28] MEDS ORDERED: SENO8.6T10 PO (12:27)
[2019-02-28] MEDS ORDERED: SYMB80INH INH (12:32)
[2019-02-28] MEDS ORDERED: ALBU17IN2 INH (12:32)
--- NOTE | 2019-02-28 12:40 | IPNPDOC ---
Date Seen The patient was seen on 02/28/19. Progress Note Subjective: pt admits to not having a bowel movement for three weeks prior to coming into the hospital. repeat axr: IMPROVED fecal impaction c/o watery stools after golytely yesterday. tolerating po diet without nausea. does not ambulate outside the room due to her xenophobia. Complains of abdominal pain and distension. Objective Objective Physical Examination vitals: pls see below General Exam: Positive: Alert, Cooperative, No Acute Distress Eye Exam: Positive: PERRLA ENT Exam: Positive: Atraumatic, Mucous membr. moist/pink Chest Exam: Positive: Rales, Wheezing, Diminished, Other (coarse breath sounds. ) Heart Exam: Positive: Rate Normal, Normal S1, Normal S2 Abdomen Exam: Positive: BS Hyperactive, Soft, Tenderness (there is diffuse tenderness present but no guarding or rigidity. 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 She was found to have acute hypoxic hypercarbic respiratory failure thought to be due to Bronchiolitis / bronchiectasis with asthma exacerbation. Acute Hypoxic, Hypercarbic Respiratory Failure 2/2 Bronchiolitis / bron chiectasis in a patient with Hx of Asthma and being on chronic narcotics, benzos and sedatives CT Chest noted Resp panel negative Prednisone, Levaquin, Inhaler therapy, and Serial Nebs as ordered Pulmonary input appreciated We will cont to monitor Has been weaned off oxygen Bronchiolitis/ Bronchiectasis Will need further work up as outpatient follow up with pulmonary. Pulmonary nodule with hilar lymphadenopathy follow up with pulmonary as outpatient. Congenital Intestinal lymphangiectasia with complex enteric protein-losing enteropathy. CT Abd/Pel noted on admission with no acute changes when compared to 08/01/2018 Patient tolerating a PO diet however states that she feels bloated and swollen. Chronic abdominal pain well controlled, and at baseline Patient has yet to have a BM but passing flatus however refusing bowel meds. Her albumin better than usual at 2.0 Insists that she is having a worsening of her disease which happens when ever she is sick. will give 2 days of lasix and albumin for diuresis. Patient encouraged to intake a high protein diet GI Dr. Deras consulted. Fecal impaction/chronic constipation mg citrate senokot fleet History of hepatitis C. History of IVDU. Patient has had no treatment in the past. HIV negative. Hep A and B are negative from 06/2018 admission Follow up as outpatient for treatment once medically stable Anxiety/depression Cont Seroquel. continue clonazepam and gabapentin. History of IV drug use On Suboxone for 8 years. urinary incontinence/Bladder Prolapse Patient states Hx of Bladder Prolapse will give outpatient referral to urology . Discussed with Dr Griffith. History of post-traumatic stress disorder (PTSD). continue home meds. Smoking cessation discussed with patient. fecal impactionConstipation No bowel movement for 3 weeks on aggressive bowel regimen gi consulted dr. deras: enemas Deep vein thrombosis (DVT) prophylaxis Lovenox SC Dispo--pending clinical improvement. Plan/VTE VTE Prophylaxis Ordered?: Yes disposition: pending clinical improvement. VS, I&O, 24H, Fishbone Vital Signs/I&O Vital Signs Date Time Temp Pulse Resp B/P (MAP) Pulse Ox O2 Delivery O2 Flow Rate FiO2 02/28/19 06:00 96.5 87 16 104/66 (79) 92 02/24/19 06:00 1.0 I&O- Last 24 Hours up to 6 AM 02/28/19 06:00 Intake Total 2410 ml Output Total 450 ml Balance 1960 ml Laboratory Data 24H LABS Laboratory Tests 2 02/28/19 10:06: Immature Granulocyte % (Auto) 1.1, White Blood Count 6.5, Red Blood Count 4.77, Hemoglobin 12.3, Hematocrit 39.2, Mean Corpuscular Volume 82.2, Mean Corpuscular Hemoglobin 25.8L, Mean Corpuscular Hemoglobin Concent 31.4L, Red Cell Distribution Width 19.7H, Platelet Count 286, Neutrophils (%) (Auto) 76.2H, Lymphocytes (%) (Auto) 11.2L, Monocytes (%) (Auto) 10.1H, Eosinophils (%) (Auto) 1.2, Basophils (%) (Auto) 0.2, Neutrophils # (Auto) 4.9, Lymphocytes # (Auto) 0.7L, Monocytes # (Auto) 0.7, Eosinophils # (Auto) 0.1, Basophils # (Auto) 0.0, Nucleated Red Blood Cells % (auto) 0.0, Erythrocyte Sedimentation Rate 2, Anion Gap 5L, Glomerular Filtration Rate > 60.0, Lactic Acid Level 1.6, Blood Urea Nitrogen 19H, Creatinine 0.51L, Sodium Level 143, Potassium Level 4.0, Chloride Level 109H, Carbon Dioxide Level 29, Calcium Level 7.0L, Aspartate Amino Transf (AST/SGOT) 51H, Alanine Aminotransferase (ALT/SGPT) 101H, Alkaline Phosphatase 72, Total Bilirubin < 0.1L, Total Protein 3.8L, Albumin 1.9L, Magnesium Level 2.1, C-Reactive Protein, Quantitative 0.84H, Albumin/Globulin Ratio 1.00 CBC/BMP Laboratory Tests 02/28/19 10:06 Red Blood Count 4.77, Mean Corpuscular Volume 82.2, Mean Corpuscular Hemoglobin 25.8 L, Mean Corpuscular Hemoglobin Concent 31.4 L, Red Cell Distribution Width 19.7 H, Neutrophils (%) (Auto) 76.2 H, Lymphocytes (%) (Auto) 11.2 L, Monocytes (%) (Auto) 10.1 H, Eosinophils (%) (Auto) 1.2, Basophils (%) (Auto) 0.2, Neutrophils # (Auto) 4.9, Lymphocytes # (Auto) 0.7 L, Monocytes # (Auto) 0.7, Eosinophils # (Auto) 0.1, Basophils # (Auto) 0.0, Calcium Level 7.0 L, Aspartate Amino Transf (AST/SGOT) 51 H, Alanine Aminotransferase (ALT/SGPT) 101 H, Alkaline Phosphatase 72, Total Bilirubin < 0.1 L, Total Protein 3.8 L, Albumin 1.9 L Microbiology Microbiology 02/19/19 Respiratory Virus Panel (PCR) ([facility]) - Final, Complete 02/19/19 Gram Stain - Final, Complete 02/19/19 Sputum Culture - Final, Complete Yeast Like Organism ALINE HOPE MD Feb 28, 2019 12:40
[2019-02-28 14:00] VITALS: BP 104/64
[2019-02-28] MEDS: FLEET ENEMA PR SCH ×2 (21:00→23:30)
[2019-02-28] MEDS: QUEtiapine FUMARATE 200 MG TAB PO SCH (21:36)
[2019-02-28] MEDS: ACETAMINOPHEN TAB 650MG DOSE (2X325MG) PO PRN (21:41)
[2019-02-28 22:00] VITALS: BP 100/64
[2019-03-01] MEDS: IPRATROPIUM 0.5MG/ALBUTEROL 2.5MG INH SOL UD 3ML (DUONEB)(J7620) NEB SCH ×7 (04:00→23:48)
[2019-03-01 06:00] VITALS: BP 103/73
[2019-03-01] MEDS: SYMBICORT 80/4.5MCG INHALER 6GM INH SCH ×2 (07:42→20:15)
[2019-03-01] MEDS: ENOXAPARIN 40 MG/0.4 ML SYRINGE (J1650) SC SCH (07:46)
[2019-03-01] MEDS: FLEET ENEMA PR SCH ×2 (07:46→22:15)
[2019-03-01] MEDS ORDERED: FLEET OIL RETENTION ENEMA PR ONE (09:00)
[2019-03-01] MEDS ORDERED: MAGNESIUM CITRATE 300 ML BTL PO ONE (09:00)
[2019-03-01 09:17] LABS: BLOOD UREA NITROGEN 15 MG/DL (7-18); CALCIUM LEVEL 7.2 MG/DL (8.5-10.1); CARBON DIOXIDE LEVEL 29 MEQ/L (21-32); CHLORIDE LEVEL 110 MEQ/L (98-107); CREATININE FOR GFR 0.41 MG/DL (0.55-1.30); GLOMERULAR FILTRATION RATE > 60.0 (>60); GLUCOSE, FASTING 98 MG/DL (70-100); POTASSIUM SERUM 4.7 MEQ/L (3.5-5.1); SODIUM LEVEL 143 MEQ/L (136-145)
[2019-03-01] MEDS: MIRALAX *UNIT DOSE* 17GM PACKET PO SCH ×2 (10:11→22:14)
[2019-03-01] MEDS: MOM 30ML SUSPENSION UDC PO SCH ×2 (10:11→22:14)
[2019-03-01] MEDS: SENOKOT S TAB PO SCH ×2 (10:12→22:14)
[2019-03-01] MEDS: PREGABALIN 100 MG CAP (LYRICA) PO SCH ×3 (10:12→21:00)
[2019-03-01] MEDS: PANTOPRAZOLE 40MG TAB (PROTONIX) PO SCH (10:12)
[2019-03-01] MEDS: GABAPENTIN 400 MG CAP PO SCH ×3 (10:12→22:14)
[2019-03-01] MEDS: clonazePAM 1 MG TAB PO SCH ×3 (10:12→22:13)
[2019-03-01] MEDS: predniSONE 20 MG TAB PO SCH (10:12)
[2019-03-01] MEDS: BUPRENORPHINE/NALOXONE 8-2MG SUBLINGUAL TABLET(SUBOXONE) SL SCH ×2 (10:29→22:15)
--- NOTE | 2019-03-01 12:02 | IPNPDOC ---
Date Seen The patient was seen on 03/01/19. Progress Note Subjective: Had one bowel movement yesterday small solid but none overnight. abdominal distension is improved, but pt is apprehensive about discharge home. pt admits to not having a bowel movement for three weeks prior to coming into the hospital. repeat axr: IMPROVED fecal impaction c/o watery stools after golytely yesterday. tolerating po diet without nausea. does not ambulate outside the room due to her xenophobia. Objective Objective Physical Examination vitals: pls see below General Exam: Positive: Alert, Cooperative, No Acute Distress Eye Exam: Positive: PERRLA ENT Exam: Positive: Atraumatic, Mucous membr. moist/pink Chest Exam: Positive: Rales, Wheezing, Diminished, Other (coarse breath sounds. ) Heart Exam: Positive: Rate Normal, Normal S1, Normal S2 Abdomen Exam: Positive: BS Hyperactive, Soft, Tenderness (there is diffuse tenderness present but no guarding or rigidity. 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 She was found to have acute hypoxic hypercarbic respiratory failure thought to be due to Bronchiolitis / bronchiectasis with asthma exacerbation. Acute Hypoxic, Hypercarbic Respiratory Failure 2/2 Bronchiolitis / bro nchiectasis in a patient with Hx of Asthma and being on chronic narcotics, benzos and sedatives CT Chest noted Resp panel negative Prednisone, Levaquin, Inhaler therapy, and Serial Nebs as ordered Pulmonary input appreciated We will cont to monitor Has been weaned off oxygen Bronchiolitis/ Bronchiectasis Will need further work up as outpatient follow up with pulmonary. Pulmonary nodule with hilar lymphadenopathy follow up with pulmonary as outpatient. Congenital Intestinal lymphangiectasia with complex enteric protein-losing enteropathy. CT Abd/Pel noted on admission with no acute changes when compared to 08/01/2018 Patient tolerating a PO diet however states that she feels bloated and swollen. Chronic abdominal pain well controlled, and at baseline Patient has yet to have a BM but passing flatus however refusing bowel meds. Her albumin better than usual at 2.0 Insists that she is having a worsening of her disease which happens when ever she is sick. will give 2 days of lasix and albumin for diuresis. Patient encouraged to intake a high protein diet GI Dr. Deras consulted. Fecal impaction/chronic constipation mg citrate senokot fleet enema minimal improvement. History of hepatitis C. History of IVDU. Patient has had no treatment in the past. HIV negative. Hep A and B are negative from 06/2018 admission Follow up as outpatient for treatment once medically stable Anxiety/depression Cont Seroquel. continue clonazepam and gabapentin. History of IV drug use On Suboxone for 8 years. urinary incontinence/Bladder Prolapse Patient states Hx of Bladder Prolapse will give outpatient referral to urology . Discussed with Dr Griffith. History of post-traumatic stress disorder (PTSD). continue home meds. Smoking cessation discussed with patient. fecal impactionConstipation No bowel movement for 3 weeks on aggressive bowel regimen gi consulted dr. deras: enemas Deep vein thrombosis (DVT) prophylaxis Lovenox SC Dispo--pending clinical improvement. Plan/VTE VTE Prophylaxis Ordered?: Yes disposition: dc plans monday. VS, I&O, 24H, Fishbone Vital Signs/I&O Vital Signs Date Time Temp Pulse Resp B/P (MAP) Pulse Ox O2 Delivery O2 Flow Rate FiO2 03/01/19 06:00 98.6 85 18 103/73 (83) 94 02/24/19 06:00 1.0 I&O- Last 24 Hours up to 6 AM 03/01/19 06:00 Intake Total 2460 ml Output Total 1150 ml Balance 1310 ml Laboratory Data 24H LABS Laboratory Tests 2 03/01/19 08:31: Anion Gap 4L, Glomerular Filtration Rate > 60.0, Blood Urea Nitrogen 15, Creatinine 0.41L, Sodium Level 143, Potassium Level 4.7, Chloride Level 110H, Carbon Dioxide Level 29, Calcium Level 7.2L CBC/BMP Laboratory Tests 03/01/19 08:31 Calcium Level 7.2 L Microbiology Microbiology 02/19/19 Respiratory Virus Panel (PCR) ([facility]) - Final, Complete 02/19/19 Gram Stain - Final, Complete 02/19/19 Sputum Culture - Final, Complete Yeast Like Organism ALINE HOPE MD Mar 01, 2019 12:02
[2019-03-01 14:00] VITALS: BP 98/65
[2019-03-01 22:00] VITALS: BP 110/63
[2019-03-01] MEDS: QUEtiapine FUMARATE 200 MG TAB PO SCH (22:15)
[2019-03-02] MEDS: IPRATROPIUM 0.5MG/ALBUTEROL 2.5MG INH SOL UD 3ML (DUONEB)(J7620) NEB SCH ×6 (03:36→23:57)
[2019-03-02 06:00] VITALS: BP 107/59
[2019-03-02] MEDS: SYMBICORT 80/4.5MCG INHALER 6GM INH SCH ×2 (07:07→18:16)
[2019-03-02] MEDS ORDERED: FLEET OIL RETENTION ENEMA PR PRN (08:15)
[2019-03-02] MEDS ORDERED: MAGNESIUM CITRATE 300 ML BTL PO ONE (08:45)
--- NOTE | 2019-03-02 08:58 | REP ---
Clinical: Abdominal pain and distension. Technique: Two supine views of the abdomen and pelvis. Findings: Mild fecal stasis cannot be excluded. No evidence for bowel obstruction or perforation. No organomegaly. No abnormal calcifications. Skeletal structures are intact. Impression: Mild fecal stasis. Electronically Signed by Larry Payton MD 03/02/2019 08:50 A
[2019-03-02] MEDS: ENOXAPARIN 40 MG/0.4 ML SYRINGE (J1650) SC SCH (09:00)
[2019-03-02] MEDS: GOLYTELY SOLN 4000 ML BTL PO ONE ×2 (09:00→20:00)
[2019-03-02 09:14] LABS: BLOOD UREA NITROGEN 16 MG/DL (7-18); CALCIUM LEVEL 7.9 MG/DL (8.5-10.1); CARBON DIOXIDE LEVEL 29 MEQ/L (21-32); CHLORIDE LEVEL 109 MEQ/L (98-107); CREATININE FOR GFR 0.53 MG/DL (0.55-1.30); GLOMERULAR FILTRATION RATE > 60.0 (>60); GLUCOSE, FASTING 145 MG/DL (70-100); MAGNESIUM LEVEL 2.4 MG/DL (1.8-2.4); POTASSIUM SERUM 4.3 MEQ/L (3.5-5.1); SODIUM LEVEL 144 MEQ/L (136-145)
[2019-03-02] MEDS: predniSONE 20 MG TAB PO SCH (09:35)
[2019-03-02] MEDS: GABAPENTIN 400 MG CAP PO SCH ×3 (09:35→20:22)
[2019-03-02] MEDS: PANTOPRAZOLE 40MG TAB (PROTONIX) PO SCH (09:35)
[2019-03-02] MEDS: PREGABALIN 100 MG CAP (LYRICA) PO SCH ×3 (09:35→21:00)
[2019-03-02] MEDS: clonazePAM 1 MG TAB PO SCH ×3 (09:35→20:22)
[2019-03-02] MEDS: SENOKOT S TAB PO SCH ×2 (09:36→20:22)
[2019-03-02] MEDS: MOM 30ML SUSPENSION UDC PO SCH ×2 (09:36→20:22)
[2019-03-02] MEDS: MIRALAX *UNIT DOSE* 17GM PACKET PO SCH ×2 (09:36→20:23)
[2019-03-02] MEDS: BUPRENORPHINE/NALOXONE 8-2MG SUBLINGUAL TABLET(SUBOXONE) SL SCH ×2 (09:36→20:21)
--- NOTE | 2019-03-02 13:37 | IPNPDOC ---
Date Seen The patient was seen on 03/02/19. Progress Note Subjective: PT c/o feet edema, and only had one bm yesterday. She is worried about going home today as she still continues to have abdominal discomfort with distension despite multiple bowel regimens. pt admits to not having a bowel movement for three weeks prior to coming into the hospital. repeat axr: IMPROVED fecal impaction c/o watery stools after golytely yesterday. tolerating po diet without nausea. does not ambulate outside the room due to her xenophobia. Objective Objective Physical Examination vitals: pls see below General Exam: Positive: Alert, Cooperative, No Acute Distress Eye Exam: Positive: PERRLA ENT Exam: Positive: Atraumatic, Mucous membr. moist/pink Chest Exam: Positive: Rales, Wheezing, Diminished, Other (coarse breath sounds. ) Heart Exam: Positive: Rate Normal, Normal S1, Normal S2 Abdomen Exam: Positive: BS Hyperactive, Soft, Tenderness (there is diffuse tenderness present but no guarding or rigidity. 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 She was found to have acute hypoxic hypercarbic respiratory failure thought to be due to Bronchiolitis / bronchiectasis with asthma exacerbation. Acute Hypoxic, Hypercarbic Respiratory Failure 2/2 Bronchiolitis / bronchiectasis in a patient with Hx of Asthma and being on chronic narcotics, benzos and sedatives CT Chest noted Resp panel negative Prednisone, Levaquin, Inhaler therapy, and Serial Nebs as ordered Pulmonary input appreciated We will cont to monitor Has been weaned off oxygen Bronchiolitis/ Bronchiectasis Will need further work up as outpatient follow up with pulmonary. Pulmonary nodule with hilar lymphadenopathy follow up with pulmonary as outpatient. Congenital Intestinal lymphangiectasia with complex enteric protein-losing enteropathy. CT Abd/Pel noted on admission with no acute changes when compared to 08/01/2018 Patient tolerating a PO diet however states that she feels bloated and swollen. Chronic abdominal pain well controlled, and at baseline Patient has yet to have a BM but passing flatus however refusing bowel meds. Her albumin better than usual at 2.0 Insists that she is having a worsening of her disease which happens when ever she is sick. will give 2 days of lasix and albumin for diuresis. Patient encouraged to intake a high protein diet GI Dr. Deras consulted. Fecal impaction/chronic constipation mg citrate senokot fleet enema minimal improvement. History of hepatitis C. History of IVDU. Patient has had no treatment in the past. HIV negative. Hep A and B are negative from 06/2018 admission Follow up as outpatient for treatment once medically stable Anxiety/depression Cont Seroquel. continue clonazepam and gabapentin. History of IV drug use On Suboxone for 8 years. urinary incontinence/Bladder Prolapse Patient states Hx of Bladder Prolapse will give outpatient referral to urology . Discussed with Dr Griffith. History of post-traumatic stress disorder (PTSD). continue home meds. Smoking cessation discussed with patient. fecal impactionConstipation No bowel movement for 3 weeks on aggressive bowel regimen gi consulted dr. deras: enemas Deep vein thrombosis (DVT) prophylaxis Lovenox SC Dispo--pending clinical improvement. Plan/VTE VTE Prophylaxis Ordered?: Yes VS, I&O, 24H, Fishbone Vital Signs/I&O Vital Signs Date Time Temp Pulse Resp B/P (MAP) Pulse Ox O2 Delivery O2 Flow Rate FiO2 03/02/19 06:00 95.2 77 18 107/59 (75) 92 02/24/19 06:00 1.0 I&O- Last 24 Hours up to 6 AM 03/02/19 06:00 Intake Total 1890 ml Balance 1890 ml Laboratory Data 24H LABS Laboratory Tests 2 03/02/19 08:35: Anion Gap 6L, Glomerular Filtration Rate > 60.0, Blood Urea Nitrogen 16, Creatinine 0.53L, Sodium Level 144, Potassium Level 4.3, Chloride Level 109H, Carbon Dioxide Level 29, Calcium Level 7.9L, Magnesium Level 2.4 CBC/BMP Laboratory Tests 03/02/19 08:35 Calcium Level 7.9 L ALINE HOPE MD Mar 02, 2019 13:37
[2019-03-02 14:00] VITALS: BP 97/59
[2019-03-02] MEDS ORDERED: FUROSEMIDE 40 MG TAB PO ONE (14:00)
[2019-03-02] MEDS: FLEET ENEMA PR SCH ×2 (14:58→21:46)
[2019-03-02] MEDS: QUEtiapine FUMARATE 200 MG TAB PO SCH (20:22)
[2019-03-02] MEDS: IBUPROFEN 400 MG TAB PO PRN (20:25)
[2019-03-02 22:00] VITALS: BP 102/61
[2019-03-03] MEDS: IPRATROPIUM 0.5MG/ALBUTEROL 2.5MG INH SOL UD 3ML (DUONEB)(J7620) NEB SCH ×3 (04:00→11:11)
[2019-03-03 06:00] VITALS: BP 93/58
[2019-03-03] MEDS: SYMBICORT 80/4.5MCG INHALER 6GM INH SCH (07:37)
[2019-03-03] MEDS: FLEET ENEMA PR SCH (09:00)
[2019-03-03 09:20] VITALS: BP 101/66
[2019-03-03] MEDS ORDERED: FUROSEMIDE 20 MG TAB PO ONE (10:00)
[2019-03-03] MEDS: PREGABALIN 100 MG CAP (LYRICA) PO SCH (10:18)
[2019-03-03] MEDS: clonazePAM 1 MG TAB PO SCH (10:18)
[2019-03-03] MEDS: GABAPENTIN 400 MG CAP PO SCH (10:18)
[2019-03-03] MEDS: MOM 30ML SUSPENSION UDC PO SCH (10:19)
[2019-03-03] MEDS: BUPRENORPHINE/NALOXONE 8-2MG SUBLINGUAL TABLET(SUBOXONE) SL SCH (10:19)
[2019-03-03] MEDS: PANTOPRAZOLE 40MG TAB (PROTONIX) PO SCH (10:19)
[2019-03-03] MEDS: predniSONE 20 MG TAB PO SCH (10:19)
[2019-03-03] MEDS: MIRALAX *UNIT DOSE* 17GM PACKET PO SCH (10:19)
[2019-03-03] MEDS: SENOKOT S TAB PO SCH (10:19)
[2019-03-03] MEDS: ENOXAPARIN 40 MG/0.4 ML SYRINGE (J1650) SC SCH ×2 (10:20→10:29)
[2019-03-03 14:00] VITALS: BP 107/68
--- NOTE | 2019-03-03 16:04 | DS.PDOC ---
Discharge Summary General Date of Admission Feb 19, 2019 at 02:01 Date of Discharge March 03, 2019 Discharge Summary CONSULTANTS; DR. SANDHU, CORE CHECKER DR. DERAS, PEGGER DISCHARGE DIAGNOSES FECAL IMPACTION INTESTINAL LYMPHANGIECTASIA PULMONARY NODULE Acute Hypoxic, Hypercarbic Respiratory Failure 2/2 Bronchiolitis / bronchiectasis in a patient with Hx of Asthma and being on chronic narcotics, benzos and sedatives BRONCHIECTASIS ANXIETY/DEPRESSION HEPATITIS C HISTORY OF IV DRUG USE ON SUBOXONE BLADDER PROLAPSE PTSD ACTIVE TOBACCO USE/TOBACCO CESSATION COUNSELLING DISCHARGE MEDS: PLS SEE BELOW DISCHARGE INSTRUCTIONS: ANTHONY W PCP, PULM, GI IN 1 WK. PCP TO REFER TO PULM AND GI HISTORY OF PRESENTING ILLNESS: This is a 34 yo female with multiple pmhx of Congenital Intestinal lymph angiectasia with complex protein-losing enteropathy, History of Hepatitis C, PTSD, Depression, Anxiety, Asthma, History of IVDU who presented to the ed for progressive sob for 1 month and hemoptysis for the past few days. She was found to have acute hypoxic hypercarbic respiratory failure thought to be due to Bronchiolitis / bronchiectasis with asthma exacerbation. HOSPITAL COURSE Acute Hypoxic, Hypercarbic Respiratory Failure 2/2 Bronchiolitis / bronchiectasis in a patient with Hx of Asthma and being on chronic narcotics, benzos and sedatives CT Chest noted Resp panel negative Prednisone, Levaquin, Inhaler therapy, and Serial Nebs as ordered Pulmonary input appreciated We will cont to monitor Has been weaned off oxygen Bronchiolitis/ Bronchiectasis Will need further work up as outpatient follow up with pulmonary. Pulmonary nodule with hilar lymphadenopathy follow up with pulmonary as outpatient. Congenital Intestinal lymphangiectasia with complex enteric protein-losing enteropathy. CT Abd/Pel noted on admission with no acute changes when compared to 08/01/2018 Patient tolerating a PO diet however states that she feels bloated and swollen. Chronic abdominal pain well controlled, and at baseline Patient has yet to have a BM but passing flatus however refusing bowel meds. Her albumin better than usual at 2.0 Insists that she is having a worsening of her disease which happens when ever she is sick. will give 2 days of lasix and albumin for diuresis. Patient encouraged to intake a high protein diet GI Dr. Deras consulted. Fecal impaction/chronic constipation mg citrate senokot fleet enema minimal improvement. History of hepatitis C. History of IVDU. Patient has had no treatment in the past. HIV negative. Hep A and B are negative from 06/2018 admission Follow up as outpatient for treatment once medically stable Anxiety/depression Cont Seroquel. continue clonazepam and gabapentin. History of IV drug use On Suboxone for 8 years. urinary incontinence/Bladder Prolapse Patient states Hx of Bladder Prolapse will give outpatient referral to urology . Discussed with Dr Griffith. History of post-traumatic stress disorder (PTSD). continue home meds. Smoking cessation discussed with patient. fecal impactionConstipation No bowel movement for 3 weeks on aggressive bowel regimen gi consulted dr. deras: enemas Deep vein thrombosis (DVT) prophylaxis Lovenox SC Plan/VTE VTE Prophylaxis Ordered?: Yes DISCHARGE Physical Examination vitals: pls see below General Exam: Positive: Alert, Cooperative, No Acute Distress Eye Exam: Positive: PERRLA ENT Exam: Positive: Atraumatic, Mucous membr. moist/pink Chest Exam: Positive: Rales, Wheezing, Diminished, Other (coarse breath sounds. ) Heart Exam: Positive: Rate Normal, Normal S1, Normal S2 Abdomen Exam: Positive: BS Hyperactive, Soft, Tenderness (there is diffuse tenderness present but no guarding or rigidity. ), Other (distended.) Extremity Exam: Positive: Swelling (trace pitting edema in the L/E B/L); Negative: Clubbing, Cyanosis, Normal pulses, Tenderness, Other Psych Exam: Positive: Oriented x 3 laboratory data, imaging studies, microbiology: pls see below TIME SPENT ON DISCHARGE : 30 MIN Vital Signs/I&Os Vital Signs Date Time Temp Pulse Resp B/P (MAP) Pulse Ox O2 Delivery O2 Flow Rate FiO2 03/02/19 22:00 95.0 75 20 102/61 (75) 94 I&O- Last 24 Hours up to 6 AM 03/03/19 06:00 Intake Total 3295 ml Output Total 0 ml Balance 3295 ml Laboratory Data Labs 24H Laboratory Tests 2 03/02/19 08:35: Anion Gap 6L, Glomerular Filtration Rate > 60.0, Blood Urea Nitrogen 16, Creatinine 0.53L, Sodium Level 144, Potassium Level 4.3, Chloride Level 109H, Carbon Dioxide Level 29, Calcium Level 7.9L, Magnesium Level 2.4 CBC/BMP Laboratory Tests 03/02/19 08:35 Calcium Level 7.9 L Discharge Medications Scheduled Budesonide/Formoterol (Symbicort 80-4.5 Mcg/Act) 60 Puff/Inhaler Aers, 2 PUFF INH BID Buprenorphine/Naloxone (Suboxone 8-2 mg) 1 Mis Mis, 1 STRIP SL BID, (Reported) Clonazepam (Clonazepam) 1 Mg Tab, 1 MG PO TID, (Reported) Docusate Sod/Senna (Senokot S 8.6-50 mg) 1 Tab Tab, 2 TAB PO BID Gabapentin (Gabapentin) 800 Mg Tab, 800 MG PO TID, (Reported) Milk Of Magnesia (Milk of Magnesia) 1,200 Mg/15 Ml Xochitl, 30 ML PO BID Polyethylene Glycol (Peg 3350) 1 Pkt Pow, 1 PKT PO BID Pregabalin (Lyrica) 300 Mg Cap, 300 MG PO TID, (Reported) Quetiapine Fumerate (Seroquel) 400 Mg Tab, 400 MG PO QHS, (Reported) Sodium Phosphate/Biphosphate (Fleet Enema 7-19 gm/118Ml) 1 Sosa Sosa, 1 EA TX BID Scheduled PRN Albuterol Sulfate (Proventil Hfa) 108 Mcg/Act Aer, 2 PUFF INH Q4HP PRN for SHORTNESS OF BREATH Allergies Coded Allergies: azithromycin (Verified Allergy, Intermediate, Swelling, 02/20/19) promethazine (Verified Adverse Reaction, Intermediate, Night Terrors, 02/20/19) erythromycin base (Verified Adverse Reaction, Mild, Nausea, Vomiting, Bloating, Diarrhea , 02/20/19) ALINE HOPE MD Mar 03, 2019 05:54
== END 2019-03-03 14:47 | disposition home or self-care (01) | DRG 189 ==
LOC: M ED 18:45 → M ED INP 02-19 02:01 → M ICU 02-19 03:22 → M MSPAV 02-22 15:33
PROVIDERS: ADMIT Internal Medicine; ATTEND General Practice
DX: J96.21 Acute and chronic respiratory failure with hypoxia (principal); J44.1 Chronic obstructive pulmonary disease with (acute) exacerbation; R04.2 Hemoptysis; K90.49 Malabsorption due to intolerance, not elsewhere classified; J21.9 Acute bronchiolitis, unspecified; J96.22 Acute and chronic respiratory failure with hypercapnia; F17.200 Nicotine dependence, unspecified, uncomplicated; F43.10 Post-traumatic stress disorder, unspecified; F41.9 Anxiety disorder, unspecified; F32.9 Major depressive disorder, single episode, unspecified; R91.1 Solitary pulmonary nodule; B18.2 Chronic viral hepatitis C; K56.41 Fecal impaction; I89.0 Lymphedema, not elsewhere classified; N81.10 Cystocele, unspecified; M77.8 Other enthesopathies, not elsewhere classified; Z88.8 Allergy status to other drugs, medicaments and biological substances; Z79.899 Other long term (current) drug therapy; Z88.1 Allergy status to other antibiotic agents

== ENCOUNTER → 2020-01-30 | Outpatient (CLI) | payer MEDICARE, MEDICAID ==
[~2020-01-30] MED LIST changes: +FLEEENE4 PR; +MILK120011 PO; +PEG1POW PO; +PROV108A INH; -ROPI2TAB PO; +ROPI2TAB3 PO; +SENO8.6T10 PO; +SYMB80INH INH
[2020-01-30 11:41] LABS: BLOOD UREA NITROGEN 9 MG/DL (7-18); CREATININE FOR GFR 0.58 MG/DL (0.55-1.30); GLOMERULAR FILTRATION RATE > 60.0 (>60)
== END ==
LOC: M LAB 10:23
PROVIDERS: ATTEND Internal Medicine Pulmonary Disease
DX: R91.8 Other nonspecific abnormal finding of lung field (principal)

== ENCOUNTER 2020-09-11 19:39 | Inpatient (IN) | payer MEDICARE, MEDICAID ==
[~2020-09-11] VITALS: Ht 170.2 cm; Wt 83.9 kg
[2020-09-11] MEDS ORDERED: QUEtiapine FUMARATE 200 MG TAB PO SCH (21:00)
[2020-09-11 23:06] LABS: BASO % 0.3 % (0.0-1.0); EOS # 0.1 10^3/uL (0.0-0.5); EOS % 2.1 % (0.0-3.0); HEMATOCRIT 44.1 % (36.0-47.0); HEMOGLOBIN 13.9 g/dl (12.0-15.5); LYMPH # 0.6 10^3/uL (1.5-5.0); LYMPH % 15.7 % (24.0-44.0); MEAN CORPUSCULAR HEMOGLOBIN 27.4 pg (27.0-33.0); MEAN CORPUSCULAR HGB CONC 31.5 g/dl (32.0-36.5); MEAN CORPUSCULAR VOLUME 86.8 fl (80.0-96.0); MONO # 0.4 10^3/uL (0.0-0.8); MONO % 9.7 % (0.0-5.0); NEUTROPHILS # 2.8 10^3/uL (1.5-8.5); NEUTROPHILS % 71.9 % (36.0-66.0); PLATELET COUNT, AUTOMATED 229 10^3/uL (150-450); RED BLOOD COUNT 5.08 10^6/uL (4.00-5.40); WHITE BLOOD COUNT 3.8 10^3/uL (4.0-10.0)
[2020-09-11 23:36] LABS: ALBUMIN 2.1 GM/DL (3.2-5.2); ALT/SGPT 34 U/L (12-78); BILIRUBIN,DIRECT < 0.1 MG/DL (0.0-0.2); BILIRUBIN,TOTAL 0.3 MG/DL (0.2-1.0); BLOOD UREA NITROGEN 9 MG/DL (7-18); CALCIUM LEVEL 7.6 MG/DL (8.5-10.1); CARBON DIOXIDE LEVEL 33 MEQ/L (21-32); CHLORIDE LEVEL 105 MEQ/L (98-107); CREATININE FOR GFR 0.34 MG/DL (0.55-1.30); GLOMERULAR FILTRATION RATE > 60.0 (>60); GLUCOSE, FASTING 98 MG/DL (70-100); POTASSIUM SERUM 4.6 MEQ/L (3.5-5.1); SODIUM LEVEL 141 MEQ/L (136-145)
[2020-09-12 00:42] LABS: HCG, SERUM QUALITATIVE NEGATIVE (NEGATIVE)
--- NOTE | 2020-09-12 00:51 | REPVR ---
PROCEDURE INFORMATION: Exam: XR Chest, 1 View Exam date and time: 09/11/2020 10:03 PM Age: 35 years old Clinical indication: Other: SOB TECHNIQUE: Imaging protocol: XR of the chest Views: 1 view. COMPARISON: CR Chest, 2 view PA, Lat 02/18/2019 8:57 PM FINDINGS: Lungs: Degree of inflation of the lungs is normal. No evidence of pulmonary edema. Focal right basilar parenchymal airspace opacity suggests pneumonia. No suspicious parenchymal lung mass. Pleural space: No pleural effusion or pneumothorax. Heart/Mediastinum: Heart and mediastinal contours are unremarkable. No mediastinal adenopathy or hilar mass. Bones/joints: Bony structures and extrathoracic soft tissues are unremarkable for age. IMPRESSION: Airspace process in the lateral right lung base, suggestive of pneumonia. Electronically signed by: Brady Rivreo On 09/12/2020 00:51:08 AM
[2020-09-12] MEDS ORDERED: ISOVUE-370 76% 100ML VIAL As Ordered ONE (01:37)
--- NOTE | 2020-09-12 02:14 | REPVR ---
PROCEDURE INFORMATION: Exam: CT Chest With Contrast Exam date and time: 09/12/2020 12:48 AM Age: 35 years old Clinical indication: Other: Rll infiltrata; Additional info: Rll infiltrates/atelectasis TECHNIQUE: Imaging protocol: Computed tomography of the chest with intravenous contrast. Radiation optimization: All CT scans at this facility use at least one of these dose optimization techniques: automated exposure control; mA and/or kV adjustment per patient size (includes targeted exams where dose is matched to clinical indication); or iterative reconstruction. Contrast material: ISO; Contrast volume: 100 ml; Contrast route: INTRAVENOUS (IV); COMPARISON: CT ANGIO CHEST 02/18/2019 11:41 PM FINDINGS: Lungs: Pulmonary vascular/interstitial pattern does not suggest active pulmonary edema. Multifocal airspace infiltrates predominantly in the right lung, with areas of confluence in the right lower lobe. Lesser changes in the right upper lobe and right middle lobe. No central endobronchial lesion or discrete lung mass. Pleural space: No pleural effusion or pneumothorax. Heart: No overt cardiac enlargement or abnormal volume of pericardial fluid. Mediastinal space: Residual thymic tissue is present in the anterior mediastinum. Aorta: No thoracic aortic aneurysm or dissection. Lymph nodes: Small mediastinal and right hilar lymph nodes measure up to 15 mm short axis, similar to the prior CT. Bones/joints: Bony structures show no acute fracture or destructive process. Soft tissues: No asymmetric abnormality of the extrathoracic soft tissues. IMPRESSION: Multifocal lung infiltrates predominantly in the right lung with areas of confluence at the right lung base and with likely reactive mediastinal and right hilar lymphadenopathy. Appearance suggests a multifocal infectious process Electronically signed by: Brady Rivero On 09/12/2020 02:14:07 AM
--- NOTE | 2020-09-12 02:16 | REPVR ---
PROCEDURE INFORMATION: Exam: CT Abdomen And Pelvis With Contrast Exam date and time: 09/12/2020 12:48 AM Age: 35 years old Clinical indication: Bloating and other: Ascites TECHNIQUE: Imaging protocol: Computed tomography of the abdomen and pelvis with intravenous contrast. Radiation optimization: All CT scans at this facility use at least one of these dose optimization techniques: automated exposure control; mA and/or kV adjustment per patient size (includes targeted exams where dose is matched to clinical indication); or iterative reconstruction. Contrast material: ISO; Contrast volume: 100 ml; Contrast route: INTRAVENOUS (IV); COMPARISON: CT ABD/PEL W/IV CONTRAST ONLY 02/18/2019 11:41 PM FINDINGS: Liver: Liver is prominent in size and probably mildly fatty infiltrated. No focal lesion.Spleen is diffusely enlarged, without focal lesion. Gallbladder and bile ducts: Gallbladder is present and shows no evidence of gallstone. Pancreas: Pancreas appears normal. No focal mass or peripancreatic inflammation. Spleen: See "Liver" finding. Adrenals: Adrenal glands are normal in appearance. Kidneys and ureters: Kidneys appear normal, with no stone, solid mass or hydronephrosis. Stomach and bowel: No evidence of small bowel obstruction. Terminal ileum has normal appearance. Moderate pattern of colonic stool is present. Appendix: Normal caliber appendix is identified, with no adjacent inflammation. Intraperitoneal space: Small volume of perihepatic, mesenteric and lower abdominal and pelvic free fluid without localized fluid collection. No pneumoperitoneum. Vasculature: Main portal and splenic veins enhance normally. No aortic aneurysm. Lymph nodes: No enlarged lymph nodes. Small mesenteric lymph nodes are present. Urinary bladder: Urinary bladder appears normal. Reproductive: Left ovarian cyst measuring 2.8 cm. Bones/joints: Bony structures show no acute fracture or destructive process. IMPRESSION: 1. Mild hepatosplenomegaly and small volume transudate density abdominal and pelvic free fluid without localized collection. 2. Mild mesenteric edema and lymphadenopathy without identifiable bowel abnormality or mesenteric mass. This is a nonspecific finding. 3. Likely incidental 3 cm left ovarian cyst Electronically signed by: Brady Rivero On 09/12/2020 02:16:48 AM
--- NOTE | 2020-09-12 02:34 | HPEPDOC ---
General Date of Admission Date of Service: Sep 12, 2020 Attending Physician: BETTINA HAYWARD DO Chief Complaint The patient is a 35-year-old female admitted with a reason for visit of Cold/Flu Symptoms. History of Present Illness 33 y/o female presents with cc of cough productive of white sputum and sob x 4-5 days, which is getting progressively worse. Pt is a very poor historian. She also states that her belly is more full than usual but attributes to her congenital intestinal lymphagniectasia with complex inestinal protein losing enteropathy. She usu gets ascites from this and gets albumin and lasix at the hospital. She states that her coughing makes her chest hurts that extends to the R shoulder and describes the pain as a dull and sharp in nature which goes away when she doesn't cough. She also states she's had some chills and rigors, but denies n/v/d. In the ER, imaging shows multifocal PNA.; negative respiratory panel. PAST MEDICAL HISTORY: 1. Significant for intestinal lymphangiectasia with protein losing enteropathy. 2. History of hepatitis C. 3. Posttraumatic stress. 4. Anxiety and depression. 5. Question of asthma. 6. Prior history of IV drug use. SURGICAL HISTORY: She has multiple intestinal biopsies, previous feeding tube placement, and sections. SOCIAL HISTORY: [place] Smokes at least a half a pack or more a day. FAMILY HISTORY: Noncontributory ALLERGIES: SEE BELOW MEDICATIONS: At home: - Suboxone - clonazepam - gabapentin - Lyrica - Seroquel - albuterol IMAGING: CT abd/pelvis w. ctx IMPRESSION: 1. Mild hepatosplenomegaly and small volume transudate density abdominal and pelvic free fluid without localized collection. 2. Mild mesenteric edema and lymphadenopathy without identifiable bowel abnormality or mesenteric mass. This is a nonspecific finding. 3. Likely incidental [address] cm left ovarian cyst CT Chest With Contrast IMPRESSION: Multifocal lung infiltrates predominantly in the right lung with areas of confluence at the right lung base and with likely reactive mediastinal and right hilar lymphadenopathy. Appearance suggests a multifocal infectious process CXR IMPRESSION: Airspace process in the lateral right lung base, suggestive of pneumonia Home Medications Scheduled Buprenorphine HCl/Naloxone HCl (Suboxone 8 mg-2 mg Sl Film) 1 Mis Mis, 2 STRIP SL DAILY, (Reported) Clonazepam (Clonazepam) 1 Mg Tab, 1 MG PO TID, (Reported) Diphenhydramine HCl (Benadryl) 25 Mg Capsule, 75 MG PO QHS, (Reported) Pregabalin (Pregabalin) 200 Mg Capsule, 200 MG PO TID, (Reported) Quetiapine Fumarate (Quetiapine Fumarate) 300 Mg Tablet, 600 MG PO QHS, (Reported) Scheduled PRN Albuterol Sulfate (Proair Hfa) 8.5 Gm Hfa.aer.ad, 2 PUFF INH Q4H PRN for SHORTNESS OF BREATH, (Reported) Allergies Coded Allergies: azithromycin (Verified Allergy, Intermediate, Swelling, 02/20/19) promethazine (Verified Adverse Reaction, Intermediate, Night Terrors, 02/20/19) erythromycin base (Verified Adverse Reaction, Mild, Nausea, Vomiting, Bloating, Diarrhea , 02/20/19) A-FIB/CHADSVASC A-FIB History Current/History of A-Fib/PAF?: No Current PO Anticoag Therapy: No Review of Systems Constitutional: Reports: Chills, Fever, Malaise, Night Sweats, Weakness, Fatigue, Lethargy; Denies: Weight Loss Eyes: Denies: Pain ENT: Denies: Head Aches, Ear Pain, Dysphagia Skin: Denies: Rash, Lesions Pulmonary: Reports: Dyspnea, Cough, Pleuritic Chest Pain Cardiovascular: Denies: Chest Pain, Palpitations, Orthopnea, Paroxysmal Noc. Dyspnea, Edema Gastrointestinal: Reports: Abdominal Pain; Denies: Nausea, Vomiting, Diarrhea, Constipation Genitourinary: Reports: Other Symptoms (hx of uterine prolapse ); Denies: Dysuria, Frequency Endocrine: Denies: Polydipsia, Polyphagia, Polyuria Physical Examination General Exam: Positive: Alert, Cooperative, No Acute Distress Eye Exam: Positive: PERRLA ENT Exam: Positive: Atraumatic, Mucous membr. moist/pink, Tongue Midline, Other ENT (very poor dentition) Neck Exam: Positive: Supple; Negative: JVD, thyromegaly, Lymphadenopathy Chest Exam: Positive: Wheezing; Negative: Rales, Rhonchi, Diminished Heart Exam: Positive: Rate Normal Abdomen Exam: Positive: Normal bowel sounds, Soft, Tenderness; Negative: Hepatospenomegaly, Mass, Hernia Extremity Exam: Positive: Edema (trace); Negative: Clubbing, Cyanosis Skin Exam: Negative: Nl turgor and temperature, Rash, Breakdown, Lesion Vital Signs Vital Signs Date Time Temp Pulse Resp B/P (MAP) Pulse Ox O2 Delivery O2 Flow Rate FiO2 09/12/20 02:09 98.4 09/12/20 02:00 96 19 97/57 (70) 96 Nasal Cannula 1.0 Laboratory Data Labs 24H Laboratory Tests 2 09/11/20 22:53: Immature Granulocyte % (Auto) 0.3, Neutrophils (%) (Auto) 71.9H, Lymphocytes (%) (Auto) 15.7L, Monocytes (%) (Auto) 9.7H, Eosinophils (%) (Auto) 2.1, Basophils (%) (Auto) 0.3, Neutrophils # (Auto) 2.8, Lymphocytes # (Auto) 0.6L, Monocytes # (Auto) 0.4, Eosinophils # (Auto) 0.1, Basophils # (Auto) 0.0, Nucleated Red Blood Cells % (auto) 0.0, Anion Gap 3L, Glomerular Filtration Rate > 60.0, Lactic Acid Level 0.9, Calcium Level 7.6L, Total Bilirubin 0.3, Direct Bilirubin < 0.1, Aspartate Amino Transf (AST/SGOT) 49H, Alanine Aminotransferase (ALT/SGPT) 34, Alkaline Phosphatase 111, Total Protein 5.0L, Albumin 2.1L, Albumin/Globulin Ratio 0.7L, Human Chorionic Gonadotropin, Qual NEGATIVE CBC/BMP Laboratory Tests 09/11/20 22:53 Microbiology Microbiology 09/11/20 Blood Culture, Received Pending 09/11/20 Respiratory Virus Panel (PCR) (JEFFY) - Final, Complete 09/11/20 Blood Culture, Received Pending Assessment/Plan Sulma Mendoza is a 33 YO F with history of protein-losing enteropathy and congenital intestinal lymphangiectasia who presents with cough and sob for 4-5x and getting progressively worse. She'll be admitted for further mgmt of multifocal PNA found on imaging Plan / VTE VTE Prophylaxis Ordered?: Yes Plan Plan #Acute hypoxic respiratory failure 2/2 Multifocal PNA - procal pending - no leukocytosis - 2L NC to titrate to 88-92% - levaquin PO - blood cx ordered - pending - Sputum cx and gram stain ordered- pending #Hx of Intestinal lymphangiectasia disease - mild tenderness on exam; no ascites appreciated on exam - BP soft in SBP in 90s - IVF 100cc/h - Am team consider consulting GI or pt follow up with GI outpt in [place] #Opioid use disorder - on suboxone #History of asthma - Duonebs PRN - wheezing on exam - prednisone 20mg PO daily - O2 NC PRN - incentive spirometry DVT ppx: lovenox GI ppx: protonix 40mg PO daily IVF: 100cc/h NS 0.9% Diet: regular Code: Full GME ATTESTATION GME ATTESTATION My faculty preceptor for this patient encounter was physically present during the encounter and was fully available. All aspects of the patient interview, examination, medical decision making process, and medical care plan development were reviewed and approved by the faculty preceptor. The faculty preceptor is aware and concurs with the plan as stated in the body of this note and will attest to such by his/her cosignature. Sherwin Vegas DO Sep 12, 2020 02:34
[2020-09-12] MEDS ORDERED: ACETAMINOPHEN TAB 650MG DOSE (2X325MG) PO PRN (02:45)
[2020-09-12] MEDS ORDERED: QUET1TAB10 PO (03:12)
[2020-09-12] MEDS ORDERED: PROAAER10 INH (03:12)
[2020-09-12] MEDS ORDERED: PREG200C PO (03:12)
[2020-09-12] MEDS ORDERED: BENA25CA4 PO (03:14)
[2020-09-12] MEDS ORDERED: cefTRIAXone SOD 1 GM in D5W MINI-BAG PLUS 50 ML IV SCH (04:00)
[2020-09-12] MEDS ORDERED: NS 1,000 ML IV SCH (04:30)
[2020-09-12] MEDS ORDERED: ALBUTEROL 90 MCG/ACT 8GM HFA INHALER INH PRN (04:30)
[2020-09-12] MEDS ORDERED: DOXYCYCLINE HYCLATE 100 MG in D5W MINI-BAG PLUS 100 ML IV SCH (05:00)
[2020-09-12 06:00] VITALS: BP 105/73
[2020-09-12] MEDS ORDERED: LevoFLOXacin 750 MG TABLET PO SCH (06:00)
[2020-09-12] MEDS: cefTRIAXone SOD 2 GM in D5W MINI-BAG PLUS 50 ML IV SCH (08:54)
[2020-09-12] MEDS: FUROSEMIDE 40MG/4ML VIAL (J1940) IV SCH (08:55)
[2020-09-12] MEDS: PANTOPRAZOLE 40MG TAB (PROTONIX) PO SCH (08:56)
[2020-09-12] MEDS: clonazePAM 1 MG TAB PO SCH ×3 (08:56→21:07)
[2020-09-12] MEDS ORDERED: ENOXAPARIN 40MG/0.4ML SYRINGE (J1650 PER 10MG) SC SCH (09:00)
[2020-09-12] MEDS ORDERED: BUPRENORPHINE/NALOXONE 8-2MG SUBLINGUAL TABLET(SUBOXONE) SL SCH (09:00)
[2020-09-12] MEDS ORDERED: predniSONE 20 MG TAB PO SCH (09:00)
--- NOTE | 2020-09-12 09:18 | ECGEPIP ---
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
[2020-09-12] MEDS: DOXYCYCLINE HYCLATE 100 MG in D5W MINI-BAG PLUS 100 ML IV SCH ×2 (10:44→21:08)
[2020-09-12] MEDS: ALBUTEROL SULFATE 2.5 MG/0.5 ML INH NEB SOLN NEB SCH ×3 (11:18→19:49)
[2020-09-12 14:00] VITALS: BP 97/57
[2020-09-12] MEDS: PREGABALIN 100 MG CAP (LYRICA) PO SCH ×2 (14:06→21:07)
[2020-09-12] MEDS: QUEtiapine FUMARATE 200 MG TAB PO SCH (21:07)
[2020-09-12] MEDS: diphenhydrAMINE 25MG CAP PO SCH (21:07)
[2020-09-12 22:00] VITALS: BP 104/62
[2020-09-13] MEDS: PREGABALIN 100 MG CAP (LYRICA) PO SCH ×3 (05:27→20:45)
[2020-09-13 06:00] VITALS: BP 99/53
[2020-09-13 07:22] LABS: HEMATOCRIT 44.6 % (36.0-47.0); HEMOGLOBIN 14.4 g/dl (12.0-15.5); MEAN CORPUSCULAR HEMOGLOBIN 27.7 pg (27.0-33.0); MEAN CORPUSCULAR HGB CONC 32.3 g/dl (32.0-36.5); MEAN CORPUSCULAR VOLUME 85.9 fl (80.0-96.0); PLATELET COUNT, AUTOMATED 377 10^3/uL (150-450); RED BLOOD COUNT 5.19 10^6/uL (4.00-5.40); WHITE BLOOD COUNT 2.8 10^3/uL (4.0-10.0)
[2020-09-13] MEDS: ALBUTEROL SULFATE 2.5 MG/0.5 ML INH NEB SOLN NEB SCH ×4 (07:23→20:00)
[2020-09-13 07:40] LABS: BLOOD UREA NITROGEN 9 MG/DL (7-18); CALCIUM LEVEL 7.7 MG/DL (8.5-10.1); CARBON DIOXIDE LEVEL 33 MEQ/L (21-32); CHLORIDE LEVEL 104 MEQ/L (98-107); GLOMERULAR FILTRATION RATE > 60.0 (>60); GLUCOSE, FASTING 72 MG/DL (70-100); POTASSIUM SERUM 4.1 MEQ/L (3.5-5.1); SODIUM LEVEL 142 MEQ/L (136-145)
[2020-09-13] MEDS ORDERED: predniSONE 20 MG TAB PO SCH (09:00)
[2020-09-13] MEDS ORDERED: BUPRENORPHINE/NALOXONE 8-2MG SUBLINGUAL TABLET(SUBOXONE) SL SCH (09:00)
[2020-09-13] MEDS: clonazePAM 1 MG TAB PO SCH ×3 (09:37→20:45)
[2020-09-13] MEDS: cefTRIAXone SOD 2 GM in D5W MINI-BAG PLUS 50 ML IV SCH (09:38)
[2020-09-13] MEDS: PANTOPRAZOLE 40MG TAB (PROTONIX) PO SCH (09:38)
[2020-09-13] MEDS: FUROSEMIDE 40MG/4ML VIAL (J1940) IV SCH (09:38)
[2020-09-13] MEDS: DOXYCYCLINE HYCLATE 100 MG in D5W MINI-BAG PLUS 100 ML IV SCH (10:43)
[2020-09-13] MEDS ORDERED: KETOROLAC 30 MG/ML 1ML VIAL IV ONE (12:00)
--- NOTE | 2020-09-13 12:12 | IPNPDOC ---
Text Note Date of Service The patient was seen on 09/13/20. NOTE Subjective: Continues to require oxygen, continues to have cough , no phlegm production, no fever or chills, complains of abdominal distension , wants her subaxone to be give bid instead of as a single dose. COmplains of generalized body ache Physical Exam Vitals: As below General Exam: Positive: Alert, Cooperative, No Acute Distress Eye Exam: Positive: PERRLA ENT Exam: Positive: Atraumatic, Mucous membr. 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 Hypoxia 2/2 Multifocal PNA/ bronchiectasis. on the back ground of opiates and multiple sedating medications continue oxygen supplementation ABG Multifocal Pneumonia/ Acute flare bronchiectasis. continue ceftriaxone and doxycycline blood cx negative till date Sputum cx and gram stain ordered- pending Hx of Intestinal lymphangiectasia disease with protein loosing enteropathy mild tenderness on exam; no ascites appreciated on exam continue lasix. was asking if she can be put on albumin and lasix as her abdomen is getting distended will consult our GI. Opioid use disorder/ h/o IV drug abuse clean for 6 years on suboxone. She takes it BID Asthma with exacerbation Duonebs , budesonide, patient is refusing methyl prednisone. O2 NC PRN incentive spirometry Anxiety/ depression/ PTSD seroquel, clonazepam Generalized body pain lyrica, subaxone will add toradol. History of hepatitis C. Continued tobacco use counselled about stopping of smoking. DVT ppx: lovenox GI ppx: protonix 40mg PO daily VS,Fishbone, I+O VS, Fishbone, I+O Laboratory Tests 09/13/20 06:45 Vital Signs Date Time Temp Pulse Resp B/P (MAP) Pulse Ox O2 Delivery O2 Flow Rate FiO2 09/13/20 09:37 2.0 09/13/20 06:00 97.7 91 20 99/53 (68) 90 Room Air I&O- Last 24 Hours up to 6 AM 09/13/20 06:00 Intake Total 930 ml Output Total 1300 ml Balance -370 ml OZ GUERRERO MD Sep 13, 2020 12:12
[2020-09-13] MEDS: methylPREDNISolone 40MG 1ML VIAL IV SCH ×2 (13:54→20:46)
[2020-09-13] MEDS: NICOTINE 14 MG/24 HR TRANSDERMAL TD SCH (15:33)
[2020-09-13 16:00] VITALS: BP 88/53
[2020-09-13] MEDS ORDERED: KETOROLAC 30 MG/ML 1ML VIAL IV PRN (18:00)
[2020-09-13] MEDS: BUDESONIDE 0.5 MG/2 ML INHALATION SUSPENSION INH SCH (20:00)
[2020-09-13] MEDS: QUEtiapine FUMARATE 200 MG TAB PO SCH (20:45)
[2020-09-13] MEDS: DOXYCYCLINE HYCLATE 100MG TABLET PO SCH (20:45)
[2020-09-13] MEDS: diphenhydrAMINE 25MG CAP PO SCH (20:46)
[2020-09-13 22:00] VITALS: BP 92/55
[2020-09-14] MEDS: ALBUTEROL SULFATE 2.5 MG/0.5 ML INH NEB SOLN NEB SCH ×5 (00:18→20:00)
[2020-09-14] MEDS: methylPREDNISolone 40MG 1ML VIAL IV SCH (05:47)
[2020-09-14] MEDS: PREGABALIN 100 MG CAP (LYRICA) PO SCH ×3 (05:47→21:22)
[2020-09-14 05:54] LABS: HEMATOCRIT 43.8 % (36.0-47.0); HEMOGLOBIN 14.2 g/dl (12.0-15.5); LYMPH # 0.5 10^3/uL (1.5-5.0); LYMPH % 9.1 % (24.0-44.0); MEAN CORPUSCULAR HEMOGLOBIN 27.5 pg (27.0-33.0); MEAN CORPUSCULAR HGB CONC 32.4 g/dl (32.0-36.5); MEAN CORPUSCULAR VOLUME 84.9 fl (80.0-96.0); MONO # 0.3 10^3/uL (0.0-0.8); MONO % 5.4 % (0.0-5.0); NEUTROPHILS # 4.4 10^3/uL (1.5-8.5); NEUTROPHILS % 85.1 % (36.0-66.0); PLATELET COUNT, AUTOMATED 464 10^3/uL (150-450); RED BLOOD COUNT 5.16 10^6/uL (4.00-5.40); WHITE BLOOD COUNT 5.2 10^3/uL (4.0-10.0)
[2020-09-14 06:00] VITALS: BP 91/55
[2020-09-14 06:25] LABS: ALBUMIN 2.2 GM/DL (3.2-5.2); ALT/SGPT 21 U/L (12-78); BILIRUBIN,TOTAL 0.2 MG/DL (0.2-1.0); BLOOD UREA NITROGEN 14 MG/DL (7-18); CALCIUM LEVEL 7.5 MG/DL (8.5-10.1); CARBON DIOXIDE LEVEL 31 MEQ/L (21-32); CHLORIDE LEVEL 104 MEQ/L (98-107); CREATININE FOR GFR 0.46 MG/DL (0.55-1.30); GLOMERULAR FILTRATION RATE > 60.0 (>60); GLUCOSE, FASTING 121 MG/DL (70-100); POTASSIUM SERUM 3.9 MEQ/L (3.5-5.1); SODIUM LEVEL 141 MEQ/L (136-145); TOTAL PROTEIN 5.7 GM/DL (6.4-8.2)
[2020-09-14] MEDS: BUDESONIDE 0.5 MG/2 ML INHALATION SUSPENSION INH SCH ×3 (08:00→20:00)
[2020-09-14] MEDS: cefTRIAXone SOD 2 GM in D5W MINI-BAG PLUS 50 ML IV SCH (08:15)
[2020-09-14] MEDS: PANTOPRAZOLE 40MG TAB (PROTONIX) PO SCH (08:15)
[2020-09-14] MEDS: DOXYCYCLINE HYCLATE 100MG TABLET PO SCH ×2 (08:15→21:22)
[2020-09-14] MEDS: FUROSEMIDE 40MG/4ML VIAL (J1940) IV SCH (08:15)
[2020-09-14] MEDS: clonazePAM 1 MG TAB PO SCH ×3 (08:16→21:22)
[2020-09-14] MEDS: BUPRENORPHINE/NALOXONE 8-2MG SUBLINGUAL TABLET(SUBOXONE) SL SCH ×2 (08:16→21:23)
[2020-09-14] MEDS: NICOTINE 14 MG/24 HR TRANSDERMAL TD SCH (08:17)
[2020-09-14] MEDS: AUGMENTIN 875 MG TAB PO SCH ×2 (10:37→21:22)
[2020-09-14] MEDS: FUROSEMIDE 40 MG TAB PO SCH ×2 (11:11→16:58)
[2020-09-14] MEDS ORDERED: ONDANSETRON 4 MG ORAL DISINTEGRATING TAB SL PRN (13:15)
[2020-09-14 14:00] VITALS: BP 92/56
--- NOTE | 2020-09-14 16:30 | IPNPDOC ---
Text Note Date of Service The patient was seen on 09/14/20. NOTE Subjective: Continues to require oxygen, continues to have cough , no phlegm production, no fever or chills, complains of abdominal distension. Had bowel movement. Physical Exam Vitals: As below General Exam: Positive: Alert, Cooperative, No Acute Distress Eye Exam: Positive: PERRLA ENT Exam: Positive: Atraumatic, Mucous membr. 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 on the back ground of opiates and multiple sedating medications continue oxygen supplementation as needed. refused ABG. As per respiratory refusing the nebs. Multifocal Pneumonia/ Acute flare bronchiectasis. Augmentin and doxycycline blood cx negative till date Sputum cx and gram stain ordered Hx of Intestinal lymphangiectasia with protein loosing enteropathy diagnosed at the age of 3 to 5 years. mild tenderness on exam; no ascites appreciated on exam continue lasix. albumin level not too bad. Opioid use disorder/ h/o IV drug abuse clean for 6 years on suboxone. She takes it BID Asthma with exacerbation Duonebs , budesonide, patient is refusing methyl prednisone. O2 NC PRN incentive spirometry Anxiety/ depression/ PTSD seroquel, clonazepam Generalized body pain lyrica, subaxone will add toradol. History of hepatitis C. Continued tobacco use counselled about stopping of smoking. H/o Pulmonary nodule not seen in this CT scan. Bilateral hilar lymphadenopathy and hilar lymphadenopathy most probably reactive needs follow up. DVT ppx: lovenox GI ppx: protonix 40mg PO daily VS,Fishbone, I+O VS, Fishbone, I+O Laboratory Tests 09/14/20 05:42 Vital Signs Date Time Temp Pulse Resp B/P (MAP) Pulse Ox O2 Delivery O2 Flow Rate FiO2 09/14/20 06:00 97.3 61 18 91/55 (67) 91 Room Air 09/13/20 20:30 2.0 I&O- Last 24 Hours up to 6 AM 09/14/20 07:00 Intake Total 1290 ml Output Total 1550 ml Balance -260 ml OZ GUERRERO MD Sep 14, 2020 07:15
[2020-09-14] MEDS: QUEtiapine FUMARATE 200 MG TAB PO SCH (21:22)
[2020-09-14] MEDS: diphenhydrAMINE 25MG CAP PO SCH (21:22)
[2020-09-14 22:00] VITALS: BP 92/69
[2020-09-15] MEDS: ALBUTEROL SULFATE 2.5 MG/0.5 ML INH NEB SOLN NEB SCH ×2 (01:07→08:00)
[2020-09-15] MEDS: PREGABALIN 100 MG CAP (LYRICA) PO SCH ×2 (05:43→14:03)
[2020-09-15 06:00] VITALS: BP 80/60
[2020-09-15 06:16] LABS: BASO % 0.2 % (0.0-1.0); EOS # 0.1 10^3/uL (0.0-0.5); EOS % 1.2 % (0.0-3.0); HEMATOCRIT 46.6 % (36.0-47.0); HEMOGLOBIN 14.6 g/dl (12.0-15.5); LYMPH # 0.9 10^3/uL (1.5-5.0); MEAN CORPUSCULAR HEMOGLOBIN 26.9 pg (27.0-33.0); MEAN CORPUSCULAR HGB CONC 31.3 g/dl (32.0-36.5); MEAN CORPUSCULAR VOLUME 85.8 fl (80.0-96.0); MONO # 0.4 10^3/uL (0.0-0.8); MONO % 10.3 % (0.0-5.0); NEUTROPHILS # 2.7 10^3/uL (1.5-8.5); NEUTROPHILS % 66.8 % (36.0-66.0); PLATELET COUNT, AUTOMATED 452 10^3/uL (150-450); RED BLOOD COUNT 5.43 10^6/uL (4.00-5.40); WHITE BLOOD COUNT 4.1 10^3/uL (4.0-10.0)
[2020-09-15 06:31] LABS: BLOOD UREA NITROGEN 14 MG/DL (7-18); CALCIUM LEVEL 7.7 MG/DL (8.5-10.1); CARBON DIOXIDE LEVEL 34 MEQ/L (21-32); CHLORIDE LEVEL 103 MEQ/L (98-107); CREATININE FOR GFR 0.56 MG/DL (0.55-1.30); GLOMERULAR FILTRATION RATE > 60.0 (>60); GLUCOSE, FASTING 89 MG/DL (70-100); POTASSIUM SERUM 3.4 MEQ/L (3.5-5.1); SODIUM LEVEL 143 MEQ/L (136-145)
[2020-09-15] MEDS ORDERED: AMOX875T2 PO (07:38)
[2020-09-15] MEDS ORDERED: PROAAER10 INH (07:38)
[2020-09-15] MEDS ORDERED: NICO21DI31 TOP (07:41)
[2020-09-15] MEDS ORDERED: FURO40TA2 PO (07:41)
[2020-09-15] MEDS: BUDESONIDE 0.5 MG/2 ML INHALATION SUSPENSION INH SCH (08:00)
[2020-09-15] MEDS: PANTOPRAZOLE 40MG TAB (PROTONIX) PO SCH (08:37)
[2020-09-15] MEDS: clonazePAM 1 MG TAB PO SCH (08:37)
[2020-09-15] MEDS: AUGMENTIN 875 MG TAB PO SCH (08:37)
[2020-09-15] MEDS: FUROSEMIDE 40 MG TAB PO SCH (08:41)
[2020-09-15] MEDS: BUPRENORPHINE/NALOXONE 8-2MG SUBLINGUAL TABLET(SUBOXONE) SL SCH (08:41)
[2020-09-15] MEDS: DOXYCYCLINE HYCLATE 100MG TABLET PO SCH (08:41)
[2020-09-15] MEDS: NICOTINE 14 MG/24 HR TRANSDERMAL TD SCH (08:42)
[2020-09-15 08:44] VITALS: BP 82/50
[2020-09-15] MEDS ORDERED: predniSONE 20 MG TAB PO SCH (09:00)
[2020-09-15] MEDS ORDERED: MEDI473O PO (11:22)
--- NOTE | 2020-09-15 11:35 | DS.PDOC ---
Discharge Summary General Date of Admission Sep 13, 2020 at 11:49 Date of Discharge 09/15/20 Discharge Summary PROCEDURES PERFORMED DURING STAY: [None]. DISCHARGE DIAGNOSES: Right Multifocal pneumonia Acute flare of right bronchiectasis Asthma exacerbation Hypoxia Chronic Hypotension SECONDARY DIAGNOSIS: Intestinal lymphangiectasia with protein losing enteropathy. History of hepatitis C. Posttraumatic stress. Anxiety and depression. Prior history of IV drug use Now on Suboxone Tobacco use Pulmonary nodule. COMPLICATIONS/CHIEF COMPLAINT: Multifocal Pneumonia. 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 on the back ground of opiates and multiple sedating medications resolved. Off oxygen now. Multifocal Pneumonia/ Acute flare bronchiectasis. Augmentin blood cx negative till date Hx of Intestinal lymphangiectasia with protein loosing enteropathy diagnosed at the age of 3 to 5 years. continue lasix. Did not need albumin this admission albumin level not too bad. Will start on medium chain triglyceride oil. Catracho reports she used to be on this when she was a child for 5 years or more but then had to stop taking it as the insurance was not covering it. Opioid use disorder/ h/o IV drug abuse clean for 6 years on suboxone. She takes it BID Asthma with exacerbation albuterol prn. finished short course of steroids. incentive spirometry Anxiety/ depression/ PTSD seroquel, clonazepam Generalized body pain lyrica, subaxone History of hepatitis C. Continued tobacco use counselled about stopping of smoking. H/o Pulmonary nodule not seen in this CT scan. Bilateral hilar lymphadenopathy and hilar lymphadenopathy most probably reactive needs follow up. DISCHARGE MEDICATIONS: Please see below. ALLERGIES: Please see below. PHYSICAL EXAMINATION ON DISCHARGE: VITAL SIGNS: Please see below. General Exam: Positive: Alert, Cooperative, No Acute Distress Eye Exam: Positive: PERRLA ENT Exam: Positive: Atraumatic, Mucous membr. moist/pink, Tongue Midline, Other ENT (very poor dentition) Neck Exam: Positive: Supple; Negative: JVD, thyromegaly, Lymphadenopathy Chest Exam: Positive: Wheezing; Negative: Rales, Rhonchi, Diminished Heart Exam: Positive: Rate Normal Abdomen Exam: Positive: Normal bowel sounds, Soft, Tenderness; Negative: Hepatospenomegaly, Mass, Hernia Extremity Exam: Positive: Edema (trace); Negative: Clubbing, Cyanosis Skin Exam: Negative: Nl turgor and temperature, Rash, Breakdown, Lesion LABORATORY DATA: Please see below. ACTIVITY: [As tolerated]. DIET: As tolerated DISCHARGE PLAN: Home DISCHARGE INSTRUCTIONS: Follow up PMD in 1 week Needs referral to pulmonary for bronchiectasis and reccurent pneumonia on the right. DISCHARGE CONDITION: [Stable]. TIME SPENT ON DISCHARGE: 35 minutes. Vital Signs/I&Os Vital Signs Date Time Temp Pulse Resp B/P (MAP) Pulse Ox O2 Delivery O2 Flow Rate FiO2 09/15/20 08:44 82/50 (61) 09/15/20 06:00 97.8 57 14 94 Room Air 09/14/20 08:00 2.0 I&O- Last 24 Hours up to 6 AM 09/15/20 05:59 Intake Total 1320 ml Output Total 1600 ml Balance -280 ml Laboratory Data Labs 24H Laboratory Tests 2 09/15/20 05:58: Immature Granulocyte % (Auto) 0.5, Neutrophils (%) (Auto) 66.8H, Lymphocytes (%) (Auto) 21.0L, Monocytes (%) (Auto) 10.3H, Eosinophils (%) (Auto) 1.2, Basophils (%) (Auto) 0.2, Neutrophils # (Auto) 2.7, Lymphocytes # (Auto) 0.9L, Monocytes # (Auto) 0.4, Eosinophils # (Auto) 0.1, Basophils # (Auto) 0.0, Nucleated Red Blood Cells % (auto) 0.0, Anion Gap 6L, Glomerular Filtration Rate > 60.0, Calcium Level 7.7L CBC/BMP Laboratory Tests 09/15/20 05:58 Microbiology Microbiology 09/11/20 Blood Culture - Preliminary, Resulted No Growth after 72 hours. All specime... 09/11/20 Respiratory Virus Panel (PCR) (JE[facility]) - Final, Complete 09/11/20 Blood Culture - Preliminary, Resulted No Growth after 72 hours. All specime... Discharge Medications Scheduled Amoxicillin/Potassium Clav (Amox-Clav 875-125 mg Tablet) 1 Each Tablet, 875 MG PO BID Buprenorphine HCl/Naloxone HCl (Suboxone 8 mg-2 mg Sl Film) 1 Mis Mis, 2 STRIP SL DAILY, (Reported) Clonazepam (Clonazepam) 1 Mg Tab, 1 MG PO TID, (Reported) Diphenhydramine HCl (Benadryl) 25 Mg Capsule, 75 MG PO QHS, (Reported) Furosemide (Furosemide) 40 Mg Tablet, 40 MG PO DAILY Medium Chain Triglycerides (Mct Oil) 473 Ml Oil, 15 ML PO BID Nicotine (Nicotine Patch) 21 Mg Patch.td24, 1 PATCH TOP DAILY for smoking cessation Pregabalin (Pregabalin) 200 Mg Capsule, 200 MG PO TID, (Reported) Quetiapine Fumarate (Quetiapine Fumarate) 300 Mg Tablet, 600 MG PO QHS, (Reported) Scheduled PRN Albuterol Sulfate (Proair Hfa) 8.5 Gm Hfa.aer.ad, 2 PUFF INH Q4H PRN for SHORTNESS OF BREATH, (Reported) Albuterol Sulfate (Proair Hfa) 8.5 Gm Hfa.aer.ad, 2 PUFF INH Q4-6HP PRN for wheezing Allergies Coded Allergies: azithromycin (Verified Allergy, Intermediate, Swelling, 02/20/19) promethazine (Verified Adverse Reaction, Intermediate, Night Terrors, 02/20/19) erythromycin base (Verified Adverse Reaction, Mild, Nausea, Vomiting, Bloating, Diarrhea , 02/20/19) OZ GUERRERO MD Sep 15, 2020 11:35
== END 2020-09-15 14:56 | disposition home or self-care (01) | DRG 194 ==
LOC: M ED 19:39 → M ED INP 09-12 02:48 → ENRESERV 09-12 05:18 → M MS5PR 09-12 05:45 → OBSVTOIN 09-13 11:49
PROVIDERS: ADMIT Internal Medicine; ATTEND Internal Medicine Nephrology
DX: J18.9 Pneumonia, unspecified organism (principal); K90.49 Malabsorption due to intolerance, not elsewhere classified; J45.901 Unspecified asthma with (acute) exacerbation; R09.02 Hypoxemia; F43.10 Post-traumatic stress disorder, unspecified; F41.9 Anxiety disorder, unspecified; F32.9 Major depressive disorder, single episode, unspecified; F11.10 Opioid abuse, uncomplicated; I89.0 Lymphedema, not elsewhere classified; F17.210 Nicotine dependence, cigarettes, uncomplicated; Z79.899 Other long term (current) drug therapy; Z88.1 Allergy status to other antibiotic agents; Z88.8 Allergy status to other drugs, medicaments and biological substances

== ENCOUNTER 2021-07-12 17:57 | Emergency (ER) | payer MEDICARE, MEDICAID ==
[~2021-07-12] VITALS: Ht 170.2 cm; Wt 56.8 kg
[~2021-07-12 17:57] MED LIST changes: +AMOX875T2 PO; +BENA25CA4 PO; +FURO40TA2 PO; +GABA-283 PO; -GABA-845 PO; +MEDI473O PO; +NICO1DIS12 TOP; -PEG1POW PO; +POLY17PO18 PO; +PREG200C PO; +PROAAER10 INH; +QUET300T2 PO
--- NOTE | 2021-07-12 19:22 | REP ---
INDICATION: DYSPNEA/COUGH. COMPARISON: 09/11/2020 TECHNIQUE: Portable FINDINGS: The technique utilized in obtaining the radiograph has magnified the cardiac silhouette and accentuated the interstitial markings. The superior mediastinal structures are midline. The cardiac silhouette is unremarkable in size, shape, and position. The diaphragmatic surfaces of the lungs are regular, and the costophrenic angles are clear. The pulmonary chavira are clear. The imaged osseous structures are intact. IMPRESSION: There is no acute cardiopulmonary disease. <Electronically signed by Tank Fiore > 07/12/21 191
[2021-07-12] MEDS: COMBIVENT RESPIMAT 100-20MCG INHALER 4GM INH SCH ×2 (19:35→20:43)
[2021-07-12] MEDS ORDERED: methylPREDNISolone 125MG 2ML VIAL IV ONE (19:35)
[2021-07-12 19:56] LABS: BASO % 0.4 % (0.0-1.0); EOS # 0.1 10^3/uL (0.0-0.5); HEMATOCRIT 45.6 % (36.0-47.0); HEMOGLOBIN 14.4 g/dl (12.0-15.5); LYMPH # 0.9 10^3/uL (1.5-5.0); MEAN CORPUSCULAR HEMOGLOBIN 25.8 pg (27.0-33.0); MEAN CORPUSCULAR HGB CONC 31.6 g/dl (32.0-36.5); MEAN CORPUSCULAR VOLUME 81.6 fl (80.0-96.0); MONO # 0.5 10^3/uL (0.0-0.8); MONO % 10.2 % (2.0-8.0); NEUTROPHILS # 3.6 10^3/uL (1.5-8.5); NEUTROPHILS % 69.4 % (36.0-66.0); PLATELET COUNT, AUTOMATED 297 10^3/uL (150-450); RED BLOOD COUNT 5.59 10^6/uL (4.00-5.40); WHITE BLOOD COUNT 5.2 10^3/uL (4.0-10.0)
[2021-07-12 20:26] LABS: ALBUMIN 2.4 GM/DL (3.2-5.2); ALT/SGPT 20 U/L (12-78); BILIRUBIN,DIRECT 0.2 MG/DL (0.0-0.2); BILIRUBIN,TOTAL 0.3 MG/DL (0.2-1.0); BLOOD UREA NITROGEN 7 MG/DL (7-18); CALCIUM LEVEL 7.6 MG/DL (8.5-10.1); CARBON DIOXIDE LEVEL 35 MEQ/L (21-32); CHLORIDE LEVEL 103 MEQ/L (98-107); CK-MB VALUE MASS 1.9 NG/ML (<3.6); CPK CREATINE PHOSPHOKINASE 272 U/L (26-192); CREATININE FOR GFR 0.45 MG/DL (0.55-1.30); GLOMERULAR FILTRATION RATE > 60.0 (>60); GLUCOSE, FASTING 90 MG/DL (70-100); NT-PRO BNP 575 PG/ML (<125); POTASSIUM SERUM 3.7 MEQ/L (3.5-5.1); SODIUM LEVEL 141 MEQ/L (136-145); THYROXINE (T4) 7.5 UG/DL (4.5-12.0); TOTAL PROTEIN 5.6 GM/DL (6.4-8.2); TROPONIN I 1.27 NG/ML (< 0.10)
[2021-07-12] MEDS ORDERED: ASPIRIN 325 MG TAB PO ONE (21:00)
[2021-07-12] MEDS ORDERED: NS 1,000 ML IV ONE (21:10)
[2021-07-12] MEDS ORDERED: HEPARIN SOD (PORCINE) 5000UNITS/ML 1ML VIAL/SYRINGE IV ONE (21:40)
[2021-07-12] MEDS ORDERED: HEPARIN DRIP 25,000 UNITS in IV 1 EA IV SCH (21:40)
[2021-07-12] MEDS ORDERED: NS 500 ML IV ONE (21:45)
[2021-07-12] MEDS ORDERED: ISOVUE-370 76% 100ML VIAL As Ordered ONE (22:01)
[2021-07-12 22:08] LABS: HCG, SERUM QUALITATIVE NEGATIVE (NEGATIVE)
--- NOTE | 2021-07-12 22:45 | REPVR ---
PROCEDURE INFORMATION: Exam: US Duplex Lower Extremity Veins, Bilateral Exam date and time: 07/12/2021 10:19 PM Age: 36 years old Clinical indication: Abnormal findings; Abnormal lab test; Other: Elevates troponin; Additional info: Elevated troponin TECHNIQUE: Imaging protocol: Real-time duplex ultrasound of the extremities with 2-D hernandez scale, color Doppler flow and spectral waveform analysis with image documentation. Complete exam focused on the bilateral lower extremity veins. COMPARISON: US PELVIC NON-OB COMPLETE 12/17/2015 2:44 PM FINDINGS: Right deep veins: Unremarkable. The common femoral, femoral, popliteal, posterior tibial and peroneal veins are patent without thrombus. Normal Doppler waveforms. Normal compressibility and/or augmentation response. Right superficial veins: Saphenofemoral junction is patent without thrombus. Left deep veins: Unremarkable. The common femoral, femoral, popliteal, posterior tibial and peroneal veins are patent without thrombus. Normal Doppler waveforms. Normal compressibility and/or augmentation response. Left superficial veins: Saphenofemoral junction is patent without thrombus. Soft tissues: Unremarkable. IMPRESSION: No sonographic evidence of deep vein thrombosis. Electronically signed by: Jhonathan Michel On 07/12/2021 22:45:10 PM
--- NOTE | 2021-07-12 23:22 | REPVR ---
PROCEDURE INFORMATION: Exam: CT Chest Without Contrast; Diagnostic Exam date and time: 07/12/2021 11:05 PM Age: 36 years old Clinical indication: Shortness of breath; Additional info: Hypoxia TECHNIQUE: Imaging protocol: Diagnostic computed tomography of the chest without contrast. Axial, coronal and sagittal reformatted images were created and reviewed. Radiation optimization: All CT scans at this facility use at least one of these dose optimization techniques: automated exposure control; mA and/or kV adjustment per patient size (includes targeted exams where dose is matched to clinical indication); or iterative reconstruction. COMPARISON: CT Chest with contrast 09/12/2020 1:41 AM FINDINGS: Lungs: Extensive reticulonodular infiltration with associated peribronchial thickening. Patchy areas of more confluent subsegmental consolidation in the right upper and left greater than right lower lobes. Pleural spaces: Unremarkable. No pneumothorax. No pleural effusion. Heart: Unremarkable. No cardiomegaly. No pericardial effusion. Aorta: Unremarkable. No aneurysm. Lymph nodes: Mild nonspecific mediastinal lymphadenopathy, similar to prior and likely reactive. Bones/joints: No acute osseous abnormality. Soft tissues: Unremarkable. IMPRESSION: 1. Extensive reticulonodular infiltration with associated peribronchial thickening and patchy areas of more confluent subsegmental consolidation in the right upper and left greater than right lower lobes. Query multifocal infection. 2. Additional findings, as above. Electronically signed by: Jhonathan Michel On 07/12/2021 23:22:16 PM
--- NOTE | 2021-07-12 23:30 | REPVR ---
PROCEDURE INFORMATION: Exam: CT Abdomen And Pelvis Without Contrast Exam date and time: 07/12/2021 11:05 PM Age: 36 years old Clinical indication: Abdominal pain; Generalized; Additional info: Abd pain TECHNIQUE: Imaging protocol: Computed tomography of the abdomen and pelvis without contrast. Axial, coronal and sagittal reformatted images were created and reviewed. Radiation optimization: All CT scans at this facility use at least one of these dose optimization techniques: automated exposure control; mA and/or kV adjustment per patient size (includes targeted exams where dose is matched to clinical indication); or iterative reconstruction. COMPARISON: CT ABD/PEL W/IV CONTRAST ONLY 09/12/2020 1:41 AM FINDINGS: Liver: Diffuse hepatic steatosis. Gallbladder and bile ducts: Small amount of dependent hyperattenuation in the gallbladder, likely secondary to sludge and/or small stones. Pancreas: Unremarkable. Spleen: Unremarkable. Adrenal glands: Normal. No mass. Kidneys and ureters: No mass. No radiodense calculi. No hydronephrosis. Stomach and bowel: Multiple thick-walled loops of small bowel in the left abdomen. Moderate amount of retained stool in the colon. No obstruction. No pneumatosis. Appendix: Normal. Intraperitoneal space: Mild infiltration of the mesenteric fat in the left abdomen. No ascites. No organized collection. No free air. Vasculature: Unremarkable. No aneurysm. Lymph nodes: Small mesenteric lymph nodes, likely reactive. No pathologically enlarged lymph nodes. Urinary bladder: Unremarkable as visualized. Reproductive: 3.2 x 2.9 cm left adnexal cystic lesion. Bones/joints: No acute osseous abnormality. Soft tissues: Unremarkable. IMPRESSION: 1. Nonspecific enteritis, as described above. 2. 3.2 x 2.9 cm left adnexal cystic lesion. 3. Additional findings, as above. Electronically signed by: Jhonathan Michel On 07/12/2021 23:29:51 PM
[2021-07-12] MEDS ORDERED: DOXYCYCLINE HYCLATE 100 MG in D5W MINI-BAG PLUS 100 ML IV ONE (23:35)
[2021-07-12] MEDS ORDERED: DOXYCYCLINE HYCLATE 100MG TABLET PO ONE (23:55)
[2021-07-13 01:12] LABS: INR 1.12; PROTHROMBIN TIME 14.8 SECONDS (12.7-14.5)
[2021-07-13 01:14] LABS: PARTIAL THROMBOPLASTIN TIME 63.4 SECONDS (25.9-37.0)
[2021-07-13 01:23] LABS: CK-MB VALUE MASS 1.9 NG/ML (<3.6); MB/CK RELATIVE INDEX 0.9 (< OR =4); TROPONIN I 1.02 NG/ML (< 0.10)
[2021-07-13] MEDS ORDERED: ALBUTEROL SULFATE 2.5 MG/0.5 ML INH NEB SOLN INH ONE (03:15)
[2021-07-13] MEDS ORDERED: IPRATROPIUM 0.02% SOLN 0.5MG 2.5ML NEB INH ONE (03:15)
[2021-07-13 04:45] VITALS: BP 97/68
--- NOTE | 2021-07-13 07:37 | ECGEPIP ---
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
--- NOTE | 2021-07-13 07:50 | ECGEPIP ---
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
== END 2021-07-13 05:02 | disposition short-term general hospital (02) ==
LOC: M ED 17:57
DX: I21.4 Non-ST elevation (NSTEMI) myocardial infarction (principal); R09.02 Hypoxemia; R94.31 Abnormal electrocardiogram [ECG] [EKG]; B18.2 Chronic viral hepatitis C; F17.200 Nicotine dependence, unspecified, uncomplicated; Z79.899 Other long term (current) drug therapy; Z88.1 Allergy status to other antibiotic agents; Z88.8 Allergy status to other drugs, medicaments and biological substances

== ENCOUNTER → 2023-04-19 | Outpatient (REF) ==
[~2023-04-19] MED LIST changes: +ALBU6.7H6 INH; -DOXY-350 PO; +DOXY-444 PO; -PROV108A INH
== END ==
LOC: M LAB 14:19